=== PATIENT | female | born 1995 | race Two or more races ===

== ENCOUNTER 2024-03-31 10:47 | Emergency (ER) | payer MEDICAID, SELFPAY ==
[2024-03-31 10:53] VITALS: PULSE 92; RESP 20; O2SAT 98
[2024-03-31 11:04] VITALS: BP 153/84; PULSE 91; RESP 20; TEMP 37.1; O2SAT 97
[2024-03-31] MEDS: METOCLOPRAMIDE INJ 5 MG/ML VIAL 2 ML 10 MG IM ×2 (11:06→19:36)
[2024-03-31 11:28] LABS: Collection Type, Urine Clean Catch
[2024-03-31 11:40] LABS: Bacteria,Urine 4+; Bilirubin,Urine 1+ (Negative); Blood,Urine 2+ (Negative); Color,Urine Orange (Lt Yel-Yel); Culture Indicated,Urine Contaminated; Glucose, Urine Trace (Negative); Ketones,Urine 3+ (Negative); Leukocyte Esterase,Urine Positive (Negative); Nitrite,Urine Negative (Negative); PH,Urine 5.5 (5.0-7.0); Protein,Urine 2+ (Neg - Trace); RBC,Urine 45 /hpf (0-3); Specific Gravity,Urine 1.032 (1.001-1.035); Squamous Epithelial Cell,Urine 129 /hpf (0-5); WBC,Urine 68 /hpf (0-5)
[2024-03-31 11:41] LABS: Clarity,Urine Turbid (Clear/Hazy)
[2024-03-31 11:46] LABS: HCG Qualitative,Urine Negative
[2024-03-31 11:51] LABS: Basophils % (Auto) 0 % (0-2.5); Eosinophils % (Auto) 0 % (0-10); Hematocrit 43.3 % (36.0-46.0); Hemoglobin 14.2 g/dL (12.0-16.0); Immature Granulocytes % (Auto) 1 % (0-0); Immature Granulocytes Auto 0.07 Thou/mm3 (0.00-0.00); Lymphocytes # (Auto) 3.3 Thou/mm3 (1.0-4.8); Lymphocytes % (Auto) 25 % (10-50); Mean Corpuscular HGB Conc 32.8 g/dl (31.0-37.0); Mean Corpuscular Hemoglobin 26.2 pg (25.0-35.0); Mean Corpuscular Volume 80 fL (80-100); Monocytes % (Auto) 7 % (0-12); Neutrophils # (Auto) 8.7 Thou/mm3 (1.8-7.7); Neutrophils % (Auto) 67 % (37-80); Nucleated Red Blood Cell % 0 /100 WBC (0); Platelet Count 399 Thou/mm3 (140-440); RDW Standard Deviation 37.1 fL (36.4-46.3); Red Blood Count 5.41 Miln/mm3 (4.00-5.20); White Blood Count 13.1 Thou/mm3 (3.6-11.0)
[2024-03-31 12:13] LABS: Alanine Aminotransferase 62 U/L (10-49); Albumin, Serum 5.2 gm/dL (3.5-5.0); Albumin/Globulin Ratio 1.7 (1.2-2.2); Alkaline Phosphatase 105 U/L (46-116); Anion Gap 10 (7-16); Aspartate Amino Transferase 37 U/L (0-34); BUN/Creatinine Ratio 11 Ratio (12-20); Bilirubin,Total 1.7 mg/dL (0.3-1.2); Blood Urea Nitrogen 10 mg/dL (9-23); Calcium 10.2 mg/dL (8.3-10.6); Calcium (Corrected) 10.2 mg/dL (8.5-10.1); Carbon Dioxide 27.7 mMol/L (20.0-31.0); Chloride 100 mMol/L (98-107); Creatinine (Component) 0.9 mg/dL (0.6-1.3); Glucose 134 mg/dL (74-106); Lipase 36 U/L (12-53); Osmolality,Calculated 276 (275-295); Potassium 3.2 mMol/L (3.4-5.1); Sodium 138 mMol/L (136-145); Total Protein 8.2 gm/dL (5.7-8.2); eGFR > 60 See Note
--- NOTE | 2024-03-31 12:25 | PD.EDRME ---
Rapid Medical Screening Exam RME Arrival date/time: 03/31/24 10:47 28-year-old female presents emergency department complaint of nausea vomiting abdominal pain Time Seen by Provider: 03/31/24 11:02 Vital signs: Vital Signs Temperature 98.7 F 03/31/24 11:04 Pulse Rate 91 03/31/24 11:04 Respiratory Rate 20 03/31/24 11:04 Blood Pressure 153/84 H 03/31/24 11:04 Pulse Oximetry (%) 97 03/31/24 11:04 Oxygen Delivery Method Room Air 03/31/24 11:04
--- NOTE | 2024-03-31 12:26 | XR_ITS ---
Examination: Abdomen sonogram, Limited Date and time of exam: March 31, 2024 1303 hours INDICATIONS: Epigastric pain nausea vomiting beginning 3 days ago Technique: Real-time bui scale transabdominal sonographic images of the upper abdomen obtained. Findings: Absent gallbladder Normal common bile duct 0.4 cm Pancreatic head 2.5 cm Liver 13 cm fatty infiltration no focal liver lesions Normal hepatopedal portal venous flow Patent IVC IMPRESSION: Absent gallbladder Normal common bile duct Fatty liver
[2024-03-31] MEDS: PROMETHAZINE INJ 25 MG/ML VIAL 12.5 MG IM (14:51)
[2024-03-31 16:04] VITALS: BP 146/92; PULSE 76; RESP 16; TEMP 36.7; O2SAT 100
[2024-03-31 17:05] LABS: Cardiac Risk Estimate 2.8 RATIO (3.7-5.6); Cholesterol 127 mg/dL (132-200); HDL Cholesterol 45 mg/dL (40-60); LDL Cholesterol,Calculated 63 mg/dL (0-130); Triglycerides 96 mg/dL (30-150)
--- NOTE | 2024-03-31 18:38 | PD.EDADULT ---
ED General RME/HPI General Chief complaint: Nausea/Vomiting/Diarrhea Stated complaint: VOMITING Time Seen by Provider: 03/31/24 11:02 Arrival date/time: 03/31/24 10:47 CC: Center abdominal pain HPI patient notes that she has had a hernia for the past 2 to 3 years, states that after vomiting it popped out . Patient states localized pain is 6 to an 8 on a 10 scale nonradiating no longer nauseated. Patient denies fever chills chest pain shortness of breath or difficulty breathing. RME / HPI RME / HPI narrative: 03/31/24 10:47 28-year-old female presents emergency department complaint of nausea vomiting abdominal pain Related Data Home Medications ?Medication ?Instructions ?Recorded ?Confirmed alprazolam 1 mg tablet (Xanax) 1 mg PO TID PRN 06/08/22 12/18/22 escitalopram oxalate 10 mg tablet 10 mg PO QDAY 06/08/22 12/18/22 (Lexapro) metoprolol succinate 50 mg 50 mg PO BID 06/08/22 12/18/22 tablet,extended release 24 hr (Toprol XL) norgestimate-ethinyl estradiol 1 tab PO QDAY 06/08/22 12/18/22 0.18 mg/0.215mg/0.25mg-35 mcg(28)tablet omeprazole 40 mg capsule,delayed 40 mg PO QDAY 06/08/22 12/18/22 release promethazine 25 mg tablet 25 mg PO TID PRN 06/08/22 12/18/22 quetiapine 100 mg tablet (Seroquel) 100 mg PO QDAY 06/08/22 12/18/22 zolpidem 10 mg tablet (Ambien) 10 mg PO QHS 06/08/22 12/18/22 Previous Rx's ?Medication ?Instructions ?Recorded meloxicam 7.5 mg tablet 7.5 mg PO QDAY #10 tabs 03/31/24 Allergies Allergy/AdvReac Type Severity Reaction Status Date / Time clavulanic acid Allergy Severe burning Verified 12/18/22 13:14 [From Augmentin] sensation amoxicillin [From Augmentin] AdvReac Severe burning Verified 12/18/22 13:14 sensation ibuprofen AdvReac Severe DUE TO Verified 12/18/22 13:14 KIDNEYS Review of Systems Review of Systems Narrative Review of Systems: GEN: No fever, no chills, no weight loss EYES: No discharge, no visual changes, no pain HEENT: No ear pain, no congestion, no sore throat PULM: No shortness of breath, no cough, no congestion CV: No chest pain, no dyspnea on exertion, no palpitations GI: No nausea, no vomiting, no diarrhea, + pain, no constipation : No frequency, no urgency, no dysuria MUSC/SKEL: No joint pain, no back pain SKIN: No rash PSYCH: No hallucinations, no depression HEME/LYMPH: No easy bleeding or bruising tendencies NEURO: No weakness, no headache Past Medical History Past Medical History NEUROLOGIC: Negative Neurological Disorders or Seizures CARDIAC: Positive Cardiac Disorders and Hypertension (Started medication at 13 years old); Negative Congestive Heart Failure RESPIRATORY: Negative Chronic Obstructive Pulmonary Disease (COPD) or Asthma GASTROINTESTINAL: Positive Gastrointestinal Disorders, Gall Bladder Disease, Gastroesophageal Reflux Disease and Obesity GENITOURINARY: Positive Genitourinary Disorders (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); Negative Renal Disease REPRODUCTIVE: Positive Previous Pregnancies (); Negative Endometriosis MUSCULOSKELETAL: Negative Musculoskeletal Disorders ENDOCRINE: Negative Endocrine Disorders, Diabetes Mellitus Type 1 or Diabetes Mellitus Type 2 HEMATOLOGIC: Negative Blood Disorders, Anemia, Sickle Cell Disease or Clotting Problems PSYCHO/SOCIAL: Positive Anxiety OTHER HISTORY: Positive Falls; Negative Hospitalization (age 3), Autoimmune Disease, Shingles, Blood Transfusions, Anesthesia Reactions, Organ Transplant, Chemotherapy, Radiation Therapy, Hyperbaric Therapy, MRSA, VRSA or Vancomycin-Resistant Enterococci Family History FAMILY HISTORY: Positive Family Respiratory Disorders (COPD) and Family Cardiac Disorders (grandmother-HTN, heart attack, coronary artery disease, stroke); Negative Family Psychiatric Problems, Family Gastrointestinal Problems, Family Cancer, Family Surgery or Family Anesthesia Reaction Surgical History SURGICAL: Positive Nephrectomy (3rd kidney removed as a child); Negative Cardiac Surgery, Endocrine Surgery, Ear Surgery, Abdominal Surgery, Joint Replacement, Neurologic Surgery, Mastectomy, Section or Organ Transplant Social History SMOKING STATUS: Current some day smoker SECOND HAND EXPOSURE: Yes ED Exam Narrative Physical exam: [General: Obese, in mild discomfort but not in any acute distress Head normocephalic HEENT: Eyes pupils are PERRLA EOMs are intact all other subsystems of HEENT are within acceptable limits Neck is supple nontender Chest equal chest rise nontender to palpation Respiratory: Clear to auscultation no wheezes crackles or rubs CV: Rate rhythm is regular no murmurs rubs or clicks Abdomen is distended secondary to body habitus soft nontender. Site-specific tenderness just proximal to the umbilicus subtle bulge is appreciated underneath the adipose tissue of the abdomen. Back: No CVA tenderness no spinous process tenderness from cervical spine thoracic and lumbar spine Skin: Intact no petechiae rash induration ulceration or crepitus Extremities: Moving all extremity against resistance cap refill less than 2 seconds neurosensory intact Neuro: Awake alert oriented x3 Glascow coma 15 no focal deficits] Course Quality Measures none Orders Category Date Time Status US gall bladder Stat Exams 03/31/24 12:26 Completed CBC Stat Lab 03/31/24 11:30 Completed Comprehensive Metabolic Panel Stat Lab 03/31/24 11:30 Completed HCG Qualitative,Urine Stat Lab 03/31/24 11:24 Completed Lipase Stat Lab 03/31/24 11:30 Completed Lipid Panel Stat Lab 03/31/24 11:30 Completed UA, C/S IF [Urinalysis, C/S if Indicated] Stat Lab 03/31/24 11:24 Completed Meloxicam [Mobic] Med 03/31/24 18:43 Discontinued 7.5 mg PO X1 ONE Metoclopramide Inj [Reglan Inj] Med 03/31/24 11:02 Discontinued 10 mg IM X1 ONE Metoclopramide Inj [Reglan Inj] Med 03/31/24 19:27 Discontinued 10 mg IM X1 ONE Ondansetron Odt [Zofran Odt] Med 03/31/24 19:09 Discontinued 4 mg PO X1 ONE Promethazine Inj [Phenergan Inj] Med 03/31/24 14:26 Discontinued 12.5 mg IM X1 ONE Vital Signs Vital signs: Vital Signs Temperature 98.7 F 03/31/24 11:04 Pulse Rate 91 03/31/24 11:04 Respiratory Rate 20 03/31/24 11:04 Blood Pressure 153/84 H 03/31/24 11:04 Pulse Oximetry (%) 97 03/31/24 11:04 Oxygen Delivery Method Room Air 03/31/24 11:04 Procedures -ED Procedure Comment Hernia reduction: Verbal consent obtained, patient placed in Trendelenburg. Then with gentle pressure, the umbilical hernia was reduced without complication patient experienced immediate relief. MDM Patient data External records reviewed:: [facility] previous records Clinical information provided by:: patient Social determinants that could affect healthcare access:: none Patient has the following chronic illnesses:: Umbilical hernia anxiety hypertension How is presenting disease/condition affected by chronic disease/condition?: uneffected by Evaluation data The following diagnostics were reviewed and interpreted by me:: lab results and radiology exam(s) Lab and/or radiology exams considered but not ordered:: CBC shows a mild leukocytosis of 13.1 no anemia or thrombocytopenia CMP's shows no acute electrolyte imbalances renal impairment or transaminitis. T. bili is mildly elevated Lipase is normal Urine is unremarkable Ultrasound as interpreted by me read by radiology shows the patient has an absent gallbladder and no CBD dilatation. Interpretation Summary: Umbilical hernia with reduction Medications Medications considered but not ordered:: None Medication administrations:: Medication Administration History Discontinued Medications Meloxicam (Meloxicam 7.5 Mg Tablet) 7.5 mg PO X1 ONE Stop: 03/31/24 18:44 Last Admin: 03/31/24 19:37 Dose: 7.5 mg Documented By: TIESHA Metoclopramide HCl (Metoclopramide Inj 5 Mg/Ml Vial 2 Ml) 10 mg IM X1 ONE; Protocol Stop: 03/31/24 11:03 Last Admin: 03/31/24 11:06 Dose: 10 mg Documented By: MAYRA Metoclopramide HCl (Metoclopramide Inj 5 Mg/Ml Vial 2 Ml) 10 mg IM X1 ONE; Protocol Stop: 03/31/24 19:28 Last Admin: 03/31/24 19:36 Dose: 10 mg Documented By: TIESHA Ondansetron HCl (Ondansetron Odt 4 Mg Tabrap) 4 mg PO X1 ONE; Protocol Stop: 03/31/24 19:10 Last Admin: 03/31/24 19:18 Dose: 4 mg Documented By: TIESHA Promethazine HCl (Promethazine Inj 25 Mg/Ml Vial) 12.5 mg IM X1 ONE; Protocol Stop: 03/31/24 14:27 Last Admin: 03/31/24 14:51 Dose: 12.5 mg Documented By: MAYRA None Consultations Consultation(s) initiated? (list below): No Diagnosis Differential Diagnosis ED Complaint MDM: Umbilical hernia incarcerated hernia choledocholithiasis Most likely diagnosis given after review of the tests above:: Umbilical hernia Admission Indicated Admission indicated?: not indicated Explain why admission is indicated or not indicated:: Stable for outpatient follow-up Admission Request Was there a request for admission?: No Disposition Plan Disposition Plan: Discharge Discharge Attestation Discharge Attestation: The patient and all family members were given an opportunity to ask questions and understood the discharge instructions. Discharge instructions specifically effects, indications for sooner follow up or return to the emergency department, and the expected course of current diagnosis. Patient condition: Stable Medical Decision Making Differential Diagnosis Differential Diagnosis: Umbilical hernia incarcerated hernia choledocholithiasis Lab Data 03/31/24 11:30 03/31/24 11:30 Labs: Lab Results 03/31/24 03/31/24 Range/Units 11: 11:30 WBC 13.1 H (3.6-11.0) Thou/mm3 RBC 5.41 H (4.00-5.20) Miln/mm3 Hgb 14.2 (12.0-16.0) g/dL Hct 43.3 (36.0-46.0) % MCV 80 (80-100) fL MCH 26.2 (25.0-35.0) pg MCHC 32.8 (31.0-37.0) g/dl RDW Std Deviation 37.1 (36.4-46.3) fL Plt Count 399 (140-440) Thou/mm3 Neut % (Auto) 67 (37-80) % Lymph % (Auto) 25 (10-50) % [place] % (Auto) 7 (0-12) % Eos % (Auto) 0 (0-10) % Baso % (Auto) 0 (0-2.5) % Neut # (Auto) 8.7 H (1.8-7.7) Thou/mm3 Lymph # (Auto) 3.3 (1.0-4.8) Thou/mm3 [place] # (Auto) 1.0 H (0.0-0.8) Thou/mm3 Eos # (Auto) 0.0 (0.0-0.5) Thou/mm3 Baso # (Auto) 0.0 (0.0-0.2) Thou/mm3 Immature Gran # (Auto) 0.07 H (0.00-0.00) Thou/mm3 Absolute Nucleated RBC 0.00 (0.00-0.00) Thou/mm3 Immature Gran % 1 H (0-0) % Nucleated RBC % 0 (0) /100 WBC Sodium 138 (136-145) mMol/L Potassium 3.2 L (3.4-5.1) mMol/L Chloride 100 (98-107) mMol/L Carbon Dioxide 27.7 (20.0-31.0) mMol/L Anion Gap 10 (7-16) BUN 10 (9-23) mg/dL Creatinine 0.9 (0.6-1.3) mg/dL Estim Creat Clear Calc Not Performed. eGFR > 60 (60 - ) See Note BUN/Creatinine Ratio 11 L (12-20) Ratio Glucose 134 H (74-106) mg/dL Calculated Osmolality 276 (275-295) Calcium 10.2 (8.3-10.6) mg/dL Corrected Calcium 10.2 H (8.5-10.1) mg/dL Total Bilirubin 1.7 H (0.3-1.2) mg/dL AST 37 H (0-34) U/L ALT 62 H (10-49) U/L Alkaline Phosphatase 105 (46-116) U/L Total Protein 8.2 (5.7-8.2) gm/dL Albumin 5.2 H (3.5-5.0) gm/dL Globulin 3.0 (2.3-3.5) gm/dL Albumin/Globulin Ratio 1.7 (1.2-2.2) Triglycerides 96 (30-150) mg/dL Cholesterol 127 L (132-200) mg/dL LDL Cholesterol, Calc 63 (0-130) mg/dL HDL Cholesterol 45 (40-60) mg/dL Cholesterol/HDL Ratio 2.8 L (3.7-5.6) RATIO Lipase 36 (12-53) U/L Ur Collection Type Clean Catch Urine Color [place] A (Lt Yel-Yel) Urine Clarity Turbid A (Clear/Hazy) Urine pH 5.5 (5.0-7.0) Ur Specific [place] 1.032 (1.001-1.035) Urine Protein 2+ A (Neg - Trace) Urine Glucose (UA) Trace (Negative) Urine Ketones 3+ A (Negative) Urine Blood 2+ A (Negative) Urine Nitrite Negative (Negative) Urine Bilirubin 1+ A (Negative) Urine Urobilinogen (Auto) 2.0 (0.0-1.0) mg/dL Ur Leukocyte Esterase Positive (Negative) Urine RBC 45 H (0-3) /hpf Urine WBC 68 H (0-5) /hpf Ur Squamous Epith Cells 129 H (0-5) /hpf Urine Bacteria 4+ A (None) Ur Culture Indicated? Contaminated Urine HCG, Qual Negative Discharge Plan Plan Patient Disposition: HOME (Self Care) Patient condition on transfer: Stable Prescriptions/Referrals Prescriptions/Med Rec: New meloxicam 7.5 mg tablet 7.5 mg PO QDAY Qty: 10 0RF No Action omeprazole 40 mg capsule,delayed release(DR/EC) 40 mg PO QDAY zolpidem [Ambien] 10 mg tablet 10 mg PO QHS promethazine 25 mg tablet 25 mg PO TID PRN escitalopram oxalate [Lexapro] 10 mg tablet 10 mg PO QDAY alprazolam [Xanax] 1 mg tablet 1 mg PO TID PRN metoprolol succinate [Toprol XL] 50 mg tablet extended release 24 hr 50 mg PO BID quetiapine [Seroquel] 100 mg tablet 100 mg PO QDAY norgestimate-ethinyl estradiol 0.18/0.215/0.25 mg-35 mcg (28) tablet 1 tab PO QDAY Referrals: Wilner Escobar MD [Primary Care Provider] - In 1 week Problem List Clinical Impression: Hernia, umbilical Patient/Caregiver Discharge Instructions Other Activity Instructions:: Take the medications as prescribed follow-up with your primary care provider if there is a worsening of symptoms consider consulting with a surgeon or return the emergency room. Education Materials: ED Hernia (Adult) Print Language: Mongolian Stand Alone Forms: Lynda Award Info., Work/School Release, Patient Portal Info Letter Attestation Attestation The patient was seen by the midlevel practitioner. I, the co-signing physician, was present during the entire ER visit. While I did not physically examine the patient, I was available for consultation as needed.
[2024-03-31] MEDS: ONDANSETRON ODT 4 MG TABRAP PO (19:18)
[2024-03-31] MEDS: MELOXICAM 7.5 MG TABLET PO (19:37)
[2024-03-31 20:07] VITALS: BP 154/83; PULSE 61; RESP 18; TEMP 36.7; O2SAT 99
== END 2024-03-31 20:38 | disposition home or self-care (01) ==
PROVIDERS: Nurse Practitioner Primary Care; Registered Nurse General Practice; Emergency Provider Emergency Medicine; PCP Family Medicine
DX: K42.9 Umbilical hernia without obstruction or gangrene (principal)
CPT/HCPCS: 36415; 76705; 80053; 80061; 81001; 81025; 83690; 85025; 96372; 99284; J2550; J2765; Q0162; A9270

== ENCOUNTER 2024-09-02 10:36 | Outpatient (AMB) | payer MEDICAID, SELFPAY ==
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
[2024-09-02 10:57] VITALS: BP 127/70; PULSE 76; RESP 18; TEMP 36.2; O2SAT 97; BMI 39.3
== END 2024-09-02 11:20 | disposition home or self-care (01) ==
LOC: HODSOBC 10:36
PROVIDERS: PCP Family Medicine; Referring Provider Family Medicine; Supervising Provider Advanced Practice Midwife; Visit Provider Advanced Practice Midwife
DX: O09.891 Supervision of other high risk pregnancies, first trimester (principal); Z3A.08 8 weeks gestation of pregnancy; O10.911 Unspecified pre-existing hypertension complicating pregnancy, first trimester; O99.331 Smoking (tobacco) complicating pregnancy, first trimester; F17.210 Nicotine dependence, cigarettes, uncomplicated; O09.291 Supervision of pregnancy with other poor reproductive or obstetric history, first trimester; Z87.59 Personal history of other complications of pregnancy, childbirth and the puerperium; O99.341 Other mental disorders complicating pregnancy, first trimester; F41.9 Anxiety disorder, unspecified; F32.A Depression, unspecified; O99.321 Drug use complicating pregnancy, first trimester; F12.90 Cannabis use, unspecified, uncomplicated; O99.891 Other specified diseases and conditions complicating pregnancy; M54.2 Cervicalgia; G89.29 Other chronic pain; Z79.899 Other long term (current) drug therapy
CPT/HCPCS: 99213; G0463

== ENCOUNTER 2024-09-23 11:08 | Outpatient (AMB) | payer MEDICAID, SELFPAY ==
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
[2024-09-23 11:19] VITALS: BP 116/73; PULSE 75; RESP 16; TEMP 36.6; O2SAT 99; BMI 39.7
[2024-09-23 14:04] LABS: Bilirubin,Urine Clinitek Negative (Negative); Blood,Urine Clinitek Trace-intact (Negative); Glucose, Urine Clinitek Negative (Negative); Ketones,Urine Clinitek Negative (Negative); Leukocyte Esterase,Urine Clin 1+ (Negative); Nitrite,Urine Clinitek Negative (Negative); PH,Urine Clinitek 7.5 (5.0-7.0); Protein,Urine Clinitek 1+ (Neg - Trace); Urobilinogen,Urine Clinitek 0.2 mg/dL (0.0-1.0)
== END 2024-09-23 11:56 | disposition home or self-care (01) ==
LOC: HODSOBC 11:08
PROVIDERS: PCP Family Medicine; Referring Provider Family Medicine; Supervising Provider Advanced Practice Midwife; Visit Provider Advanced Practice Midwife
DX: O09.891 Supervision of other high risk pregnancies, first trimester (principal); Z3A.11 11 weeks gestation of pregnancy; O10.911 Unspecified pre-existing hypertension complicating pregnancy, first trimester; Z79.899 Other long term (current) drug therapy; O99.341 Other mental disorders complicating pregnancy, first trimester; F43.10 Post-traumatic stress disorder, unspecified; F31.9 Bipolar disorder, unspecified; F41.9 Anxiety disorder, unspecified; O99.611 Diseases of the digestive system complicating pregnancy, first trimester; K21.9 Gastro-esophageal reflux disease without esophagitis; Z87.891 Personal history of nicotine dependence
CPT/HCPCS: 81001; 99215; G0463

== ENCOUNTER 2024-10-02 13:23 | Emergency (ER) | payer MEDICAID, SELFPAY ==
[2024-10-02] VITALS (8 sets, daily range): BP systolic 122–176; BP diastolic 86–111; PULSE 92–93; RESP 18–28; TEMP 35.9–37.2; O2SAT 96–100; BMI 39.6
[2024-10-02 14:04] LABS: Basophils % (Auto) 0 % (0-2.5); Eosinophils # (Auto) 0.1 Thou/mm3 (0.0-0.5); Eosinophils % (Auto) 1 % (0-10); Hematocrit 39.4 % (36.0-46.0); Hemoglobin 13.8 g/dL (12.0-16.0); Immature Granulocytes % (Auto) 0 % (0-0); Immature Granulocytes Auto 0.04 Thou/mm3 (0.00-0.00); Lymphocytes # (Auto) 2.4 Thou/mm3 (1.0-4.8); Lymphocytes % (Auto) 22 % (10-50); Mean Corpuscular Hemoglobin 27.6 pg (25.0-35.0); Mean Corpuscular Volume 79 fL (80-100); Monocytes # (Auto) 0.6 Thou/mm3 (0.0-0.8); Monocytes % (Auto) 5 % (0-12); Neutrophils # (Auto) 7.8 Thou/mm3 (1.8-7.7); Neutrophils % (Auto) 72 % (37-80); Nucleated Red Blood Cell % 0 /100 WBC (0); Platelet Count 292 Thou/mm3 (140-440); RDW Standard Deviation 37.8 fL (36.4-46.3); White Blood Count 10.8 Thou/mm3 (3.6-11.0)
[2024-10-02] MEDS: PROMETHAZINE INJ 25 MG/ML VIAL IM (14:06)
[2024-10-02] MEDS: SODIUM CHLORIDE 0.9% 1000 ML 1,000 ML 999 ML IV (14:07)
--- NOTE | 2024-10-02 14:07 | XR_ITS ---
Examination: Complete OB ultrasound, less than 14 weeks, transabdominal Date and time of exam: October 02, 2024 1423 hours INDICATIONS: Nausea vomiting beginning 4 days ago Technique: Obstetrical ultrasound images less than 14 weeks performed via transabdominal imaging Findings: A normal shaped single intrauterine gestation is present in the uterus. pole 3.9 cm corresponds to 10 weeks 6 days gestational age Cardiac motion 176 BPM Ultrasonographic survey of visible and placental structures unremarkable. Amniotic fluid volume appears appropriate for this estimated gestational age. Right ovary 3.3 cm arterial flow 9 mm follicular cyst Left ovary 4.0 cm arterial flow 17 mm follicular cyst IMPRESSION: Viable intrauterine gestation 10 weeks 6 days.
[2024-10-02 14:28] LABS: Alanine Aminotransferase < 7 U/L (10-49); Albumin, Serum 4.4 gm/dL (3.5-5.0); Albumin/Globulin Ratio 1.5 (1.2-2.2); Alkaline Phosphatase 61 U/L (46-116); Anion Gap 14 (7-16); Aspartate Amino Transferase 17 U/L (0-34); BUN/Creatinine Ratio 8 Ratio (12-20); Bilirubin,Total 0.8 mg/dL (0.3-1.2); Blood Urea Nitrogen 5 mg/dL (9-23); Calcium 9.4 mg/dL (8.3-10.6); Calcium (Corrected) 9.4 mg/dL (8.5-10.1); Carbon Dioxide 23.3 mMol/L (20.0-31.0); Chloride 100 mMol/L (98-107); Creatinine (Component) 0.6 mg/dL (0.6-1.3); Estimated Creatinine Clearance 145.9 mL/min (>60); Glucose 96 mg/dL (74-106); Lipase 66 U/L (12-53); Osmolality,Calculated 271 (275-295); Potassium 3.3 mMol/L (3.4-5.1); Sodium 137 mMol/L (136-145); Total Protein 7.4 gm/dL (5.7-8.2); eGFR > 60 See Note
[2024-10-02 15:31] LABS: Collection Type, Urine Clean Catch
[2024-10-02 15:35] LABS: HCG Qualitative,Urine Positive
[2024-10-02 15:40] LABS: Bilirubin,Urine Negative (Negative); Blood,Urine Negative (Negative); Color,Urine Yellow (Lt Yel-Yel); Glucose, Urine Negative (Negative); Ketones,Urine 4+ (Negative); Leukocyte Esterase,Urine Positive (Negative); Nitrite,Urine Negative (Negative); PH,Urine 6.5 (5.0-7.0); Protein,Urine 1+ (Neg - Trace); RBC,Urine 3 /hpf (0-3); Specific Gravity,Urine 1.021 (1.001-1.035); Squamous Epithelial Cell,Urine 22 /hpf (0-5); Urobilinogen,Urine Negative mg/dL (0.0-1.0); WBC,Urine 17 /hpf (0-5)
[2024-10-02 15:46] LABS: Bacteria,Urine 1+; Clarity,Urine Hazy (Clear/Hazy)
--- NOTE | 2024-10-02 15:55 | EDNOTE_ITS ---
Nausea/Vomit./Diarrhea-RME/HPI General Chief complaint: Nausea/Vomiting/Diarrhea Stated complaint: COMPLICATIONS Time Seen by Provider: 10/02/24 13:36 Arrival date/time: 10/02/24 13:23 Limitations: no limitations RME / HPI RME / HPI Narrative: 29 year old female who is currently ~ 10 weeks gestational age, and history of gestational diabetes with previous presents to the ED for evaluati on of nausea and vomiting beginning several days ago. Additionally reports she is feeling anxious about babies health and had paid for a private ultrasound to be performed several days ago showing fetus was 10 weeks gestational age. No fevers, chills, sweats, abdominal pain, vaginal bleeding, or urinary symptoms. Denies smoking or drinking. Related Data Previous Rx's ?Medication ?Instructions ?Recorded labetalol 200 mg tablet 200 mg PO BID hypertention 3 0 days 09/02/24 #60 tabs promethazine 25 mg rectal 25 mg NV Q6H PRN nausea and 10/02/24 suppository vomiting #12 ea Allergies Allergy/AdvReac Type Severity Reaction Status Date / Time clavulanic acid (From Allergy Severe burning Verified 09/23/24 11:20 Augmentin) sensation amoxicillin (From Augmentin) AdvReac Severe burning Verified 09/23/24 11:20 sensation ibuprofen AdvReac Severe DUE TO Verified 09/23/24 11:20 KIDNEYS Review of Systems Review of Systems Narrative Review of Systems: GEN: No fever, no chills, no weight loss EYES: No discharge, no visual changes, no pain HEENT: No ear pain, no congestion, no sore throat PULM: No shortness of breath, no cough, no congestion CV: No chest pain, no dyspnea on exertion, no palpitations GI: +nausea, +vomiting, no diarrhea, no pain, no constipation : No frequency, no urgency and no dysuria MUSC/SKEL No joint pain, no back pain SKIN: No rash NEURO: No weakness, no headache Past Medical History Past Medical History CARDIAC: Positive Cardiac Disorders and Hypertension (Started medication at 13 years old) GASTROINTESTINAL: Positive Gastrointestinal Disorders, Gall Bladder Disease, Gastroesophageal Reflux Disease and Obesity GENITOURINARY: Positive Genitourinary Disorders (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) REPRODUCTIVE: Positive Previous Pregnancies () PSYCHO/SOCIAL: Positive Anxiety OTHER HISTORY: Positive Falls Family History FAMILY HISTORY: Positive Family Respiratory Disorders (COPD) and Family Cardiac Disorders (grandmother-HTN, heart attack, coronary artery disease, stroke); Negative Family Psychiatric Problems, Family Gastrointestinal Problems, Family Cancer, Family Surgery or Family Anesthesia Reaction Surgical History SURGICAL: Positive Nephrectomy (3rd kidney removed as a child); Negative Cardiac Surgery, Endocrine Surgery, Ear Surgery, Abdominal Surgery, Joint Replacement, Neurologic Surgery, Mastectomy or Section Social History SMOKING STATUS: Former smoker SECOND HAND EXPOSURE: Yes ED Exam General Limitations: Present no limitations General appearance: Present alert and other (appears ill ) Head Head exam: Present atraumatic, normocephalic and normal inspection Eye Eye exam: Present normal appearance, PERRL and EOMI ENT ENT exam: Present normal exam, normal oropharynx and mucous membranes dry Neck Neck exam: Present normal inspection, full ROM and trachea midline Chest Chest inspection: Present normal inspection and symmetric chest wall rise Respiratory Respiratory exam: Present normal lung sounds bilaterally Cardiovascular Cardiovascular exam: Present regular rate, normal rhythm and normal heart sounds Abdominal Exam Abdominal exam: Present soft and normal bowel sounds Extremities Exam Extremities exam: Present normal inspection and full ROM Back Exam Back exam: Present normal inspection and full ROM Neurological Exam Neurological exam: Present alert, oriented X3 and CN II-XII intact Psychiatric Psychiatric exam: Present normal affect and normal mood Skin Skin exam: Present warm, dry, intact and normal color Course Quality Measures none Orders Category Date Time Status Video Control Operator STAT Care 10/02/24 13:36 Active Continuous Pulse Oximetry STAT Care 10/02/24 13:37 Active Insert IV STAT Care 10/02/24 13:36 Active NPO STAT Care 10/02/24 13:36 Active US OB <= 14 weeks fetus Stat Exams 10/02/24 14:07 Completed CBC Stat Lab 10/02/24 13:50 Completed Comprehensive Metabolic Panel Stat Lab 10/02/24 13:50 Completed HCG Qualitative,Urine Stat Lab 10/02/24 13:16 Completed Lipase Stat Lab 10/02/24 13:50 Completed Urinalysis Stat Lab 10/02/24 13:16 Completed Promethazine Inj [Phenergan Inj] Med 10/02/24 13:38 Discontinued 25 mg IM X1 ONE Sodium Chloride 0.9% 1000 ml [Ns] 1,000 ml Med 10/02/24 13:36 Discontinued IV 999 mls/hr Vital Signs Vital signs: Vital Signs Pulse Oximetry (%) 99 10/02/24 13:30 Nausea/Vomiting/Diarrhea MDM Narrative MDM Narrative:: Josephine Negrete am scribing for and in the presence of Dr. Portillo. Patients labs today were unremarkable with exception of very mild hypokalemia at 3.3 mMol/L. Advised patient eat potassium rich foods at home. Patient remains clinically stable throughout the emergency department visit. We reviewed all the results, analysis, and treatment plans. Patient is amenable to discharge. Strict return precautions were outlined. Patient was discharged in stable condition. Patient data External records reviewed:: [facility] previous records (I reviewed ED visit on 03/31/2024 ) Clinical information provided by:: patient Social determinants that could affect healthcare access:: none Patient has the following chronic illnesses:: No chronic medical hx reported States history of gestational diabetes with previous How is presenting disease/condition affected by chronic disease/condition?: uneffected by Evaluation data The following diagnostics were reviewed and interpreted by me:: lab results and radiology exam(s) Lab and/or radiology exams considered but not ordered:: None Interpretation Summary: Ordering Physician: Milan Portillo MD Date of Service: 10/02/24 Procedure(s): US OB <= 14 weeks fetus Accession Number(s): [id number] cc: Milan Portillo MD; Donell Doherty MD; Wilner Escobar MD~ Examination: Complete OB ultrasound, less than 14 weeks, transabdominal Date and time of exam: October 02, 2024 1423 hours INDICATIONS: Nausea vomiting beginning 4 days ago Technique: Obstetrical ultrasound images less than 14 weeks performed via transabdominal imaging Findings: A normal shaped single intrauterine gestation is present in the uterus. pole 3.9 cm corresponds to 10 weeks 6 days gestational age Cardiac motion 176 BPM Ultrasonographic survey of visible and placental structures unremarkable. Amniotic fluid volume appears appropriate for this estimated gestational age. Right ovary 3.3 cm arterial flow 9 mm follicular cyst Left ovary 4.0 cm arterial flow 17 mm follicular cyst IMPRESSION: Viable intrauterine gestation 10 weeks 6 days. Dictated By: Donell Doherty MD Signed By: <Electronically signed by Donell Doherty MD in OV> 10/02/24 1511 Medications / Prescriptions Medications / Prescriptions considered but not ordered:: None Medication administrations:: Medication Administration History Discontinued Medications Sodium Chloride (Ns) 1,000 mls @ 999 mls/hr IV .Q1H1M ONE Stop: 10/02/24 14:36 Last Infusion: 10/02/24 15:48 Dose: Infused Documented By: Admin: 10/02/24 14:07 Dose: 999 mls/hr Documented By: EBEN Promethazine HCl (Promethazine Inj 25 Mg/Ml Vial) 25 mg IM X1 ONE; Protocol Stop: 10/02/24 13:39 Last Admin: 10/02/24 14:06 Dose: 25 mg Documented By: EBEN See above Consultations Consultation(s) initiated? (list below): No Diagnosis Nausea Differential Diagnosis: food poisoning, gastroenteritis, drug-induced nausea and vomiting, dehydration and other (hyperemesis gravidarum ) Most likely diagnosis given after review of the tests above:: Hyperemesis gravidarum Admission Indicated Admission indicated?: not indicated Admission Request Was there a request for admission?: No Disposition Plan Disposition Plan: Discharge Discharge Attestation Discharge Attestation: The patient and all family members were given an opportunity to ask questions and understood the discharge instructions. Discharge instructions specifically effects, indications for sooner follow up or return to the emergency department, and the expected course of current diagnosis. Patient condition: Stable Discharge Plan Plan Patient Disposition: HOME (Self Care) Prescriptions/Referrals Prescriptions/Med Rec: New promethazine 25 mg suppository 25 mg NV Q6H MDD 4 PRN (Reason: nausea and vomiting) Qty: 12 1RF No Action labetalol 200 mg tablet 200 mg PO BID 30 Days Qty: 60 5RF Problem List Clinical Impression: Hyperemesis gravidarum Patient/Caregiver Discharge Instructions Education Materials: ED Hyperemesis Gravidarum, ED Potassium-Rich Foods Additional Instructions: Take a B-complex vitamin daily. You can also buy a sea band for nausea relief. Eat potassium rich foods at home. Follow-up with your primary care doctor in 3 to 5 days for recheck. You can return to the emergency department sooner if symptoms worsen or if you notice any new, concerning issues. Print Language: Indonesian Stand Alone Forms: Lynda Award Info., Patient Portal Info Letter
[2024-10-02] MEDS: PROMETHAZINE 25 MG SUPP PR (16:25)
== END 2024-10-02 16:59 | disposition home or self-care (01) ==
PROVIDERS: Emergency Provider Family Medicine; PCP Family Medicine
DX: O21.0 Mild hyperemesis gravidarum (principal); Z3A.10 10 weeks gestation of pregnancy
CPT/HCPCS: 36415; 76801; 80053; 81001; 81025; 83690; 85025; 96360; 96361; 99284; J2550; J7030; A9270

== ENCOUNTER 2024-10-02 22:22 | Inpatient (IN) | payer MEDICAID, SELFPAY ==
[2024-10-02 22:24] VITALS: BMI 39.6
[2024-10-02 22:25] VITALS: BP 139/83; PULSE 81; RESP 18; TEMP 36.8; O2SAT 99
--- NOTE | 2024-10-02 22:26 | EDNOTE_ITS ---
Nausea/Vomit./Diarrhea-RME/HPI General Chief complaint: Nausea/Vomiting/Diarrhea Stated complaint: NAUSEA AND VOMITING Source: patient (Yeah you can get you could do it) Arrival date/time: 10/02/24 22:22 Limitations: no limitations RME / HPI RME / HPI Narrative: Dr. Barnett's Main ED Evaluation: 29yo female who is 10 weeks gestation BIBA from home presents to the ED for a chief complaint of nausea and vomiting x 3-4 days. Patient states she last smoked marijuana 3 days ago. What ever she can be admitted patient cannot tolerate liquids. Patient denies any fever, chills, diarrhea, constipation, UTI symptoms or any other associated symptoms. LMP was in July. CONSTRUCTION PROJECT COORDINATOR is Chika Jacobo. Related Data Previous Rx's ?Medication ?Instructions ?Recorded labetalol 200 mg tablet 200 mg PO BID hypertention 3 0 days 09/02/24 #60 tabs promethazine 25 mg rectal 25 mg ME Q6H PRN nausea and 10/02/24 suppository vomiting #12 ea Allergies Allergy/AdvReac Type Severity Reaction Status Date / Time clavulanic acid (From Allergy Severe burning Verified 10/02/24 22:43 Augmentin) sensation amoxicillin (From Augmentin) AdvReac Severe burning Verified 10/02/24 22:43 sensation ibuprofen AdvReac Severe DUE TO Verified 10/02/24 22:43 KIDNEYS Review of Systems Review of Systems Systems Reviewed: All systems reviewed, normal except as documented Past Medical History Past Medical History NEUROLOGIC: Negative Neurological Disorders or Seizures CARDIAC: Positive Cardiac Disorders and Hypertension (Started medication at 13 years old); Negative Congestive Heart Failure RESPIRATORY: Negative Chronic Obstructive Pulmonary Disease (COPD) or Asthma GASTROINTESTINAL: Positive Gastrointestinal Disorders, Gall Bladder Disease, Gastroesophageal Reflux Disease and Obesity GENITOURINARY: Positive Genitourinary Disorders (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); Negative Renal Disease REPRODUCTIVE: Positive Previous Pregnancies (); Negative Endometriosis MUSCULOSKELETAL: Negative Musculoskeletal Disorders ENDOCRINE: Negative Endocrine Disorders, Diabetes Mellitus Type 1 or Diabetes Mellitus Type 2 HEMATOLOGIC: Negative Blood Disorders, Anemia, Sickle Cell Disease or Clotting Problems PSYCHO/SOCIAL: Positive Anxiety OTHER HISTORY: Positive Falls; Negative Hospitalization (age 3), Autoimmune Disease, Shingles, Blood Transfusions, Anesthesia Reactions, Organ Transplant, Chemotherapy, Radiation Therapy, Hyperbaric Therapy, MRSA, VRSA or Vancomycin-Resistant Enterococci Family History FAMILY HISTORY: Positive Family Respiratory Disorders (COPD) and Family Cardiac Disorders (grandmother-HTN, heart attack, coronary artery disease, stroke); Negative Family Psychiatric Problems, Family Gastrointestinal Problems, Family Cancer, Family Surgery or Family Anesthesia Reaction Surgical History SURGICAL: Positive Nephrectomy (3rd kidney removed as a child); Negative Cardiac Surgery, Endocrine Surgery, Ear Surgery, Abdominal Surgery, Joint Replacement, Neurologic Surgery, Mastectomy, Section or Organ Transplant Social History SMOKING STATUS: Former smoker SECOND HAND EXPOSURE: Yes ED Exam General Limitations: Present no limitations General appearance: Present alert, in no apparent distress and other (actively vomiting) Head Head exam: Present atraumatic Eye Eye exam: Present normal appearance, PERRL and EOMI ENT ENT exam: Present normal exam, normal oropharynx and mucous membranes moist Neck Neck exam: Present normal inspection, full ROM and trachea midline Chest Chest inspection: Present normal inspection and symmetric chest wall rise Respiratory Respiratory exam: Present normal lung sounds bilaterally Cardiovascular Cardiovascular exam: Present regular rate, normal rhythm and normal heart sounds Abdominal Exam Abdominal exam: Present soft and normal bowel sounds Extremities Exam Extremities exam: Present normal inspection and full ROM Back Exam Back exam: Present normal inspection and full ROM Neurological Exam Neurological exam: Present alert, oriented X3 and CN II-XII intact Psychiatric Psychiatric exam: Present normal affect and normal mood Skin Skin exam: Present warm, dry, intact and normal color Course Course Course Narrative: No abdominal pain. 29-year-old who continues to smoke marijuana last was 24 hours ago coming in with intractable nausea and vomiting. Patient is not complaining of abdominal pain but states that she cannot tolerate liquids. She is dry heaving and sticking her fingers down her throat. Patient was given Zofran and IV fluids here and continues to vomit. Patient was seen 1 day ago for similar and was hypokalemic. Today we will replace potassium. Quality Measures none Orders Category Date Time Status Insert IV NOW Care 10/02/24 23:29 Active CBC Stat Lab 10/03/24 01:53 Completed CMP [Comprehensive Metabolic Panel] Stat Lab 10/03/24 01:53 Completed Famotidine Inj [Pepcid Inj] Med 10/02/24 23:26 Discontinued 20 mg IVP X1 ONE Lidocaine 2% Viscous [Xylocaine 2% Viscous] Med 10/03/24 00:45 Discontinued 15 ml PO X1 ONE Ondansetron Inj [Zofran Inj] Med 10/02/24 23:26 Discontinued 4 mg IVP X1 ONE Sodium Chloride 0.9% 1000 ml [Ns] 1,000 ml Med 10/03/24 01:37 Discontinued IV 999 mls/hr mg Hyd/Al Hyd/Yelena Susp [Maalox Susp] Med 10/03/24 00:45 Discontinued 30 ml PO X1 ONE Vital Signs Vital signs: Vital Signs Temperature 98.2 F 10/02/24 22:25 Pulse Rate 81 10/02/24 22:25 Respiratory Rate 18 10/02/24 22:25 Blood Pressure 139/83 H 10/02/24 22:25 Pulse Oximetry (%) 99 10/02/24 22:25 Oxygen Delivery Method Room Air 10/02/24 22: Nausea/Vomiting/Diarrhea MDM Narrative MDM Narrative:: Scribe Attestation: 10/02/24 - Natalya Negrete am scribing for and in the presence of Dr. Barnett. Patient data External records reviewed:: [facility] previous records (Per chart review, patient was seen here earlier today for hyperemesis gravidarum.) Clinical information provided by:: patient Social determinants that could affect healthcare access:: substance use (smokes marijuana) Patient has the following chronic illnesses:: HTN How is presenting disease/condition affected by chronic disease/condition?: uneffected by Evaluation data The following diagnostics were reviewed and interpreted by me:: lab results Lab and/or radiology exams considered but not ordered:: none Interpretation Summary: WBC 20.3, Potassium 3.3. Medications / Prescriptions Medications / Prescriptions considered but not ordered:: none Medication administrations:: Medication Administration History Discontinued Medications Al Hydrox/Mg Hydrox/Simethicone (Mg Hyd/Al Hyd/Yelena (Maalox Reg) Susp 30 Ml Udc) 30 ml PO X1 ONE Stop: 10/03/24 00:46 Last Admin: 10/03/24 00:54 Dose: 30 ml Documented By: BD Famotidine (Famotidine Inj 10 Mg/Ml Vial 2 Ml) 20 mg IVP X1 ONE Stop: 10/02/24 23:27 Last Admin: 10/03/24 00:04 Dose: 20 mg Documented By: BD Sodium Chloride (Ns) 1,000 mls @ 999 mls/hr IV .Q1H1M ONE Stop: 10/03/24 02:37 Last Infusion: 10/03/24 03:06 Dose: Infused Documented By: Admin: 10/03/24 02:05 Dose: 999 mls/hr Documented By: BD Lidocaine HCl (Lidocaine Viscous 2% 15 Ml Udc) 15 ml PO X1 ONE Stop: 10/03/24 00:46 Last Admin: 10/03/24 00:54 Dose: 15 ml Documented By: BD Ondansetron HCl (Ondansetron Inj 2 Mg/Ml Inj 2 Ml) 4 mg IVP X1 ONE; Protocol Stop: 10/02/24 23:27 Last Admin: 10/03/24 00:03 Dose: 4 mg Documented By: BD see above Consultations Consultation(s) initiated? (list below): Yes Consultation #1 (Physician, Specialty, Details): Discussed case with the resident physician, attending Dr. Medrano from Hospitalist service regarding admission. Discussed patients ED course, exam findings, labs, and radiology results. The Hospitalist agrees to accept the patient for admission. Time: 04:41 Diagnosis Nausea Differential Diagnosis: drug-induced nausea and vomiting, dehydration and other (vomiting in ) Most likely diagnosis given after review of the tests above:: see clinical impression below Admission Indicated Admission indicated?: not indicated Admission Request Was there a request for admission?: No Disposition Plan Disposition Plan: Discharge Discharge Attestation Discharge Attestation: The patient and all family members were given an opportunity to ask questions and understood the discharge instructions. Discharge instructions specifically effects, indications for sooner follow up or return to the emergency department, and the expected course of current diagnosis. Patient condition: Stable Discharge Plan Plan Patient Disposition: Admit Acute Care w/in Hospital Patient condition on transfer: Stable Prescriptions/Referrals Prescriptions/Med Rec: No Action labetalol 200 mg tablet 200 mg PO BID 30 Days Qty: 60 5RF promethazine 25 mg suppository 25 mg ME Q6H MDD 4 PRN (Reason: nausea and vomiting) Qty: 12 1RF Referrals: No Primary/Family,Physician [Primary Care Provider] - In 1 week Problem List Clinical Impression: Marijuana use, Cyclical vomiting, intractable Patient/Caregiver Discharge Instructions Diet Instructions: Stay hydrated with Gatorade and Pedialyte. Education Materials: Understanding Marijuana Abuse, ED Marijuana Abuse, ED Vomiting (Adult) Additional Instructions: Follow-up with your primary care provider in the next 2-3 days. It is important that you stop smoking marijuana. Eat crackers to help with your nausea. Print Language: Romanian Stand Alone Forms: Lynda Award Info., Patient Portal Info Letter
[2024-10-02 22:43] VITALS: PULSE 82; O2SAT 99
[2024-10-03] VITALS (19 sets, daily range): BP systolic 105–158; BP diastolic 62–91; PULSE 67–133; RESP 16–98; TEMP 36.3–36.9; O2SAT 76–100
[2024-10-03] MEDS: ONDANSETRON INJ 2 MG/ML INJ 2 ML 4 MG IVP ×4 (00:03→23:55)
[2024-10-03] MEDS: FAMOTIDINE INJ 10 MG/ML VIAL 2 ML 20 MG IVP (00:04)
[2024-10-03] MEDS: MG HYD/AL HYD/SIME (Maalox Reg) SUSP 30 ML UDC PO (00:54)
[2024-10-03] MEDS: LIDOCAINE VISCOUS 2% 15 ML UDC PO (00:54)
[2024-10-03] MEDS: SODIUM CHLORIDE 0.9% 1000 ML 1,000 ML 999 ML IV ×2 (02:05→05:14)
[2024-10-03 02:23] LABS: Basophils % (Auto) 0 % (0-2.5); Eosinophils % (Auto) 0 % (0-10); Hematocrit 38.1 % (36.0-46.0); Hemoglobin 13.5 g/dL (12.0-16.0); Immature Granulocytes % (Auto) 0 % (0-0); Immature Granulocytes Auto 0.08 Thou/mm3 (0.00-0.00); Lymphocytes # (Auto) 1.1 Thou/mm3 (1.0-4.8); Lymphocytes % (Auto) 5 % (10-50); Mean Corpuscular HGB Conc 35.4 g/dl (31.0-37.0); Mean Corpuscular Hemoglobin 27.1 pg (25.0-35.0); Mean Corpuscular Volume 77 fL (80-100); Monocytes # (Auto) 0.5 Thou/mm3 (0.0-0.8); Monocytes % (Auto) 2 % (0-12); Neutrophils # (Auto) 18.6 Thou/mm3 (1.8-7.7); Neutrophils % (Auto) 92 % (37-80); Nucleated Red Blood Cell % 0 /100 WBC (0); Platelet Count 294 Thou/mm3 (140-440); RDW Standard Deviation 36.6 fL (36.4-46.3); Red Blood Count 4.98 Miln/mm3 (4.00-5.20); White Blood Count 20.3 Thou/mm3 (3.6-11.0)
[2024-10-03 02:49] LABS: Alanine Aminotransferase 11 U/L (10-49); Albumin/Globulin Ratio 1.8 (1.2-2.2); Alkaline Phosphatase 68 U/L (46-116); Anion Gap 15 (7-16); Aspartate Amino Transferase 22 U/L (0-34); BUN/Creatinine Ratio 10 Ratio (12-20); Blood Urea Nitrogen 7 mg/dL (9-23); Calcium 9.1 mg/dL (8.3-10.6); Calcium (Corrected) 9.1 mg/dL (8.5-10.1); Carbon Dioxide 22.6 mMol/L (20.0-31.0); Chloride 104 mMol/L (98-107); Creatinine (Component) 0.7 mg/dL (0.6-1.3); Globulin 2.8 gm/dL (2.3-3.5); Glucose 152 mg/dL (74-106); Osmolality,Calculated 284 (275-295); Potassium 3.3 mMol/L (3.4-5.1); Sodium 142 mMol/L (136-145); Total Protein 7.8 gm/dL (5.7-8.2); eGFR > 60 See Note
--- NOTE | 2024-10-03 05:06 | PC.NURSE ---
PT HAD CHIPS AND DRINKS IN ROOM WHEN ADVISED NOT TO EAT PT WAS OBSERVED BY PROVIDER EATING CHIPS. SHE STATES CANT KEEP FOOD DOWN.
[2024-10-03] MEDS: POTASSIUM CHL 10 mEq IVPB 10 MEQ/100 ML BAG 100 MEQ IV (05:14)
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
--- NOTE | 2024-10-03 06:42 | PC.NURSE ---
NO BLOOD CULTURES NEEDED PER DR. LEMOS
[2024-10-03] MEDS: cefTRIAXone/D5w 1gm IV premix 1 GM/50 ML BAG IV (06:44)
[2024-10-03 06:47] LABS: Amphetamine/Methamp Scrn,U Negative (Negative); Barbiturate Screen,Urine Negative (Negative); Benzodiazepines Screen,Urine Negative (Negative); Benzoylecgonine Screen, Ur Negative (Negative); Fentanyl Screen,Urine Negative (Negative); Opiate Screen,Urine Negative (Negative); THC Screen,Urine Positive (Negative)
[2024-10-03] MEDS: PANTOPRAZOLE INJ 40 MG VIAL IVP (08:25)
[2024-10-03] MEDS: ENOXAPARIN SOD INJ 40 MG/0.4 ML SYRINGE SC (08:27)
[2024-10-03] MEDS: SENNA TABLET 1 TAB PO (08:27)
[2024-10-03 09:35] LABS: Magnesium 1.6 mg/dL (1.6-2.6)
[2024-10-03 11:00] LABS: Beta Hydroxybutyrate 1.8 mmol/L (<0.6)
--- NOTE | 2024-10-03 11:39 | PD.RESPRO ---
Documentation for date of: 10/03/24 Subjective Subjective Interval history: Overnight admission. Seen and examined at bedside initially in ED, patient continued to feel nauseous and actively having small episodes of clear-yellow/green emesis. States that at times it is bloody and also endorses some pain in her throat that radiates to her back. When she was brought up to the floor, she was noted to go straight to the shower/bathroom and remained there for some time. After speaking to her again, she did state she experienced N/V during her previous but was not this severe. Of note, she brought her medications and states that she stopped taking her lamotragine on her own. She is requesting to sleep at this time and will give a low dose of haloperidol, zofran changed to promethazine. Obtained magnesium that was normal and ketones mildly elevated at 1.8. Exam Vital Signs Temp Pulse Resp BP Pulse Ox O2 Del Method 98.3 F 74 20 120/62 99 Room Air 10/03/24 08:22 10/03/24 08:22 10/03/24 08:22 10/03/24 08:22 10/03/24 08:22 10/03/24 08:22 Narrative Exam General: AOx3, experiencing discomfort from nausea and vomiting, able to speak full sentences HEENT: NC/AT, mucous membranes moist, bilateral sclera anicteric Cardiovascular: regular rate and rhythm, S1/S2 present, no murmurs appreciated Pulmonary: clear to auscultation bilaterally, no rales/rhonchi/wheezes Abdominal: soft, non-tender, non-distended, no rebound/guarding, normal bowel sounds present Musculoskeletal: normal ROM, no peripheral edema Skin: warm and dry, intact, no rashes Neuro: CN II-XII intact, no focal deficits Objective Labs 10/04/24 05:44 10/04/24 14:05 Labs: Laboratory Results - last 24 hr 10/03/24 10/03/24 10/03/24 01:53 06:04 10:40 WBC 20.3 H D RBC 4.98 Hgb 13.5 Hct 38.1 MCV 77 L MCH 27.1 MCHC 35.4 RDW Std Deviation 36.6 Plt Count 294 Neut % (Auto) 92 H Lymph % (Auto) 5 L Villalba % (Auto) 2 Eos % (Auto) 0 Baso % (Auto) 0 Neut # (Auto) 18.6 H Lymph # (Auto) 1.1 Villalba # (Auto) 0.5 Eos # (Auto) 0.0 Baso # (Auto) 0.0 Immature Gran # (Auto) 0.08 H Absolute Nucleated RBC 0.00 Immature Gran % 0 Nucleated RBC % 0 Sodium 142 Potassium 3.3 L Chloride 104 Carbon Dioxide 22.6 Anion Gap 15 BUN 7 L Creatinine 0.7 Estim Creat Clear Calc 125.0 eGFR > 60 BUN/Creatinine Ratio 10 L Glucose 152 H D Calculated Osmolality 284 Calcium 9.1 Corrected Calcium 9.1 Magnesium 1.6 Total Bilirubin 1.0 AST 22 ALT 11 Alkaline Phosphatase 68 Total Protein 7.8 Albumin 5.0 D Globulin 2.8 Albumin/Globulin Ratio 1.8 Beta-Hydroxybutyrate/Acetoacetate 1.8 H Urine Opiates Screen Negative Urine Fentanyl Screen Negative Ur Barbiturates Screen Negative U Amphetamin/Meth Scrn Negative U Benzodiazepines Scrn Negative U Cocaine Metab Screen Negative U Marijuana (THC) Screen Positive A Quality Measures Quality Measures none Assessment & Plan Assessment Current Active Medications: Generic Name Dose Route Start Last Admin Trade Name Freq PRN Reason Stop Dose Admin Acetaminophen 650 mg 10/03/24 05:37 Acetaminophen 325 Mg Tablet PO 11/02/24 05:36 Q6H PRN Fever >100.3 or pain Al Hydrox/Mg Hydrox/Simethicone 30 ml 10/03/24 11:31 Mg Hyd/Al Hyd/Yelena (Maalox Reg) Susp 30 Ml Udc PO 11/02/24 11:30 Q4HR PRN UPSET STOMACH/INDIGESTION Enoxaparin Sodium 40 mg 10/03/24 09:00 10/03/24 08:27 Enoxaparin Sod Inj 40 Mg/0.4 Ml Syringe SC 10/17/24 08:59 40 mg QDAY MIYA Administration Ceftriaxone Sodium/Dextrose 1 gm in 50 mls @ 100 mls/hr 10/04/24 09:00 Rocephin/D5w 1gm Iv Premix IV 10/11/24 08:59 QDAY MIYA Dextrose/Sodium Chloride 1,000 mls @ 100 mls/hr 10/03/24 08:29 D5-1/2ns IV 11/02/24 08:28 .Q10H MIYA Promethazine HCl 12.5 mg/ 50.5 mls @ 2.5 mls/min 10/03/24 08:30 Sodium Chloride IV 11/02/24 08:29 Q6HR PRN NAUSEA OR VOMITING Protocol Ondansetron HCl 4 mg 10/03/24 05:37 Ondansetron Inj 2 Mg/Ml Inj 2 Ml IVP 11/02/24 05:36 Q6H PRN NAUSEA OR VOMITING Protocol Pantoprazole Sodium 40 mg 10/03/24 09:00 10/03/24 08:25 Pantoprazole Inj 40 Mg Vial IVP 11/02/24 08:59 40 mg QDAY MIYA Administration Pyridoxine HCl 25 mg 10/03/24 14:00 Pyridoxine 50 Mg Tablet PO 11/02/24 13:59 TID MIYA Sennosides 1 tab 10/03/24 05:37 10/03/24 08:27 Senna Tablet PO 11/02/24 05:36 1 tab QDAY PRN Administration constipation Protocol Simethicone 80 mg 10/03/24 11:30 Simethicone 80 Mg Chew PO 11/02/24 11:29 QID PRN GAS Plan Saima Yarbrough is a 29-year-old female with a past medical history of gestational diabetes, smoking, marijuana use, hypertension, PTSD, and bipolar disorder who presents with intractable nausea and vomiting x4 days. She was discharged from the ED earlier in the night, however returned immediately due to the vomiting. Patient is 10 weeks , this being her second . Admitted for intractable nausea and vomiting. #Intractable nausea and vomiting Presenting with symptoms starting 4 days ago, unable to tolerate solid foods or liquids. Emesis noted to be bloody at times but hemoglobin stable with pain in her throat that also radiates to her back. Also endorses abdominal pain but no significant change in bowel habits. ? Advance diet slowly ? Promethazine for nausea ? Simethicone ? Pyridoxine 25 mg p.o. TID ? Avoid teratogenic medications #GERD #Sore throat ? Pantoprazole 40 mg IV daily ? Maalox 30 mL p.o. q4h PRN #UTI #Leukocytosis UA positive for leukocyte esterase, WBC 17, endorses urinary frequency. Patient does have history of frequent UTIs. ? Urine culture pending ? IV ceftriaxone 1 g daily #History of hypertension Patient was previously taking metoprolol however since start of she was switched to labetalol. ? Resume labetalol 200 mg BID #History of PTSD #History of anxiety #History of bipolar disorder Patient was started on lamotrigine for about psych disorders but patient states that she has stopped taking it herself. Currently not on any management. ? Haloperidol 2.5 mg x1 #Tobacco use #THC use ? Counselled patient Hospital management: Disposition: intractable nausea and vomiting Fluids: D5/NS at 100 cc/hr Diet: clear liquid Lines: PIV DVT prophylaxis: enoxaparin 40 sc daily GI prophylaxis: pantoprazole 40 mg IV daily CODE STATUS: full code ----- Plan discussed with attending physician Dr. Levi Arellano MD PGY-1 Internal Medicine Attending Provider Attestation/Addendum I attest that I was physically present for the evaluation, physical examination, lab and imaging review of the patient with the residents. I discussed the case with the residents and agree with the findings and plans of care as documented above. Quincy Sims MD
[2024-10-03] MEDS: DEXTROSE 5%-0.45% NS 1,000 ML 100 ML IV (11:50)
[2024-10-03] MEDS: HALOPERIDOL LACT INJ 5 MG/ML VIAL 2.5 MG IV (11:50)
[2024-10-03 12:02] LABS: Beta HCG,Quantitative 120062 mIU/mL (<5.0)
[2024-10-03] MEDS: RINGERS LACTATED 1000 ML 500 ML 999 ML IV (16:07)
[2024-10-03] MEDS: HALOPERIDOL LACT INJ 5 MG/ML VIAL 2 MG IV (21:08)
[2024-10-03] MEDS: SIMETHICONE 80 MG CHEW PO (21:40)
[2024-10-03] MEDS: LIDOCAINE 5% 1 PATCH TOP (22:20)
[2024-10-04] VITALS (9 sets, daily range): BP systolic 125–160; BP diastolic 75–109; PULSE 74–93; RESP 17–99; TEMP 36–37; O2SAT 97–100
[2024-10-04] MEDS: PROMETHAZINE INJ 12.5 MG in SODIUM CHLORIDE 0.9% 50 ML 2.5 MG IV (01:35)
[2024-10-04] MEDS: SIMETHICONE 80 MG CHEW PO (03:51)
[2024-10-04 06:08] LABS: Basophils % (Auto) 0 % (0-2.5); Eosinophils % (Auto) 0 % (0-10); Hematocrit 32.2 % (36.0-46.0); Hemoglobin 11.1 g/dL (12.0-16.0); Immature Granulocytes % (Auto) 1 % (0-0); Immature Granulocytes Auto 0.11 Thou/mm3 (0.00-0.00); Lymphocytes # (Auto) 2.5 Thou/mm3 (1.0-4.8); Lymphocytes % (Auto) 18 % (10-50); Mean Corpuscular HGB Conc 34.5 g/dl (31.0-37.0); Mean Corpuscular Hemoglobin 26.9 pg (25.0-35.0); Mean Corpuscular Volume 78 fL (80-100); Monocytes # (Auto) 0.9 Thou/mm3 (0.0-0.8); Monocytes % (Auto) 6 % (0-12); Neutrophils # (Auto) 10.6 Thou/mm3 (1.8-7.7); Neutrophils % (Auto) 75 % (37-80); Nucleated Red Blood Cell % 0 /100 WBC (0); Platelet Count 300 Thou/mm3 (140-440); RDW Standard Deviation 37.4 fL (36.4-46.3); Red Blood Count 4.13 Miln/mm3 (4.00-5.20); White Blood Count 14.1 Thou/mm3 (3.6-11.0)
[2024-10-04 06:53] LABS: Alanine Aminotransferase 9 U/L (10-49); Albumin/Globulin Ratio 1.7 (1.2-2.2); Alkaline Phosphatase 53 U/L (46-116); Anion Gap 15 (7-16); Aspartate Amino Transferase 17 U/L (0-34); BUN/Creatinine Ratio 10 Ratio (12-20); Bilirubin,Total 0.9 mg/dL (0.3-1.2); Blood Urea Nitrogen < 5 mg/dL (9-23); Calcium 8.5 mg/dL (8.3-10.6); Calcium (Corrected) 8.5 mg/dL (8.5-10.1); Carbon Dioxide 21.9 mMol/L (20.0-31.0); Chloride 101 mMol/L (98-107); Creatinine (Component) 0.5 mg/dL (0.6-1.3); Globulin 2.4 gm/dL (2.3-3.5); Glucose 121 mg/dL (74-106); Magnesium 1.6 mg/dL (1.6-2.6); Osmolality,Calculated 273 (275-295); Phosphorous 2.6 mg/dL (2.4-5.1); Sodium 138 mMol/L (136-145); Thyroid Stimulating Hormone 0.14 uIU/mL (0.55-4.78); Total Protein 6.4 gm/dL (5.7-8.2); eGFR > 60 See Note
[2024-10-04 06:56] LABS: Potassium 2.5 mMol/L (3.4-5.1)
[2024-10-04 07:38] LABS: Free T4 (Free Thyroxine) 1.46 ng/dL (0.89-1.76)
--- NOTE | 2024-10-04 07:42 | PC.NURSE ---
RN entered patient room to administer medication, patient found to be sitting on shower floor with water running, RN requested patient exit shower for medication administration.
[2024-10-04] MEDS: POTASSIUM CHLORIDE 10% 20 MEQ/15 ML UDC 40 MEQ PO (07:45)
[2024-10-04] MEDS: POT PHOS 15 mMol in NS 250 ML 15 MMOL/250 ML BAG 62.5 MMOL IV ×2 (07:53→13:51)
[2024-10-04] MEDS: ENOXAPARIN SOD INJ 40 MG/0.4 ML SYRINGE SC (08:14)
[2024-10-04] MEDS: cefTRIAXone/D5w 1gm IV premix 1 GM/50 ML BAG IV (08:15)
[2024-10-04] MEDS: PANTOPRAZOLE INJ 40 MG VIAL IVP (08:15)
--- NOTE | 2024-10-04 10:09 | ESPR_ITS ---
Documentation for date of: 10/04/24 Subjective Subjective Interval history: No acute overnight events. Seen and examined at bedside and continues to feel nauseous with episodes of emesis. Noted by nursing staff that she will spend significant amount of time in restroom and has been witnessed to induce vomiting as she feels like she needs to get something out . Also endorses some substernal chest discomfort described as burning and pressure and would like something to help her sleep. Will change promethazine to benadryl plus scopolamine patch to see how patient responds, as benadryl may help her rest. Maalox also added to see if alleviates patient's discomfort. Exam Vital Signs Temp Pulse Resp BP Pulse Ox O2 Del Method 96.8 F 83 17 146/76 H 99 Room Air 10/04/24 07:56 10/04/24 07:56 10/04/24 07:56 10/04/24 07:56 10/04/24 07:56 10/04/24 07:56 Narrative Exam General: AOx3, experiencing discomfort from nausea and vomiting, able to speak full sentences HEENT: NC/AT, mucous membranes moist, bilateral sclera anicteric Cardiovascular: regular rate and rhythm, S1/S2 present, no murmurs appreciated Pulmonary: clear to auscultation bilaterally, no rales/rhonchi/wheezes Abdominal: soft, non-tender, non-distended, no rebound/guarding, normal bowel sounds present Musculoskeletal: normal ROM, no peripheral edema Skin: warm and dry, intact, no rashes Neuro: CN II-XII intact, no focal deficits Objective Labs 10/04/24 05:44 10/04/24 14:05 Labs: Laboratory Results - last 24 hr 10/03/24 10/04/24 10:40 05:44 WBC 14.1 H D RBC 4.13 Hgb 11.1 L D Hct 32.2 L MCV 78 L MCH 26.9 MCHC 34.5 RDW Std Deviation 37.4 Plt Count 300 Neut % (Auto) 75 Lymph % (Auto) 18 Snyder % (Auto) 6 Eos % (Auto) 0 Baso % (Auto) 0 Neut # (Auto) 10.6 H Lymph # (Auto) 2.5 Snyder # (Auto) 0.9 H Eos # (Auto) 0.0 Baso # (Auto) 0.0 Immature Gran # (Auto) 0.11 H Absolute Nucleated RBC 0.00 Immature Gran % 1 H Nucleated RBC % 0 Sodium 138 Potassium 2.5 L* D Chloride 101 Carbon Dioxide 21.9 Anion Gap 15 BUN < 5 L Creatinine 0.5 L Estim Creat Clear Calc 175.0 eGFR > 60 BUN/Creatinine Ratio 10 L Glucose 121 H Calculated Osmolality 273 L Calcium 8.5 Corrected Calcium 8.5 Phosphorus 2.6 Magnesium 1.6 Total Bilirubin 0.9 AST 17 ALT 9 L Alkaline Phosphatase 53 D Total Protein 6.4 Albumin 4.0 D Globulin 2.4 Albumin/Globulin Ratio 1.7 Beta-Hydroxybutyrate/Acetoacetate 1.8 H TSH 0.14 L Free T4 1.46 Beta HCG, Quant [id number] Quality Measures Quality Measures none Assessment & Plan Assessment Current Active Medications: Generic Name Dose Route Start Last Admin Trade Name Freq PRN Reason Stop Dose Admin Acetaminophen 650 mg 10/03/24 05:37 Acetaminophen 325 Mg Tablet PO 11/02/24 05:36 Q6H PRN Fever >100.3 or pain Capsaicin 0 gm 10/03/24 22:00 10/04/24 05:34 Capsaicin Cr 60 Gm Tube TOP 11/02/24 21:59 Not Given TID MIYA Diphenhydramine HCl 25 mg 10/04/24 10:03 Diphenhydramine 25 Mg Capsule PO 11/03/24 10:02 Q8H PRN NAUSEA OR VOMITING Protocol Enoxaparin Sodium 40 mg 10/03/24 09:00 10/04/24 08:14 Enoxaparin Sod Inj 40 Mg/0.4 Ml Syringe SC 10/17/24 08:59 40 mg QDAY MIYA Administration Ceftriaxone Sodium/Dextrose 1 gm in 50 mls @ 100 mls/hr 10/04/24 09:00 10/04/24 08:15 Rocephin/D5w 1gm Iv Premix IV 10/11/24 08:59 100 mls/hr QDAY MIYA Administration Promethazine HCl 12.5 mg/ 50.5 mls @ 2.5 mls/min 10/03/24 08:30 10/04/24 01:35 Sodium Chloride IV 11/02/24 08:29 2.5 mls/min Q6HR PRN Administration NAUSEA OR VOMITING Protocol Potassium Phosphate 15 mmol in 250 mls @ 62.5 mls/hr 10/04/24 07:16 10/04/24 07:53 Pot Phos 15 Mmol In Ns 250 Ml IV 10/04/24 15:15 62.5 mls/hr Q4H MIYA Administration Ondansetron HCl 4 mg 10/03/24 05:37 10/03/24 23:55 Ondansetron Inj 2 Mg/Ml Inj 2 Ml IVP 11/02/24 05:36 4 mg Q6H PRN Administration NAUSEA OR VOMITING Protocol Pantoprazole Sodium 40 mg 10/03/24 09:00 10/04/24 08:15 Pantoprazole Inj 40 Mg Vial IVP 11/02/24 08:59 40 mg QDAY MIYA Administration Pyridoxine HCl 25 mg 10/03/24 14:00 10/04/24 05:34 Pyridoxine 50 Mg Tablet PO 11/02/24 13:59 Not Given TID MIYA Sennosides 1 tab 10/03/24 05:37 10/03/24 08:27 Senna Tablet PO 11/02/24 05:36 1 tab QDAY PRN Administration constipation Protocol Simethicone 80 mg 10/03/24 11:30 10/04/24 03:51 Simethicone 80 Mg Chew PO 11/02/24 11:29 80 mg QID PRN Administration GAS Plan Saima Yarbrough is a 29-year-old female with a past medical history of gestational diabetes, smoking, marijuana use, hypertension, PTSD, and bipolar disorder who presents with intractable nausea and vomiting x4 days. She was discharged from the ED earlier in the night, however returned immediately due to the vomiting. Patient is 10 weeks , this being her second . Admitted for intractable nausea and vomiting. #Intractable nausea and vomiting #Cyclic vomiting syndrome vs hyperemesis gravidarum vs cannibis hyperemesis syndrome Presenting with symptoms starting 4 days ago, unable to tolerate solid foods or liquids. Emesis noted to be bloody at times but hemoglobin stable with pain in her throat that also radiates to her back. Also endorses abdominal pain but no significant change in bowel habits. Previously tried zofran and promethazime with minimal improvement (noted to take promethazine at home). Also tried simethicone and will now try Maalox. ? Advance diet slowly ? Scopolamine patch and benadryl 25 mg TID prn ? Pyridoxine 25 mg p.o. TID ? Avoid teratogenic medications #GERD #Sore throat ? Pantoprazole 40 mg IV daily ? Maalox 30 mL p.o. q4h PRN #UTI #Leukocytosis UA positive for leukocyte esterase, WBC 17, endorses urinary frequency. Patient does have history of frequent UTIs. ? Urine culture pending ? IV ceftriaxone 1 g daily #History of hypertension Patient was previously taking metoprolol however since start of she was switched to labetalol. ? Resume labetalol 200 mg BID #History of PTSD #History of anxiety #History of bipolar disorder Patient was started on lamotrigine for about psych disorders but patient states that she has stopped taking it herself. Currently not on any management. #Tobacco use #THC use ? Counselled patient Hospital management: Disposition: intractable nausea and vomiting Diet: clear liquid Lines: PIV DVT prophylaxis: enoxaparin 40 sc daily GI prophylaxis: pantoprazole 40 mg IV daily CODE STATUS: full code ----- Plan discussed with attending physician Dr. Levi Arellano MD PGY-1 Internal Medicine Attending Provider Attestation/Addendum I attest that I was physically present for the evaluation, physical examination, lab and imaging review of the patient with the residents. I discussed the case with the residents and agree with the findings and plans of care as documented above. Patient continues to have nausea and vomiting despite ondansetron and all doses of haloperidol last night. She has been refusing to take pyridoxine due to intolerance. We will continue with simethicone, PPI. Tried diphenhydramine this morning and scopolamine, provided 1 L partial relief. Patient stated she was taking promethazine previously with had provided help, we will switch from diphenhydramine to promethazine along with as needed haloperidol. EKG was obtained, QTc within normal limits, we will keep a close eye on her QT C. Beta- hydroxybutyrate yesterday was 1.8, beta-hCG within normal limits for age of , patient does not have an anion gap currently. Noted to have potassium of 2.5 this morning, likely secondary to vomiting, continues to be on IV hydration, we will also monitor her electrolytes closely and replete as needed. Quincy Sims MD
[2024-10-04] MEDS: MG HYD/AL HYD/SIME (Maalox Reg) SUSP 30 ML UDC PO (10:20)
[2024-10-04] MEDS: SCOPOLAMINE 1 MG TDSY TOP (10:20)
[2024-10-04] MEDS: DiphenhydrAMINE 25 MG CAPSULE PO (10:20)
--- NOTE | 2024-10-04 11:27 | PC.NURSE ---
MD at bedside patient repeatedly requesting to be disconnected from IV to sit in shower. Patient education on the importance of on time administration of IV medication. MD ok brief pause in IV infusion to allow patient to relax in shower.
[2024-10-04] MEDS: DiphenhydrAMINE INJ 50 MG/ML VIAL 25 MG IVP (12:15)
--- NOTE | 2024-10-04 12:55 | PC.NURSE ---
Patient refusing to leave shower for the administration of second bag of Potassium Phosphates. made aware.
[2024-10-04 15:08] LABS: Albumin, Serum 4.3 gm/dL (3.5-5.0); Anion Gap 11 (7-16); BUN/Creatinine Ratio 8 Ratio (12-20); Blood Urea Nitrogen < 5 mg/dL (9-23); Calcium 8.5 mg/dL (8.3-10.6); Calcium (Corrected) 8.5 mg/dL (8.5-10.1); Carbon Dioxide 25.9 mMol/L (20.0-31.0); Chloride 100 mMol/L (98-107); Creatinine (Component) 0.6 mg/dL (0.6-1.3); Estimated Creatinine Clearance 145.9 mL/min (>60); Glucose 139 mg/dL (74-106); Osmolality,Calculated 273 (275-295); Phosphorous 2.5 mg/dL (2.4-5.1); Sodium 137 mMol/L (136-145); eGFR > 60 See Note
[2024-10-04 15:09] LABS: Potassium 2.5 mMol/L (3.4-5.1)
--- NOTE | 2024-10-04 15:31 | EKG_ITS ---
[facility] Test Date: 2024-10-04 Pat Name: MASSIEL RAMÍREZ Department: Room: 64A Gender: Female Web Developer: JYOTI : 1995 Requested By: Aneudy Arellano Order Number: [id number] Reading MD: Aneudy Arellano Measurements Intervals [place] Rate: 89 P: 40 NH: 155 QRS: 21 QRSD: 95 T: 10 QT: 360 QTc: 438 Interpretive Statements SINUS RHYTHM MINIMAL VOLTAGE CRITERIA FOR LVH, CONSIDER NORMAL VARIANT NONSPECIFIC T-WAVE ABNORMALITY Compared to ECG 02/17/2019 11:23:37 T-wave abnormality now present Ectopic atrial rhythm no longer present Right-axis deviation no longer present /store/S0/[id number].pdf
[2024-10-04] MEDS: LACTULOSE SYRUP 20 GM/30 ML UDC PO ×2 (15:49→20:26)
[2024-10-04] MEDS: POTASSIUM CHLORIDE 20 mEq TABCR 40 MEQ PO (15:49)
[2024-10-04] MEDS: PROMETHAZINE INJ 25 MG in SODIUM CHLORIDE 0.9% 50 ML IV ×2 (17:15→23:19)
--- NOTE | 2024-10-04 18:25 | PC.NURSE ---
Nurse found patient in in-room bathroom with IV pump paused and attempting to disconnect IV tubing from IV catheter, patient states she wants to shower again. Patient educated on the importance of not tampering with IV and importance of allowing IV medications to infuse uninterrupted. Patient verbalized understanding and was escorted back to bed and IV infusion was restarted.
[2024-10-04] MEDS: BENZOCAINE 20% (Hurricaine) SPRAY 1 DOSE TOP (20:26)
--- NOTE | 2024-10-04 20:53 | PC.NURSE ---
Patient requested if nurse could unhook her from the iv machine so she can have a shower. Patient also was witnessed pressing the restart button when the machine button. Was educated by nurse to not press the restart button of the iv machine and the importance of the medication she is receiving through the IV.
[2024-10-04] MEDS: HALOPERIDOL LACT INJ 5 MG/ML VIAL 2.5 MG IV (21:14)
--- NOTE | 2024-10-04 21:35 | PC.NURSE ---
Notified Dr. Jennings that patient would contantly take out her iv line herself so that she could go to the shower. Patient has been taking multiple showers throughout the night. made aware.
[2024-10-04] MEDS: PYRIDOXINE 50 MG TABLET 25 MG PO (23:50)
[2024-10-04] MEDS: CAPSAICIN CR 60 GM TUBE TOP (23:50)
[2024-10-05] VITALS (8 sets, daily range): BP systolic 128–161; BP diastolic 64–102; PULSE 78–114; RESP 16–98; TEMP 36.1–36.6; O2SAT 97–100
[2024-10-05] MEDS: SIMETHICONE 80 MG CHEW PO ×3 (01:38→21:29)
[2024-10-05] MEDS: DiphenhydrAMINE 25 MG CAPSULE PO (02:23)
[2024-10-05] MEDS: MG HYD/AL HYD/SIME (Maalox Reg) SUSP 30 ML UDC PO ×2 (02:23→08:38)
[2024-10-05] MEDS: bisacodyL 10 MG SUPP PR (02:23)
[2024-10-05] MEDS: POLYETHYLENE GLYCOL 17 GM PACKET PO (02:27)
--- NOTE | 2024-10-05 02:38 | PC.NURSE ---
Patient came out to the nurses station to tell nurse that she had an allergic reaction to the ointment (capcasin) that was applied to her abdomen. Before patient came out to the nurses station the patient took a shower to remove the ointment. Nurse contacted . Dr. Grover and notified MD regarding patient's chief complaint. When MD arrived patient told that her abdomen was red but is not anymore but she felt itchy when the ointment was applied. The patient also mentioned to nurse that she has not have that much bowel movement and if she could have something to help her go. Dr. Grover ordered Ducolax suppository and miralax to help her go put along with Maalox for her stomach. Nurse asked help from Sharon [address] to insert the suppository. After a few minutes patient's pressed the call light and notified the nurse that her rectum is burning after the suppository was inserted. The patient also mentioned to nurse that she has been having a lot of bowel movement and she had an accident. Patient recently told MD that she has not been having that much bowel movement and wanted medication to help her go. Patient then wanted to take a shower to which the nurse remind and educated patient that we have to keep the heart monitor on you to monitor your heart. Contacted and spoke to Dr. Jennings regarding patient's request of wanting to take a shower. Per MD, the patient can have a shower. Patient has been having multiple showers through out the night and patient mentioned to nurse that she takes showers to help with her stomach. Nurse contacted [employer] to notify her that the patient is going to have a shower. Patient has been constantly educated about the importance of keeping the heart monitor on. MD aware and charge nurse is aware regarding situation.
[2024-10-05] MEDS: PYRIDOXINE 50 MG TABLET 25 MG PO ×2 (05:33→21:29)
[2024-10-05 05:57] LABS: Basophils % (Auto) 0 % (0-2.5); Eosinophils % (Auto) 0 % (0-10); Hematocrit 31.5 % (36.0-46.0); Hemoglobin 11.3 g/dL (12.0-16.0); Immature Granulocytes % (Auto) 1 % (0-0); Immature Granulocytes Auto 0.09 Thou/mm3 (0.00-0.00); Lymphocytes # (Auto) 2.8 Thou/mm3 (1.0-4.8); Lymphocytes % (Auto) 23 % (10-50); Mean Corpuscular HGB Conc 35.9 g/dl (31.0-37.0); Mean Corpuscular Hemoglobin 27.2 pg (25.0-35.0); Mean Corpuscular Volume 76 fL (80-100); Monocytes # (Auto) 0.9 Thou/mm3 (0.0-0.8); Monocytes % (Auto) 8 % (0-12); Neutrophils # (Auto) 8.3 Thou/mm3 (1.8-7.7); Neutrophils % (Auto) 68 % (37-80); Nucleated Red Blood Cell % 0 /100 WBC (0); Platelet Count 258 Thou/mm3 (140-440); RDW Standard Deviation 35.2 fL (36.4-46.3); Red Blood Count 4.15 Miln/mm3 (4.00-5.20); White Blood Count 12.1 Thou/mm3 (3.6-11.0)
[2024-10-05 06:40] LABS: Alanine Aminotransferase 15 U/L (10-49); Albumin/Globulin Ratio 1.8 (1.2-2.2); Alkaline Phosphatase 50 U/L (46-116); Anion Gap 13 (7-16); Aspartate Amino Transferase 19 U/L (0-34); BUN/Creatinine Ratio 10 Ratio (12-20); Bilirubin,Total 0.7 mg/dL (0.3-1.2); Blood Urea Nitrogen < 5 mg/dL (9-23); Calcium 8.6 mg/dL (8.3-10.6); Calcium (Corrected) 8.6 mg/dL (8.5-10.1); Carbon Dioxide 27.5 mMol/L (20.0-31.0); Chloride 101 mMol/L (98-107); Creatinine (Component) 0.5 mg/dL (0.6-1.3); Globulin 2.2 gm/dL (2.3-3.5); Glucose 115 mg/dL (74-106); Osmolality,Calculated 279 (275-295); Sodium 141 mMol/L (136-145); Total Protein 6.2 gm/dL (5.7-8.2); eGFR > 60 See Note
[2024-10-05 07:23] LABS: Potassium 2.6 mMol/L (3.4-5.1)
--- NOTE | 2024-10-05 07:30 | PC.NURSE ---
Dr. Arellano made aware patient refused irrigator gravity flow, K 2.6, orders received, read back, and carried out.
[2024-10-05] MEDS: PROMETHAZINE INJ 25 MG in SODIUM CHLORIDE 0.9% 50 ML IV (08:14)
[2024-10-05] MEDS: POTASSIUM CHLORIDE 10% 20 MEQ/15 ML UDC 40 MEQ PO (08:15)
[2024-10-05] MEDS: PANTOPRAZOLE INJ 40 MG VIAL IVP (08:15)
--- NOTE | 2024-10-05 08:29 | EKG_ITS ---
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
[2024-10-05] MEDS: HALOPERIDOL LACT INJ 5 MG/ML VIAL 2.5 MG IV ×2 (08:32→15:57)
[2024-10-05] MEDS: POT PHOS 15 mMol in NS 250 ML 15 MMOL/250 ML BAG 62.5 MMOL IV (08:38)
[2024-10-05 08:41] LABS: Magnesium 1.8 mg/dL (1.6-2.6); Phosphorous 3.1 mg/dL (2.4-5.1)
[2024-10-05] MEDS: ENOXAPARIN SOD INJ 40 MG/0.4 ML SYRINGE SC (09:00)
[2024-10-05] MEDS: Magnesium Sulfate 4 GM Ivpb 4 GM/50 ML BAG IV (09:05)
[2024-10-05] MEDS: POTASSIUM CHLORIDE 20 mEq TABCR 40 MEQ PO (09:20)
[2024-10-05] MEDS: MELATONIN 3 MG TABLET 6 MG PO (09:20)
[2024-10-05 09:25] LABS: Troponin I < 0.020 ng/mL (0.0-0.045)
--- NOTE | 2024-10-05 10:00 | ESCONSULT_ITS ---
[employer] HPI Data of Consult Consult date: 10/05/24 Requesting Physician: Cale Medrano MD Primary Care Provider: Physician No Primary/Family Consult Narrative Reason for consult: early complication (Intractable Nausea and Vomiting refractory to Zofran, Promethazine, Scopolamine, Benadryl, and Peridoxine. ) History of present illness: 29 y/o with IUP 11w2d with confirmed EDC of 04/24/2025 who was admitted on 10/03 for failed outpatient management of nausea and vomiting in with electrolyte imbalance and weight loss. No history of hyperemesis in a prior . 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 ) Meds Home Medications and Allergies Allergies Allergy/AdvReac Type Severity Reaction Status Date / Time clavulanic acid (From Allergy Severe burning Verified 10/02/24 22:43 Augmentin) sensation amoxicillin (From Augmentin) AdvReac Severe burning Verified 10/02/24 22:43 sensation ibuprofen AdvReac Severe DUE TO Verified 10/02/24 22:43 KIDNEYS Exam - [employer] Vital Signs Temp Pulse Resp BP Pulse Ox O2 Del Method 97.2 F 78 18 151/86 H 99 Room Air 10/05/24 08:00 10/05/24 08:22 10/05/24 08:22 10/05/24 08:00 10/05/24 08:00 10/05/24 08:00 Routine HEENT Exam Comments: Routine Respiratory Exam Comments: CTA B/L Routine Cardiovascular Exam Comments: RRR Routine Abdominal Exam Comments: Nontender, nondistended, no guarding, rebound or rigidity Routine Extremities Exam Comments: Nontender or edema. Routine Skin Exam Comments: No gross rashes or lesions. Detailed Neurological Exam Comments: No focal deficit [employer] - Results Labs 10/05/24 05:25 10/05/24 05:25 Labs: Short CBC 10/05/24 Range/Units 05: WBC 12.1 H (3.6-11.0) Thou/mm3 Hgb 11.3 L (12.0-16.0) g/dL Hct 31.5 L (36.0-46.0) % Plt Count 258 D (140-440) Thou/mm3 BMP 10/04/24 10/05/24 14:05 05:25 Sodium 137 141 Potassium 2.5 L* 2.6 L* Chloride 100 101 Carbon Dioxide 25.9 27.5 BUN < 5 L < 5 L Creatinine 0.6 0.5 L Glucose 139 H 115 H Calcium 8.5 8.6 Cardiac Enzymes 10/05/24 Range/Units 08:50 Troponin I < 0.020 (0.0-0.045) ng/mL Liver Function 10/04/24 10/05/24 Range/Units 14:05 05:25 Total Bilirubin 0.7 (0.3-1.2) mg/dL AST 19 (0-34) U/L ALT 15 (10-49) U/L Alkaline Phosphatase 50 (46-116) U/L Albumin 4.3 4.0 (3.5-5.0) gm/dL Impressions Impression: Hyperemesis Gravidarum at 11w2d with ongoing intractable nausea,vomiting electrolyte disturbance and weight loss refractory to Zofran, Promethazine, Scopolamine, Benadryl, and Peridoxine. Continue current antiemetics. Add Reglan 10mg IV q6h scheduled pre-meal and at bedtime (Note: this is not a prn medication) Begin Methlyprednisolone 16mg IV scheduled q8h for 3 days total then followed by 2 weeks taper orally (Tapered dosing: Prednisone 40mg po x one day then 20mg po daily x 3 days then 10mg po daily x 3 days then 5 mg po daily for 5 days. Informed consent obtained in layman's terms the patient was made aware of the risks, complications, alternatives and benefits of the use of Reglan and Methylprenisolone in controlling her nausea and vomiting. Patient verbalized understanding. I explained that some studies show a slightly increased risk of cleft lip with or without cleft palate when corticosteroids are used in the first trimester. The risk may increase from 1 in 1000 to 3-5 per 1000 infants. The placenta metabolizes corticosteroids which may reduce exposure with drugs like methylprednisolone. She was made aware that treatment with Reglan can cause tardive dyskinesia a potentially irreversible and disfiguring disorder characterized by involuntary movements of the face, tongue or extremities. However short term use lowers this risk.
--- NOTE | 2024-10-05 10:14 | PD.RESPRO ---
Documentation for date of: 10/05/24 Subjective Subjective Interval history: No acute overnight events. However, patient continues to spend long periods of time in the bathroom/shower as she states it helps with her symptoms. Rapid response was called this morning for chest discomfort and high blood pressure (160/64). Chest discomfort described as sharp and substernal that radiated to her back and improved with pressure on her chest; no shortness of breath, no radiation to her arms/neck. Other vital signs were stable as she was saturating well on room air and no fevers. EKG did not show any ST or T wave abnormalities and troponins negative. She was given Maalox and haloperidol 2.5 mg x1 as she endorsed experiencing significant anxiety and symptoms improved. Given trials of multiple different anti-emetic agents without significant improvement in symptoms in setting of being 10 weeks and history of PTSD/BD previously on lamotrigine, fireproof door assembler was consulted and will await further recommendations. Exam Vital Signs Temp Pulse Resp BP Pulse Ox O2 Del Method 97.2 F 78 18 151/86 H 99 Room Air 10/05/24 08:00 10/05/24 08:22 10/05/24 08:22 10/05/24 08:00 10/05/24 08:00 10/05/24 08:00 Narrative Exam General: AOx3, experiencing anxiety and discomfort from nausea and vomiting, able to speak full sentences HEENT: NC/AT, mucous membranes moist, bilateral sclera anicteric Cardiovascular: regular rate and rhythm, S1/S2 present, no murmurs appreciated Pulmonary: clear to auscultation bilaterally, no rales/rhonchi/wheezes Abdominal: soft, non-tender, non-distended, no rebound/guarding, normal bowel sounds present Musculoskeletal: normal ROM, no peripheral edema Skin: warm and dry, intact, no rashes Neuro: CN II-XII intact, no focal deficits Objective Labs 10/05/24 05:10/05/24 05:25 Labs: Laboratory Results - last 24 hr 10/04/24 10/05/24 10/05/24 14:05 : 08:50 WBC 12.1 H RBC 4.15 Hgb 11.3 L Hct 31.5 L MCV 76 L MCH 27.2 MCHC 35.9 RDW Std Deviation 35.2 L Plt Count 258 D Neut % (Auto) 68 Lymph % (Auto) 23 Lares % (Auto) 8 Eos % (Auto) 0 Baso % (Auto) 0 Neut # (Auto) 8.3 H Lymph # (Auto) 2.8 Lares # (Auto) 0.9 H Eos # (Auto) 0.0 Baso # (Auto) 0.0 Immature Gran # (Auto) 0.09 H Absolute Nucleated RBC 0.00 Immature Gran % 1 H Nucleated RBC % 0 Sodium 137 141 Potassium 2.5 L* 2.6 L* Chloride 100 101 Carbon Dioxide 25.9 27.5 Anion Gap 11 13 BUN < 5 L < 5 L Creatinine 0.6 0.5 L Estim Creat Clear Calc 145.9 175.0 eGFR > 60 > 60 BUN/Creatinine Ratio 8 L 10 L Glucose 139 H 115 H Calculated Osmolality 273 L 279 Calcium 8.5 8.6 Corrected Calcium 8.5 8.6 Phosphorus 2.5 3.1 Magnesium 1.8 Total Bilirubin 0.7 AST 19 ALT 15 Alkaline Phosphatase 50 Troponin I < 0.020 Total Protein 6.2 Albumin 4.3 4.0 Globulin 2.2 L Albumin/Globulin Ratio 1.8 Quality Measures Quality Measures none Assessment & Plan Assessment Current Active Medications: Generic Name Dose Route Start Last Admin Trade Name Freq PRN Reason Stop Dose Admin Acetaminophen 650 mg 10/03/24 05:37 Acetaminophen 325 Mg Tablet PO 11/02/24 05:36 Q6H PRN Fever >100.3 or pain Capsaicin 0 gm 10/03/24 22:00 10/05/24 05:37 Capsaicin Cr 60 Gm Tube TOP 11/02/24 21:59 Not Given TID MIYA Enoxaparin Sodium 40 mg 10/03/24 09:00 10/05/24 09:00 Enoxaparin Sod Inj 40 Mg/0.4 Ml Syringe SC 10/17/24 08:59 40 mg QDAY MIYA Administration Haloperidol Lactate 2.5 mg 10/04/24 15:31 10/05/24 08:32 Haloperidol Lact Inj 5 Mg/Ml Vial IV 10/09/24 15:30 2.5 mg Q8HR PRN Administration AGITATION (SEVERE) Ceftriaxone Sodium/Dextrose 1 gm in 50 mls @ 100 mls/hr 10/04/24 09:00 10/04/24 08:45 Rocephin/D5w 1gm Iv Premix IV 10/11/24 08:59 Infused QDAY MIYA Infusion Promethazine HCl 12.5 mg/ 50.5 mls @ 2.5 mls/min 10/03/24 08:30 10/04/24 01:35 Sodium Chloride IV 11/02/24 08:29 2.5 mls/min Q6HR PRN Administration NAUSEA OR VOMITING Protocol Promethazine HCl 25 mg/ Sodium 51 mls @ 2.5 mls/min 10/04/24 16:15 10/05/24 08:14 Chloride IV 11/03/24 16:14 2.5 mls/min Q8H MIYA Administration Potassium Phosphate 15 mmol in 250 mls @ 62.5 mls/hr 10/05/24 07:39 10/05/24 08:38 Pot Phos 15 Mmol In Ns 250 Ml IV 10/05/24 15:38 62.5 mls/hr Q4H MIYA Administration Magnesium Sulfate 4 gm in 50 mls @ 12.5 mls/hr 10/05/24 08:24 10/05/24 09:05 Magnesium Sulfate Ivpb IV 10/05/24 12:23 12.5 mls/hr X1 ONE Administration Lactulose 20 gm 10/04/24 17:00 10/04/24 20:26 Lactulose Syrup 20 Gm/30 Ml Udc PO 11/03/24 16:59 20 gm QID MIYA Administration Protocol Magnesium Hydroxide 30 ml 10/04/24 11:56 Milk Of Magnesia Susp 30 Ml Udc PO 11/03/24 11:55 X1 PRN Constipation Protocol Methylprednisolone Sodium Succinate 16 mg 10/05/24 09:15 Methylprednisolone Sod Succ 62.5 Mg/Ml 2ml Vial IVP 10/08/24 09:00 Q8H MIYA Metoclopramide HCl 10 mg 10/05/24 12:00 Metoclopramide Inj 5 Mg/Ml Vial 2 Ml IVP 11/04/24 11:59 Q6HR MIYA Protocol Ondansetron HCl 4 mg 10/03/24 05:37 10/03/24 23:55 Ondansetron Inj 2 Mg/Ml Inj 2 Ml IVP 11/02/24 05:36 4 mg Q6H PRN Administration NAUSEA OR VOMITING Protocol Pantoprazole Sodium 40 mg 10/03/24 09:00 10/05/24 08:15 Pantoprazole Inj 40 Mg Vial IVP 11/02/24 08:59 40 mg QDAY MIYA Administration Pyridoxine HCl 25 mg 10/03/24 14:00 10/05/24 05:33 Pyridoxine 50 Mg Tablet PO 11/02/24 13:59 25 mg TID MIYA Administration Sennosides 1 tab 10/03/24 05:37 10/03/24 08:27 Senna Tablet PO 11/02/24 05:36 1 tab QDAY PRN Administration constipation Protocol Simethicone 80 mg 10/03/24 11:30 10/05/24 08:15 Simethicone 80 Mg Chew PO 11/02/24 11:29 80 mg QID PRN Administration GAS Plan Saima Yarbrough is a 29-year-old female with a past medical history of gestational diabetes, smoking, marijuana use, hypertension, PTSD, and bipolar disorder who presents with intractable nausea and vomiting x4 days. She was discharged from the ED earlier in the night, however returned immediately due to the vomiting. Patient is 10 weeks , this being her second . Admitted for intractable nausea and vomiting. #Intractable nausea and vomiting #Cyclic vomiting syndrome vs hyperemesis gravidarum vs cannibis hyperemesis syndrome #10 weeks Presenting with symptoms starting 4 days ago, unable to tolerate solid foods or liquids. Emesis noted to be bloody at times but hemoglobin stable with pain in her throat that also radiates to her back. Also endorses abdominal pain but no significant change in bowel habits. Previously tried zofran, scopolamine patch with benadryl, and promethazine 12.5 mg and 25 mg with minimal improvement (noted to take promethazine at home). Also tried simethicone and will now try Maalox. ? second chef consulted, appreciate recommendations ? Methylprednisolone 16 mg IV q8h for 3 days and then taper ? Reglan 10 mg IV q6h pre-meal and at bedtime ? Promethazine 25 mg IV q8h ? Pyridoxine 25 mg p.o. TID ? Avoid teratogenic medications #GERD #Sore throat ? Pantoprazole 40 mg IV daily ? Maalox 30 mL p.o. q4h PRN ? Simethicone 80 mg p.o. QID prn #UTI #Leukocytosis UA positive for leukocyte esterase, WBC 17, endorses urinary frequency. Patient does have history of frequent UTIs. ? Urine culture: mixed donell, possible contamination ? IV ceftriaxone 1 g daily (10/03-) #History of hypertension Patient was previously taking metoprolol however since start of she was switched to labetalol. #History of PTSD #History of anxiety #History of bipolar disorder Patient was started on lamotrigine for about psych disorders but patient states that she has stopped taking it herself. Currently not on any management. ? Haloperidol 2.5 mg IV q8h #Tobacco use #THC use ? Counselled patient Hospital management: Disposition: intractable nausea and vomiting Diet: clear liquid Lines: PIV DVT prophylaxis: enoxaparin 40 sc daily GI prophylaxis: pantoprazole 40 mg IV daily CODE STATUS: full code ----- Plan discussed with attending physician Dr. Levi Arellano MD PGY-1 Internal Medicine Attending Provider Attestation/Addendum I attest that I was physically present for the evaluation, physical examination, lab and imaging review of the patient with the residents. I discussed the case with the residents and agree with the findings and plans of care as documented above. Patient continues to complain of nausea and vomiting at bedside. Patient had been spending long time in the shower stating that helps her. Rapid response was called this morning as patient was having chest discomfort and high blood pressure. The pain was sharp around her epigastrium/lower chest radiating to the back. EKG did not show any ST changes, troponins were obtained which were negative. Patient had resolution of her symptoms with Maalox and haloperidol. Her vitals also came back to normal limits. On labs, her WBC count is improving, 12.1 today. But patient continues to have hypokalemia, 2.6 this morning. Patient has been having hard time tolerating oral medication, she also could not take her IV potassium repletion as she is spending time in the shower. Discussed with the patient of the importance of replating her electrolytes, patient understands and agrees. Despite trials of promethazine, diphenhydramine, scopolamine, ondansetron, pyridoxine, haloperidol along with PPI and simethicone, patient continues to have intractable nausea and vomiting leading to electrolyte imbalances. OB consult obtained, patient has been restarted on Reglan and methylprednisolone scheduled, appreciate recommendations. Closely for further nausea and vomiting along with close monitoring of her electrolytes. Subash Bishwakarma, MD
--- NOTE | 2024-10-05 10:59 | PD.RESEVENT ---
Documentation for date of: 10/05/24 Event Note Event Note: Rapid response was called this morning for chest discomfort and high blood pressure (160/64). Chest discomfort described as sharp and substernal that radiated to her back and improved with pressure on her chest; no shortness of breath, no radiation to her arms/neck. Other vital signs were stable as she was saturating well on room air and no fevers. EKG did not show any ST or T wave abnormalities and troponins negative. She was given Maalox and haloperidol 2.5 mg x1 as she endorsed experiencing significant anxiety and symptoms improved. ----- Plan discussed with attending physician Dr. Levi Arellano MD PGY-1 Internal Medicine
[2024-10-05] MEDS: MethylPREDNISolone SOD SUCC 62.5 MG/ML 2ML VIAL 16 MG IVP ×2 (11:06→17:48)
[2024-10-05] MEDS: cefTRIAXone/D5w 1gm IV premix 1 GM/50 ML BAG IV (11:10)
--- NOTE | 2024-10-05 11:54 | PC.NURSE ---
DR. ORO, MADE AWARE PT EMESIS 400CC . NO NEW ORDERS.
[2024-10-05] MEDS: METOCLOPRAMIDE INJ 5 MG/ML VIAL 2 ML 10 MG IVP ×2 (11:56→17:50)
[2024-10-05] MEDS: D5 IV ×2 (13:48→21:29)
[2024-10-05] MEDS: KCL IV ×2 (13:48→21:29)
[2024-10-05] MEDS: [UNRECOGNIZED DRUG - OTHER] IV ×2 (13:48→21:29)
[2024-10-05 15:32] LABS: Albumin, Serum 4.5 gm/dL (3.5-5.0); Anion Gap 11 (7-16); BUN/Creatinine Ratio 8 Ratio (12-20); Blood Urea Nitrogen < 5 mg/dL (9-23); Calcium 8.8 mg/dL (8.3-10.6); Calcium (Corrected) 8.8 mg/dL (8.5-10.1); Carbon Dioxide 26.3 mMol/L (20.0-31.0); Chloride 99 mMol/L (98-107); Creatinine (Component) 0.6 mg/dL (0.6-1.3); Estimated Creatinine Clearance 145.9 mL/min (>60); Glucose 166 mg/dL (74-106); Osmolality,Calculated 273 (275-295); Phosphorous 2.5 mg/dL (2.4-5.1); Potassium 3.1 mMol/L (3.4-5.1); Sodium 136 mMol/L (136-145); eGFR > 60 See Note
--- NOTE | 2024-10-05 16:01 | PC.NURSE ---
DR. SHORTY HE TO GIVE HALOPERIDOL NOW.
[2024-10-05] MEDS: lamoTRIgine 25 MG CHEW 100 MG PO (21:28)
[2024-10-05] MEDS: LIDOCAINE 5% 1 PATCH TOP (22:28)
[2024-10-06] VITALS (9 sets, daily range): BP systolic 123–159; BP diastolic 93–107; PULSE 69–112; RESP 15–100; TEMP 36.1–36.9; O2SAT 97–99; BMI 39.6
[2024-10-06] MEDS: MethylPREDNISolone SOD SUCC 62.5 MG/ML 2ML VIAL 16 MG IVP ×2 (00:16→08:08)
[2024-10-06] MEDS: METOCLOPRAMIDE INJ 5 MG/ML VIAL 2 ML 10 MG IVP ×4 (00:17→17:19)
[2024-10-06] MEDS: PYRIDOXINE 50 MG TABLET 25 MG PO ×3 (05:22→20:49)
[2024-10-06 06:59] LABS: Basophils % (Auto) 0 % (0-2.5); Eosinophils % (Auto) 0 % (0-10); Hematocrit 37.6 % (36.0-46.0); Hemoglobin 13.1 g/dL (12.0-16.0); Immature Granulocytes % (Auto) 1 % (0-0); Lymphocytes # (Auto) 2.7 Thou/mm3 (1.0-4.8); Lymphocytes % (Auto) 20 % (10-50); Mean Corpuscular HGB Conc 34.8 g/dl (31.0-37.0); Mean Corpuscular Hemoglobin 27.2 pg (25.0-35.0); Mean Corpuscular Volume 78 fL (80-100); Monocytes # (Auto) 0.8 Thou/mm3 (0.0-0.8); Monocytes % (Auto) 6 % (0-12); Neutrophils # (Auto) 9.8 Thou/mm3 (1.8-7.7); Neutrophils % (Auto) 74 % (37-80); Nucleated Red Blood Cell % 0 /100 WBC (0); Platelet Count 326 Thou/mm3 (140-440); RDW Standard Deviation 37.2 fL (36.4-46.3); Red Blood Count 4.82 Miln/mm3 (4.00-5.20); White Blood Count 13.4 Thou/mm3 (3.6-11.0)
[2024-10-06 07:13] LABS: Alanine Aminotransferase 22 U/L (10-49); Albumin, Serum 4.4 gm/dL (3.5-5.0); Albumin/Globulin Ratio 1.8 (1.2-2.2); Alkaline Phosphatase 61 U/L (46-116); Anion Gap 10 (7-16); Aspartate Amino Transferase 22 U/L (0-34); BUN/Creatinine Ratio 8 Ratio (12-20); Bilirubin,Total 0.5 mg/dL (0.3-1.2); Blood Urea Nitrogen < 5 mg/dL (9-23); Calcium 8.8 mg/dL (8.3-10.6); Calcium (Corrected) 8.8 mg/dL (8.5-10.1); Carbon Dioxide 25.2 mMol/L (20.0-31.0); Chloride 103 mMol/L (98-107); Creatinine (Component) 0.6 mg/dL (0.6-1.3); Estimated Creatinine Clearance 145.9 mL/min (>60); Globulin 2.4 gm/dL (2.3-3.5); Glucose 148 mg/dL (74-106); Magnesium 2.1 mg/dL (1.6-2.6); Osmolality,Calculated 275 (275-295); Phosphorous 2.6 mg/dL (2.4-5.1); Potassium 3.3 mMol/L (3.4-5.1); Sodium 138 mMol/L (136-145); Total Protein 6.8 gm/dL (5.7-8.2); eGFR > 60 See Note
[2024-10-06] MEDS: cefTRIAXone/D5w 1gm IV premix 1 GM/50 ML BAG IV (08:08)
[2024-10-06] MEDS: lamoTRIgine 25 MG CHEW 100 MG PO ×3 (08:09→20:51)
[2024-10-06] MEDS: FOLIC ACID 1 MG TABLET 5 MG PO (08:09)
[2024-10-06] MEDS: ENOXAPARIN SOD INJ 40 MG/0.4 ML SYRINGE SC (08:10)
[2024-10-06] MEDS: PANTOPRAZOLE INJ 40 MG VIAL IVP (08:11)
[2024-10-06] MEDS: ACETAMINOPHEN 325 MG TABLET 650 MG PO ×3 (08:14→21:41)
--- NOTE | 2024-10-06 09:56 | PD.RESPRO ---
Documentation for date of: 10/06/24 Subjective Subjective Interval history: No acute overnight events. Seen and examined at bedside and patient continues to feel nauseous. Nursing staff states that she has had 2 episodes of clear liquid emesis after her shift change but may be due to continuous p.o. water consumption. Will advise patient to decrease p.o. consumption to help alleviate symptoms. BP 151/100 and tachycardic at 112 bpm in early a.m. but resolved. K now improved at 3.3, repeat afternoon. Otherwise labs unremarkable, urine culture negative. If K continues to improve nausea improved, anticipate discharge within next 24 to 48 hours. Exam Vital Signs Temp Pulse Resp BP Pulse Ox O2 Del Method 97.1 F 88 18 151/100 H 98 Room Air 10/06/24 08:00 10/06/24 08:02 10/06/24 08:02 10/06/24 08:00 10/06/24 08:00 10/06/24 08:00 Narrative Exam General: AOx3, experiencing anxiety and discomfort from nausea and vomiting, able to speak full sentences HEENT: NC/AT, mucous membranes moist, bilateral sclera anicteric Cardiovascular: regular rate and rhythm, S1/S2 present, no murmurs appreciated Pulmonary: clear to auscultation bilaterally, no rales/rhonchi/wheezes Abdominal: soft, non-tender, non-distended, no rebound/guarding, normal bowel sounds present Musculoskeletal: normal ROM, no peripheral edema Skin: warm and dry, intact, no rashes Neuro: CN II-XII intact, no focal deficits Objective Labs 10/06/24 05:04 10/06/24 13:53 Labs: Laboratory Results - last 24 hr 10/05/24 10/06/24 15:03 05:04 WBC 13.4 H RBC 4.82 Hgb 13.1 Hct 37.6 MCV 78 L MCH 27.2 MCHC 34.8 RDW Std Deviation 37.2 Plt Count 326 D Neut % (Auto) 74 Lymph % (Auto) 20 Howard % (Auto) 6 Eos % (Auto) 0 Baso % (Auto) 0 Neut # (Auto) 9.8 H Lymph # (Auto) 2.7 Howard # (Auto) 0.8 Eos # (Auto) 0.0 Baso # (Auto) 0.0 Immature Gran # (Auto) 0.10 H Absolute Nucleated RBC 0.00 Immature Gran % 1 H Nucleated RBC % 0 Sodium 136 138 Potassium 3.1 L D 3.3 L Chloride 99 103 Carbon Dioxide 26.3 25.2 Anion Gap 11 10 BUN < 5 L < 5 L Creatinine 0.6 0.6 Estim Creat Clear Calc 145.9 145.9 eGFR > 60 > 60 BUN/Creatinine Ratio 8 L 8 L Glucose 166 H D 148 H Calculated Osmolality 273 L 275 Calcium 8.8 8.8 Corrected Calcium 8.8 8.8 Phosphorus 2.5 2.6 Magnesium 2.1 Total Bilirubin 0.5 AST 22 ALT 22 Alkaline Phosphatase 61 D Total Protein 6.8 Albumin 4.5 D 4.4 Globulin 2.4 Albumin/Globulin Ratio 1.8 Quality Measures Quality Measures none Assessment & Plan Assessment Current Active Medications: Generic Name Dose Route Start Last Admin Trade Name Freq PRN Reason Stop Dose Admin Acetaminophen 650 mg 10/03/24 05:37 10/06/24 08:14 Acetaminophen 325 Mg Tablet PO 11/02/24 05:36 650 mg Q6H PRN Administration Fever >100.3 or pain Capsaicin 0 gm 10/03/24 22:00 10/06/24 05:08 Capsaicin Cr 60 Gm Tube TOP 11/02/24 21:59 Not Given TID MIYA Enoxaparin Sodium 40 mg 10/03/24 09:00 10/06/24 08:10 Enoxaparin Sod Inj 40 Mg/0.4 Ml Syringe SC 10/17/24 08:59 40 mg QDAY MIYA Administration Folic Acid 5 mg 10/06/24 09:00 10/06/24 08:09 Folic Acid 1 Mg Tablet PO 11/05/24 08:59 5 mg QDAY MIYA Administration Haloperidol Lactate 2.5 mg 10/04/24 15:31 10/05/24 15:57 Haloperidol Lact Inj 5 Mg/Ml Vial IV 10/09/24 15:30 2.5 mg Q8HR PRN Administration AGITATION (SEVERE) Ceftriaxone Sodium/Dextrose 1 gm in 50 mls @ 100 mls/hr 10/04/24 09:00 10/06/24 08:08 Rocephin/D5w 1gm Iv Premix IV 10/11/24 08:59 100 mls/hr QDAY MIYA Administration Potassium Chloride/Dextrose/Sod Cl 40 meq in 1,000 mls @ 125 mls/hr 10/05/24 12:30 10/05/24 21:29 Kcl 40 Meq/L In D5-1/2ns IV 11/04/24 12:29 125 mls/hr .Q8H MIYA Administration Lamotrigine 100 mg 10/05/24 21:00 10/06/24 08:09 Lamotrigine 25 Mg Chew PO 11/04/24 20:59 100 mg BID MIYA Administration Magnesium Hydroxide 30 ml 10/04/24 11:56 Milk Of Magnesia Susp 30 Ml Udc PO 11/03/24 11:55 X1 PRN Constipation Protocol Methylprednisolone Sodium Succinate 16 mg 10/05/24 09:15 10/06/24 08:08 Methylprednisolone Sod Succ 62.5 Mg/Ml 2ml Vial IVP 10/08/24 09:00 16 mg Q8H MIYA Administration Metoclopramide HCl 10 mg 10/05/24 12:00 10/06/24 05:22 Metoclopramide Inj 5 Mg/Ml Vial 2 Ml IVP 11/04/24 11:59 10 mg Q6HR MIYA Administration Protocol Pantoprazole Sodium 40 mg 10/03/24 09:00 10/06/24 08:11 Pantoprazole Inj 40 Mg Vial IVP 11/02/24 08:59 40 mg QDAY MIYA Administration Pyridoxine HCl 25 mg 10/03/24 14:00 10/06/24 05:22 Pyridoxine 50 Mg Tablet PO 11/02/24 13:59 25 mg TID MIYA Administration Sennosides 1 tab 10/03/24 05:37 10/03/24 08:27 Senna Tablet PO 11/02/24 05:36 1 tab QDAY PRN Administration constipation Protocol Simethicone 80 mg 10/03/24 11:30 10/05/24 21:29 Simethicone 80 Mg Chew PO 11/02/24 11:29 80 mg QID PRN Administration GAS Plan Saima Yarbrough is a 29-year-old female with a past medical history of gestational diabetes, smoking, marijuana use, hypertension, PTSD, and bipolar disorder who presents with intractable nausea and vomiting x4 days. She was discharged from the ED earlier in the night, however returned immediately due to the vomiting. Patient is 10 weeks , this being her second . Admitted for intractable nausea and vomiting. #Intractable nausea and vomiting #Cyclic vomiting syndrome vs hyperemesis gravidarum vs cannibis hyperemesis syndrome #10 weeks Presenting with symptoms starting 4 days ago, unable to tolerate solid foods or liquids. Emesis noted to be bloody at times but hemoglobin stable with pain in her throat that also radiates to her back. Also endorses abdominal pain but no significant change in bowel habits. Previously tried zofran, scopolamine patch with benadryl, and promethazine 12.5 mg and 25 mg with minimal improvement (noted to take promethazine at home). Also tried simethicone and will now try Maalox. ? dump truck operator consulted, appreciate recommendations ? Methylprednisolone 16 mg IV q8h for 3 days and then taper ? Reglan 10 mg IV q6h pre-meal and at bedtime ? Pyridoxine 25 mg p.o. TID ? Avoid teratogenic medications #Hypokalemia, improving EKG on 10/04 showed QTc 438, repeat on 10/05 showed QTc of 468. Possible changes related to hypokalemia, such as depressed ST segment and U waves but resolved. ? KCl in IVF ? Repeat K in afternoon #History of PTSD #History of anxiety #History of bipolar disorder Patient was started on lamotrigine for about psych disorders but patient states that she has stopped taking it herself. Currently not on any management. ? Lamotrigine 100 mg p.o. twice daily ? Haloperidol 2.5 mg IV q8h #GERD #Sore throat ? Pantoprazole 40 mg IV daily ? Maalox 30 mL p.o. q4h PRN ? Simethicone 80 mg p.o. QID prn #UTI #Leukocytosis UA positive for leukocyte esterase, WBC 17, endorses urinary frequency. Patient does have history of frequent UTIs. ? Urine culture: mixed donell, possible contamination ? IV ceftriaxone 1 g daily (10/03-) #History of hypertension Patient was previously taking metoprolol however since start of she was switched to labetalol. #Tobacco use #THC use ? Counselled patient Hospital management: Disposition: intractable nausea and vomiting, hypokalemia Diet: clear liquid Lines: PIV DVT prophylaxis: enoxaparin 40 sc daily GI prophylaxis: pantoprazole 40 mg IV daily CODE STATUS: full code ----- Plan discussed with attending physician Dr. Levi Arellano MD PGY-1 Internal Medicine Attending Provider Attestation/Addendum I attest that I was physically present for the evaluation, physical examination, lab and imaging review of the patient with the residents. I discussed the case with the residents and agree with the findings and plans of care as documented above. At bedside, patient continues to feel nauseous. But as per her RN, she has been vomiting less frequently, has been able to tolerate her diet. Vitals are stable except for hypertension. WBC count went to 13.4 from 12.1 yesterday, likely secondary to steroid use. Potassium level improved to 3.3. Patient continues to be on metoclopramide and methylprednisolone. She is also started on lamotrigine as recommended by OB. Currently on clear liquid diet, OB has been following closely, appreciate recommendations. We will continue to monitor closely for her nausea, and electrolytes if continues to improve, we will plan for discharge tomorrow. Quincy Sims MD
[2024-10-06] MEDS: KCL IV ×2 (10:19→19:58)
[2024-10-06] MEDS: D5 IV ×2 (10:19→19:58)
[2024-10-06] MEDS: [UNRECOGNIZED DRUG - OTHER] IV ×2 (10:19→19:58)
--- NOTE | 2024-10-06 10:45 | PC.SS ---
Saima Yarbrough is a 29-year-old female admitted to Med Surg for Intractable Vomiting. SS conducted bedside contact with the patient to complete initial assessment and to discuss discharge planning. Role and reason explained. Patient confirmed demographic information. Patient identifies father Gentry Rizo [phone] as her surrogate decision maker. Pt states she is able to complete all ADL?s independently. No need for any source of DME. Pts PCP is Dr. Escobar. Pharmacy of choice is [facility]. Discharge options discussed and the pt wishes to return home. ?Family will provide transportation upon DC. No further intervention required at this time, social services specialist would be available to address any further concerns. DC Plan: Home Contact: father Gentry Rizo [phone] Address: Confirmed on face sheet PCP: Shawn
[2024-10-06] MEDS: HALOPERIDOL LACT INJ 5 MG/ML VIAL 2.5 MG IV ×2 (12:06→20:54)
[2024-10-06 14:14] LABS: Potassium 3.2 mMol/L (3.4-5.1)
--- NOTE | 2024-10-06 14:47 | PC.SS ---
Rounding: Advance diet, if tolerates and N/V decreases, DC home tomorrow
[2024-10-06] MEDS: POTASSIUM CHLORIDE 20 mEq TABCR 40 MEQ PO (14:56)
[2024-10-06] MEDS: SIMETHICONE 80 MG CHEW PO (18:17)
[2024-10-06] MEDS: CAPSAICIN CR 60 GM TUBE TOP (19:58)
[2024-10-06] MEDS: MELATONIN 3 MG TABLET PO (21:41)
[2024-10-07] VITALS (9 sets, daily range): BP systolic 141–154; BP diastolic 81–111; PULSE 68–105; RESP 16–19; TEMP 36.2–36.8; O2SAT 23–99
[2024-10-07] MEDS: METOCLOPRAMIDE INJ 5 MG/ML VIAL 2 ML 10 MG IVP ×5 (00:01→23:33)
[2024-10-07] MEDS: D5 IV ×2 (04:49→14:14)
[2024-10-07] MEDS: [UNRECOGNIZED DRUG - OTHER] IV ×2 (04:49→14:14)
[2024-10-07] MEDS: KCL IV ×2 (04:49→14:14)
[2024-10-07] MEDS: SIMETHICONE 80 MG CHEW PO (04:58)
[2024-10-07] MEDS: PYRIDOXINE 50 MG TABLET 25 MG PO ×3 (05:01→21:18)
[2024-10-07] MEDS: CAPSAICIN CR 60 GM TUBE TOP ×2 (05:01→14:14)
[2024-10-07 05:54] LABS: Basophils % (Auto) 0 % (0-2.5); Eosinophils % (Auto) 0 % (0-10); Hematocrit 35.3 % (36.0-46.0); Immature Granulocytes % (Auto) 1 % (0-0); Immature Granulocytes Auto 0.07 Thou/mm3 (0.00-0.00); Lymphocytes # (Auto) 4.1 Thou/mm3 (1.0-4.8); Lymphocytes % (Auto) 36 % (10-50); Mean Corpuscular Volume 79 fL (80-100); Monocytes # (Auto) 0.9 Thou/mm3 (0.0-0.8); Monocytes % (Auto) 8 % (0-12); Neutrophils # (Auto) 6.1 Thou/mm3 (1.8-7.7); Neutrophils % (Auto) 54 % (37-80); Nucleated Red Blood Cell % 0 /100 WBC (0); Platelet Count 282 Thou/mm3 (140-440); RDW Standard Deviation 37.3 fL (36.4-46.3); Red Blood Count 4.45 Miln/mm3 (4.00-5.20); White Blood Count 11.3 Thou/mm3 (3.6-11.0)
[2024-10-07 06:31] LABS: Alanine Aminotransferase 21 U/L (10-49); Albumin, Serum 3.9 gm/dL (3.5-5.0); Albumin/Globulin Ratio 1.7 (1.2-2.2); Alkaline Phosphatase 48 U/L (46-116); Anion Gap 9 (7-16); Aspartate Amino Transferase 16 U/L (0-34); BUN/Creatinine Ratio 10 Ratio (12-20); Bilirubin,Total 0.5 mg/dL (0.3-1.2); Blood Urea Nitrogen < 5 mg/dL (9-23); Calcium 8.2 mg/dL (8.3-10.6); Calcium (Corrected) 8.3 mg/dL (8.5-10.1); Carbon Dioxide 26.1 mMol/L (20.0-31.0); Chloride 101 mMol/L (98-107); Creatinine (Component) 0.5 mg/dL (0.6-1.3); Globulin 2.3 gm/dL (2.3-3.5); Glucose 104 mg/dL (74-106); Magnesium 1.8 mg/dL (1.6-2.6); Osmolality,Calculated 269 (275-295); Phosphorous 2.4 mg/dL (2.4-5.1); Potassium 3.3 mMol/L (3.4-5.1); Sodium 136 mMol/L (136-145); Total Protein 6.2 gm/dL (5.7-8.2); eGFR > 60 See Note
--- NOTE | 2024-10-07 07:14 | PD.GYNPROG ---
Documentation for date of: 10/06/24 MODEL AND DYE PERSON Subjective Subjective Interval history: No acute overnight events. Seen and examined at bedside and patient continues to feel nauseous but subjectively improved prior to the previous day. BP 151/100 and tachycardic at 112 bpm in early a.m. but resolved. K now improved at 3.3, repeat afternoon 3.2. Otherwise labs unremarkable, urine culture negative. K continues to improve nausea improved, anticipate discharge within next 24 to 48 hours. Exam Vital Signs Temp Pulse Resp BP Pulse Ox O2 Del Method 97.7 F 101 H 19 142/95 H 99 Room Air 10/07/24 04:00 10/07/24 04:00 10/07/24 04:00 10/07/24 04:00 10/07/24 04:00 10/07/24 04:00 Constitutional Constitutional: no acute distress Routine HEENT Exam Head: Present normocephalic and atraumatic Eye: Present EOMI and PERRL ENT: Present mucous membranes moist Routine Neck Exam Neck: Present supple and trachea midline Routine Respiratory Exam Respiratory: Present chest non-tender, lungs clear, normal breath sounds and no resp distress Routine Cardiovascular Exam Cardiovascular: Present RRR Routine Abdominal Exam Abdominal: Present soft and normoactive bowel sounds Routine Extremities Exam Extremities: Present full ROM Routine Skin Exam Skin: Present intact and dry Routine Neurological Exam Neurological: Present alert, oriented X3 and CN II-XII intact Routine Psychiatric Exam Psychiatric: Present normal affect and normal thought process Urinary Catheter Management Cath placed during this visit: no MODEL AND DYE PERSON - PN: Obj Data Labs 10/07/24 04:44 10/07/24 04:44 Labs: Laboratory Results - last 24 hr 10/06/24 10/06/24 10/07/24 05:04 13:53 04:44 WBC 11.3 H RBC 4.45 Hgb 12.0 Hct 35.3 L MCV 79 L MCH 27.0 MCHC 34.0 RDW Std Deviation 37.3 Plt Count 282 D Neut % (Auto) 54 Lymph % (Auto) 36 Maries % (Auto) 8 Eos % (Auto) 0 Baso % (Auto) 0 Neut # (Auto) 6.1 Lymph # (Auto) 4.1 Maries # (Auto) 0.9 H Eos # (Auto) 0.0 Baso # (Auto) 0.0 Immature Gran # (Auto) 0.07 H Absolute Nucleated RBC 0.00 Immature Gran % 1 H Nucleated RBC % 0 Sodium 138 136 Potassium 3.3 L 3.2 L 3.3 L Chloride 103 101 Carbon Dioxide 25.2 26.1 Anion Gap 10 9 BUN < 5 L < 5 L Creatinine 0.6 0.5 L Estim Creat Clear Calc 145.9 175.0 eGFR > 60 > 60 BUN/Creatinine Ratio 8 L 10 L Glucose 148 H 104 Calculated Osmolality 275 269 L Calcium 8.8 8.2 L Corrected Calcium 8.8 8.3 L Phosphorus 2.6 2.4 Magnesium 2.1 1.8 Total Bilirubin 0.5 0.5 AST 22 16 ALT 22 21 Alkaline Phosphatase 61 D 48 D Total Protein 6.8 6.2 Albumin 4.4 3.9 D Globulin 2.4 2.3 Albumin/Globulin Ratio 1.8 1.7 MODEL AND DYE PERSON - A/P Assessment and plan (1) Cyclical vomiting, intractable: Status: Acute (2) Marijuana use: Status: Acute (3) Hyperemesis gravidarum: Status: Acute Assessment and plan: Continue current plan, will continue methylprednisone 16 mg until resolution of symptoms Reassessment as needed Will replace potassium on an ongoing basis based on labs Time Spent With Patient Time: Total time spent is greater than 50% in coordination of care (as documented) at patient's floor/unit and/or counseling patient: Time with patient: less than 15 minutes
[2024-10-07] MEDS: FOLIC ACID 1 MG TABLET 5 MG PO (08:23)
[2024-10-07] MEDS: LABETALOL 100 MG TABLET 200 MG PO ×2 (08:23→21:17)
[2024-10-07] MEDS: SENNA TABLET 1 TAB PO (08:23)
[2024-10-07] MEDS: POTASSIUM CHLORIDE 10% 20 MEQ/15 ML UDC 40 MEQ PO (08:24)
[2024-10-07] MEDS: PANTOPRAZOLE INJ 40 MG VIAL IVP (08:24)
[2024-10-07] MEDS: cefTRIAXone/D5w 1gm IV premix 1 GM/50 ML BAG IV (08:24)
[2024-10-07] MEDS: ENOXAPARIN SOD INJ 40 MG/0.4 ML SYRINGE SC (08:24)
[2024-10-07] MEDS: lamoTRIgine 25 MG CHEW 100 MG PO ×2 (08:35→21:20)
--- NOTE | 2024-10-07 11:06 | ESPR_ITS ---
<Statement entered by William Crenshaw MD - 10/08/24 07:51> 29-year-old female with bipolar disorder and PTSD, marijuana use disorder (last use 3 days prior to admission) who is about 10-11-week with her second presented with intractable nausea and vomiting. During course of hospitalization, obstetrics/gynecology was consulted and recommended starting patient on Reglan, pyridoxine and methylprednisone. In addition, patient also noted to have hypokalemia despite aggressive potassium replacement likely related to intractable nausea and vomiting. At this point, patient intractable nausea and vomiting could be multifactorial including first trimester and exacerbated by possible marijuana use. Currently, patient continues to be nauseous and did have 1 episode of emesis while talking to the patient. Plan to continue Reglan, pyridoxine methylprednisone and appreciate ENTRY ANALYST recommendation.I reviewed above note and agree with findings and plans. I have also personally examined the patient with medicine team and went over assessment and plan with medical team including internal grinder set up operator and resident physician. <Statement entered by Brenda Edwards MD - 10/07/24 14:28> Patient seen and examined at bedside. No acute overnight events reported. Patient continues to have vomiting and is concerned about going home too early as her electrolytes are fluctuating on the low end. Patient was reassured that patient will only be discharged when patient's symptoms and electrolytes are improved/repleted. Otherwise, patient will continue with her last day of steroids today and continue with lamotrigine 100 mg twice daily. Patient's blood pressure was also on the high end of normal, and will restart her home blood pressure medications. I discussed with and supervised the internal grinder set up operator physician who took care of this patient. I personally saw and examined the patient and discussed the assessment and plan with the entire medicine team, including my attending Dr. Crenshaw, I agree with most of the assessment and plan as documented below Brenda Edwards M.D. PGY-2 Disclaimer: Despite multiple revisions, due to the dictation software being used, the document bellow may not be free of grammatical errors including phonetic/typographic errors. However, this does not deter from our commitment to providing health care in the patient's best interest in mind. Documentation for date of: 10/07/24 Subjective Subjective Interval history: No acute overnight events. Seen and examined at bedside and patient continues to endorse nausea and vomiting but does endorse that her symptoms have improved. Also continues to endorse chest and back discomfort, likely secondary to esophageal irritation. Today is her last day on IV methylprednisolone, K continues to be low at 3.3, and calcium also low. Heart rate elevated at 102 and BP 142/111 and restarted home labetolol dose of 200 mg twice daily. Will continue to monitor and anticipate discharge within next 24-48 hours if K and symptoms continue to improve. Exam Vital Signs Temp Pulse Resp BP Pulse Ox O2 Del Method 97.5 F 102 H 18 142/111 H 97 Room Air 10/07/24 08:00 10/07/24 08:23 10/07/24 08:00 10/07/24 08:23 10/07/24 08:00 10/07/24 08:00 Narrative Exam General: AOx3, experiencing anxiety and discomfort from nausea and vomiting, able to speak full sentences HEENT: NC/AT, mucous membranes moist, bilateral sclera anicteric Cardiovascular: regular rate and rhythm, S1/S2 present, no murmurs appreciated Pulmonary: clear to auscultation bilaterally, no rales/rhonchi/wheezes Abdominal: soft, non-tender, non-distended, no rebound/guarding, normal bowel sounds present Musculoskeletal: normal ROM, no peripheral edema Skin: warm and dry, intact, no rashes Neuro: CN II-XII intact, no focal deficits Objective Labs 10/07/24 04:44 10/07/24 04:44 Labs: Laboratory Results - last 24 hr 10/06/24 10/07/24 13:53 04:44 WBC 11.3 H RBC 4.45 Hgb 12.0 Hct 35.3 L MCV 79 L MCH 27.0 MCHC 34.0 RDW Std Deviation 37.3 Plt Count 282 D Neut % (Auto) 54 Lymph % (Auto) 36 [place] % (Auto) 8 Eos % (Auto) 0 Baso % (Auto) 0 Neut # (Auto) 6.1 Lymph # (Auto) 4.1 [place]yer # (Auto) 0.9 H Eos # (Auto) 0.0 Baso # (Auto) 0.0 Immature Gran # (Auto) 0.07 H Absolute Nucleated RBC 0.00 Immature Gran % 1 H Nucleated RBC % 0 Sodium 136 Potassium 3.2 L 3.3 L Chloride 101 Carbon Dioxide 26.1 Anion Gap 9 BUN < 5 L Creatinine 0.5 L Estim Creat Clear Calc 175.0 eGFR > 60 BUN/Creatinine Ratio 10 L Glucose 104 Calculated Osmolality 269 L Calcium 8.2 L Corrected Calcium 8.3 L Phosphorus 2.4 Magnesium 1.8 Total Bilirubin 0.5 AST 16 ALT 21 Alkaline Phosphatase 48 D Total Protein 6.2 Albumin 3.9 D Globulin 2.3 Albumin/Globulin Ratio 1.7 Quality Measures Quality Measures none Assessment & Plan Assessment Current Active Medications: Generic Name Dose Route Start Last Admin Trade Name Freq PRN Reason Stop Dose Admin Acetaminophen 650 mg 10/03/24 05:37 10/06/24 21:41 Acetaminophen 325 Mg Tablet PO 11/02/24 05:36 650 mg Q6H PRN Administration Fever >100.3 or pain Capsaicin 0 gm 10/03/24 22:00 10/07/24 05:01 Capsaicin Cr 60 Gm Tube TOP 11/02/24 21:59 1 applicatio TID MIYA Administration Enoxaparin Sodium 40 mg 10/03/24 09:00 10/07/24 08:24 Enoxaparin Sod Inj 40 Mg/0.4 Ml Syringe SC 10/17/24 08:59 40 mg QDAY MIYA Administration Folic Acid 5 mg 10/06/24 09:00 10/07/24 08:23 Folic Acid 1 Mg Tablet PO 11/05/24 08:59 5 mg QDAY MIYA Administration Haloperidol Lactate 2.5 mg 10/04/24 15:31 10/06/24 20:54 Haloperidol Lact Inj 5 Mg/Ml Vial IV 10/09/24 15:30 2.5 mg Q8HR PRN Administration AGITATION (SEVERE) Ceftriaxone Sodium/Dextrose 1 gm in 50 mls @ 100 mls/hr 10/04/24 09:00 10/07/24 08:24 Rocephin/D5w 1gm Iv Premix IV 10/11/24 08:59 100 mls/hr QDAY MIYA Administration Potassium Chloride/Dextrose/Sod Cl 40 meq in 1,000 mls @ 125 mls/hr 10/05/24 12:30 10/07/24 04:54 Kcl 40 Meq/L In D5-1/2ns IV 11/04/24 12:29 Not Given .Q8H MIYA Labetalol HCl 200 mg 10/07/24 09:00 10/07/24 08:23 Labetalol 100 Mg Tablet PO 11/06/24 08:59 200 mg BID MIYA Administration Lamotrigine 100 mg 10/05/24 21:00 10/07/24 08:35 Lamotrigine 25 Mg Chew PO 11/04/24 20:59 100 mg BID MIYA Administration Magnesium Hydroxide 30 ml 10/04/24 11:56 Milk Of Magnesia Susp 30 Ml Udc PO 11/03/24 11:55 X1 PRN Constipation Protocol Melatonin 3 mg 10/06/24 21:35 10/06/24 21:41 Melatonin 3 Mg Tablet PO 11/05/24 21:34 3 mg HS MIYA Administration Methylprednisolone Sodium Succinate 16 mg 10/06/24 14:00 10/07/24 05:01 Methylprednisolone Sod Succ 40 Mg Vial IVP 10/12/24 09:14 16 mg Q8HR MIYA Administration Metoclopramide HCl 10 mg 10/05/24 12:00 10/07/24 05:01 Metoclopramide Inj 5 Mg/Ml Vial 2 Ml IVP 11/04/24 11:59 10 mg Q6HR MIYA Administration Protocol Pantoprazole Sodium 40 mg 10/03/24 09:00 10/07/24 08:24 Pantoprazole Inj 40 Mg Vial IVP 11/02/24 08:59 40 mg QDAY MIYA Administration Pyridoxine HCl 25 mg 10/03/24 14:00 10/07/24 05:01 Pyridoxine 50 Mg Tablet PO 11/02/24 13:59 25 mg TID MIYA Administration Sennosides 1 tab 10/03/24 05:37 10/07/24 08:23 Senna Tablet PO 11/02/24 05:36 1 tab QDAY PRN Administration constipation Protocol Simethicone 80 mg 10/03/24 11:30 10/07/24 04:58 Simethicone 80 Mg Chew PO 11/02/24 11:29 80 mg QID PRN Administration GAS Plan Saima Yarbrough is a 29-year-old female with a past medical history of gestational diabetes, smoking, marijuana use, hypertension, PTSD, and bipolar disorder who presents with intractable nausea and vomiting x4 days. She was discharged from the ED earlier in the night, however returned immediately due to the vomiting. Patient is 10 weeks , this being her second . Admitted for intractable nausea and vomiting. #Intractable nausea and vomiting #Cyclic vomiting syndrome vs hyperemesis gravidarum vs cannibis hyperemesis syndrome #11 weeks Presenting with symptoms starting 4 days ago, unable to tolerate solid foods or liquids. Emesis noted to be bloody at times but hemoglobin stable with pain in her throat that also radiates to her back. Also endorses abdominal pain but no significant change in bowel habits. Previously tried zofran, scopolamine patch with benadryl, and promethazine 12.5 mg and 25 mg with minimal improvement (noted to take promethazine at home). Also tried simethicone and will now try Maalox. ? edge stainer consulted, appreciate recommendations ? Methylprednisolone 16 mg IV q8h for 3 days and then taper ? Reglan 10 mg IV q6h pre-meal and at bedtime ? Pyridoxine 25 mg p.o. TID ? Avoid teratogenic medications #Hypokalemia, improving EKG on 10/04 showed QTc 438, repeat on 10/05 showed QTc of 468. Possible changes related to hypokalemia, such as depressed ST segment and U waves but resolved. ? KCl in IVF ? Repeat K in afternoon #History of PTSD #History of anxiety #History of bipolar disorder Patient was started on lamotrigine for about psych disorders but patient states that she has stopped taking it herself. Currently not on any management. ? Lamotrigine 100 mg p.o. twice daily ? Haloperidol 2.5 mg IV q8h #GERD #Sore throat ? Pantoprazole 40 mg IV daily ? Maalox 30 mL p.o. q4h PRN ? Simethicone 80 mg p.o. QID prn #UTI #Leukocytosis UA positive for leukocyte esterase, WBC 17, endorses urinary frequency. Patient does have history of frequent UTIs. ? Urine culture: mixed donell, possible contamination ? IV ceftriaxone 1 g daily (10/03-) #History of hypertension Patient was previously taking metoprolol however since start of she was switched to labetalol. ? Restarted home labetolol 200 mg p.o. twice daily #Tobacco use #THC use ? Counselled patient Hospital management: Disposition: intractable nausea and vomiting, hypokalemia Diet: full liquid Lines: PIV DVT prophylaxis: enoxaparin 40 sc daily GI prophylaxis: pantoprazole 40 mg IV daily CODE STATUS: full code ----- Plan discussed with attending physician Dr. Crenshaw and senior resident physician Dr. Grace Arellano MD PGY-1 Internal Medicine
--- NOTE | 2024-10-07 11:32 | PC.SS ---
SS follow up note; Patient is still vomiting, Potassium being monitored. Patient will discharge back home when medically cleared.
[2024-10-07] MEDS: HALOPERIDOL LACT INJ 5 MG/ML VIAL 2.5 MG IV ×2 (12:03→21:37)
[2024-10-07 14:29] LABS: Potassium 3.8 mMol/L (3.4-5.1)
[2024-10-07] MEDS: MELATONIN 3 MG TABLET PO (21:18)
[2024-10-07] MEDS: LIDOCAINE 5% 1 PATCH TOP (23:38)
[2024-10-08] VITALS: PULSE 94
[2024-10-08] MEDS: D5 IV (02:05)
[2024-10-08] MEDS: KCL IV (02:05)
[2024-10-08] MEDS: [UNRECOGNIZED DRUG - OTHER] IV (02:05)
[2024-10-08 04:00] VITALS: BP 134/87; PULSE 78; PULSE 90; RESP 16; TEMP 36.2; O2SAT 99
[2024-10-08] MEDS: DiphenhydrAMINE INJ 50 MG/ML VIAL 12.5 MG IVP (04:06)
[2024-10-08] MEDS: METOCLOPRAMIDE INJ 5 MG/ML VIAL 2 ML 10 MG IVP ×2 (05:48→12:01)
[2024-10-08] MEDS: PYRIDOXINE 50 MG TABLET 25 MG PO ×2 (05:55→13:56)
[2024-10-08 06:04] LABS: Basophils % (Auto) 0 % (0-2.5); Eosinophils % (Auto) 0 % (0-10); Hematocrit 33.4 % (36.0-46.0); Hemoglobin 11.8 g/dL (12.0-16.0); Immature Granulocytes % (Auto) 1 % (0-0); Immature Granulocytes Auto 0.11 Thou/mm3 (0.00-0.00); Lymphocytes # (Auto) 2.9 Thou/mm3 (1.0-4.8); Lymphocytes % (Auto) 23 % (10-50); Mean Corpuscular HGB Conc 35.3 g/dl (31.0-37.0); Mean Corpuscular Hemoglobin 27.4 pg (25.0-35.0); Mean Corpuscular Volume 78 fL (80-100); Monocytes # (Auto) 0.9 Thou/mm3 (0.0-0.8); Monocytes % (Auto) 7 % (0-12); Neutrophils # (Auto) 8.6 Thou/mm3 (1.8-7.7); Neutrophils % (Auto) 69 % (37-80); Nucleated Red Blood Cell % 0 /100 WBC (0); Platelet Count 272 Thou/mm3 (140-440); RDW Standard Deviation 37.2 fL (36.4-46.3); White Blood Count 12.6 Thou/mm3 (3.6-11.0)
[2024-10-08 06:31] LABS: Alanine Aminotransferase 19 U/L (10-49); Albumin, Serum 3.9 gm/dL (3.5-5.0); Albumin/Globulin Ratio 1.7 (1.2-2.2); Alkaline Phosphatase 46 U/L (46-116); Anion Gap 11 (7-16); Aspartate Amino Transferase 12 U/L (0-34); BUN/Creatinine Ratio 10 Ratio (12-20); Bilirubin,Total 0.3 mg/dL (0.3-1.2); Blood Urea Nitrogen < 5 mg/dL (9-23); Calcium 9.8 mg/dL (8.3-10.6); Calcium (Corrected) 9.9 mg/dL (8.5-10.1); Carbon Dioxide 23.7 mMol/L (20.0-31.0); Chloride 101 mMol/L (98-107); Creatinine (Component) 0.5 mg/dL (0.6-1.3); Globulin 2.3 gm/dL (2.3-3.5); Glucose 121 mg/dL (74-106); Osmolality,Calculated 270 (275-295); Phosphorous 4.5 mg/dL (2.4-5.1); Potassium 3.8 mMol/L (3.4-5.1); Sodium 136 mMol/L (136-145); Total Protein 6.2 gm/dL (5.7-8.2); eGFR > 60 See Note
[2024-10-08 06:47] LABS: Magnesium 1.6 mg/dL (1.6-2.6)
[2024-10-08 07:20] VITALS: PULSE 74
[2024-10-08] MEDS: ENOXAPARIN SOD INJ 40 MG/0.4 ML SYRINGE SC (07:42)
[2024-10-08] MEDS: PANTOPRAZOLE INJ 40 MG VIAL IVP (07:43)
[2024-10-08] MEDS: FOLIC ACID 1 MG TABLET 5 MG PO (07:43)
[2024-10-08] MEDS: lamoTRIgine 25 MG CHEW 100 MG PO (07:44)
[2024-10-08 07:45] VITALS: BP 130/84; PULSE 82
[2024-10-08] MEDS: LABETALOL 100 MG TABLET 200 MG PO (07:45)
[2024-10-08] MEDS: cefTRIAXone/D5w 1gm IV premix 1 GM/50 ML BAG IV (07:46)
[2024-10-08 07:57] VITALS: BP 146/94; PULSE 94; RESP 16; TEMP 36.2; O2SAT 99
--- NOTE | 2024-10-08 10:35 | PD.RESPRO ---
Documentation for date of: 10/08/24 Exam Vital Signs Temp Pulse Resp BP Pulse Ox O2 Del Method 97.2 F 94 16 146/94 H 99 Room Air 10/08/24 07:57 10/08/24 07:57 10/08/24 07:57 10/08/24 07:57 10/08/24 07:57 10/08/24 07:57 Objective Labs 10/08/24 05:45 10/08/24 05:45 Labs: Laboratory Results - last 24 hr 10/07/24 10/08/24 14:08 05:45 WBC 12.6 H RBC 4.30 Hgb 11.8 L Hct 33.4 L MCV 78 L MCH 27.4 MCHC 35.3 RDW Std Deviation 37.2 Plt Count 272 Neut % (Auto) 69 Lymph % (Auto) 23 [place] % (Auto) 7 Eos % (Auto) 0 Baso % (Auto) 0 Neut # (Auto) 8.6 H Lymph # (Auto) 2.9 [place] # (Auto) 0.9 H Eos # (Auto) 0.0 Baso # (Auto) 0.0 Immature Gran # (Auto) 0.11 H Absolute Nucleated RBC 0.00 Immature Gran % 1 H Nucleated RBC % 0 Sodium 136 Potassium 3.8 D 3.8 Chloride 101 Carbon Dioxide 23.7 Anion Gap 11 BUN < 5 L Creatinine 0.5 L Estim Creat Clear Calc 175.0 eGFR > 60 BUN/Creatinine Ratio 10 L Glucose 121 H Calculated Osmolality 270 L Calcium 9.8 D Corrected Calcium 9.9 D Phosphorus 4.5 Magnesium 1.6 Total Bilirubin 0.3 AST 12 ALT 19 Alkaline Phosphatase 46 Total Protein 6.2 Albumin 3.9 Globulin 2.3 Albumin/Globulin Ratio 1.7 Quality Measures Quality Measures none Assessment & Plan Assessment Current Active Medications: Generic Name Dose Route Start Last Admin Trade Name Freq PRN Reason Stop Dose Admin Acetaminophen 650 mg 10/03/24 05:37 10/06/24 21:41 Acetaminophen 325 Mg Tablet PO 11/02/24 05:36 650 mg Q6H PRN Administration Fever >100.3 or pain Capsaicin 0 gm 10/03/24 22:00 10/08/24 06:09 Capsaicin Cr 60 Gm Tube TOP 11/02/24 21:59 Not Given TID [facility] Enoxaparin Sodium 40 mg 10/03/24 09:00 10/08/24 07:42 Enoxaparin Sod Inj 40 Mg/0.4 Ml Syringe SC 10/17/24 08:59 40 mg QDAY MIYA Administration Folic Acid 5 mg 10/06/24 09:00 10/08/24 07:43 Folic Acid 1 Mg Tablet PO 11/05/24 08:59 5 mg QDAY MIYA Administration Haloperidol Lactate 2.5 mg 10/04/24 15:31 10/07/24 21:37 Haloperidol Lact Inj 5 Mg/Ml Vial IV 10/09/24 15:30 2.5 mg Q8HR PRN Administration AGITATION (SEVERE) Ceftriaxone Sodium/Dextrose 1 gm in 50 mls @ 100 mls/hr 10/04/24 09:00 10/08/24 07:46 Rocephin/D5w 1gm Iv Premix IV 10/11/24 08:59 100 mls/hr QDAY MIYA Administration Potassium Chloride/Dextrose/Sod Cl 40 meq in 1,000 mls @ 125 mls/hr 10/05/24 12:30 10/08/24 02:05 Kcl 40 Meq/L In D5-1/2ns IV 11/04/24 12:29 125 mls/hr .Q8H MIYA Administration Labetalol HCl 200 mg 10/07/24 09:00 10/08/24 07:45 Labetalol 100 Mg Tablet PO 11/06/24 08:59 200 mg BID MIYA Administration Lamotrigine 100 mg 10/05/24 21:00 10/08/24 07:44 Lamotrigine 25 Mg Chew PO 11/04/24 20:59 100 mg BID MIYA Administration Magnesium Hydroxide 30 ml 10/04/24 11:56 Milk Of Magnesia Susp 30 Ml Udc PO 11/03/24 11:55 X1 PRN Constipation Protocol Melatonin 3 mg 10/06/24 21:35 10/07/24 21:18 Melatonin 3 Mg Tablet PO 11/05/24 21:34 3 mg HS MIYA Administration Methylprednisolone Sodium Succinate 16 mg 10/06/24 14:00 10/08/24 05:51 Methylprednisolone Sod Succ 40 Mg Vial IVP 10/12/24 09:14 16 mg Q8HR MIYA Administration Metoclopramide HCl 10 mg 10/05/24 12:00 10/08/24 05:48 Metoclopramide Inj 5 Mg/Ml Vial 2 Ml IVP 11/04/24 11:59 10 mg Q6HR MIYA Administration Protocol Pantoprazole Sodium 40 mg 10/03/24 09:00 10/08/24 07:43 Pantoprazole Inj 40 Mg Vial IVP 11/02/24 08:59 40 mg QDAY MIYA Administration Pyridoxine HCl 25 mg 10/03/24 14:00 10/08/24 05:55 Pyridoxine 50 Mg Tablet PO 11/02/24 13:59 25 mg TID MIYA Administration Sennosides 1 tab 10/03/24 05:37 10/07/24 08:23 Senna Tablet PO 11/02/24 05:36 1 tab QDAY PRN Administration constipation Protocol Simethicone 80 mg 10/03/24 11:30 10/07/24 04:58 Simethicone 80 Mg Chew PO 11/02/24 11:29 80 mg QID PRN Administration GAS
[2024-10-08 11:59] VITALS: BP 169/100; PULSE 101; RESP 16; TEMP 36.2; O2SAT 99
[2024-10-08] MEDS: HALOPERIDOL LACT INJ 5 MG/ML VIAL 2.5 MG IV (13:57)
--- NOTE | 2024-10-08 14:54 | PC.SS ---
Rounding note: pending low potassium, anticipate d/c tomorrow back home.
--- NOTE | 2024-10-08 17:08 | ESDS_ITS ---
<Statement entered by William Crenshaw MD - 10/13/24 14:40> I reviewed above note and agree with findings and plans. I have also personally examined the patient with medicine team and went over assessment and plan with medical team including internal grinding machine operator and resident physician. Planned Discharge Date 10/08/24 DS: Providers Provider Date of admission: 10/04/24 16:33 Primary care physician: Physician No Primary/Family Admitting Provider: Cale Medrano MD Attending Provider on Admission: William Crenshaw MD Consults: 10/05/24 08:22 Consult to Obstetrics Routine Comment: Consulting Provider: Saturnino Paul Instructions: Intractable N/V after multiple antiemetic agents, hx of BD and PTSD, 10 weeks Attending Provider on DC: Aneudy Arellano MD Discharging Provider: Aneudy Arellano MD DS: Diagnosis Problem List Completed Was Problem List Reviewed/Reconciled?: Yes Hospital Course Hospital Course Hospital course: Saima Yarbrough is a 29-year-old female with a past medical history of gestational diabetes, marijuana use, hypertension, PTSD, and bipolar disorder who presents with intractable nausea and vomiting x4 days prior to admission. She was discharged from the ED earlier in the night, however returned immediately due to the vomiting. Patient 10 weeks on admission, this being her second . Her symptoms were refractory to Zofran, promethazine, scopolamine, Benadryl, and pyridoxine and so UI UX ENGINEER was ultimately consulted who added Reglan ACHS and methylprednisolone 60 mg IV every 8 hours for 3 days. Additionally, patient was restarted on her lamotrigine but at 100 mg twice daily with Haldol as needed given her history of PTSD and bipolar disorder. Eventually patient's symptoms improved and she was able to tolerate regular meals without significant nausea or vomiting. Throughout hospital course K dropped down to 2.5 and required both p.o. and IV replenishment that stabilized after patient's symptoms started to become controlled. Patient received IV methylprednisolone for 3 days and given that her symptoms had improved, electrolytes were now within normal limits, she was deemed stable for discharge. She will be sent home with a steroid taper as well as instructions to continue with Reglan, promethazine, PPI, and to follow-up closely with her OB. Diagnoses during admission: #Intractable nausea and vomiting #Cyclic vomiting syndrome vs hyperemesis gravidarum #11 weeks #Hypokalemia, resolved #History of PTSD #History of anxiety #History of bipolar disorder #GERD #Sore throat #UTI #Leukocytosis #History of hypertension #Tobacco use #THC use Discharge instructions: ? Take prednisone 40 mg for 1 day -> 20 mg for 3 days -> 10 mg for 3 days -> 5 mg daily for 7 days (total 14 days) ? Take lamotrigine 100 mg twice daily, at least until you follow-up with your meat hanger - Can continue to take Promethazine suppository or oral as tolerated in addition to Reglan with meals PRN - Take Pantoprazole daily for your GERD like symptoms ? Continue taking all other home medications as prescribed ? Follow-up with PCP within 1-2 weeks of discharge ? Follow-up with meat hanger within 1-2 weeks of discharge ? Return to ED if symptoms worsen or recur - Stay hydrated with Gatorade and Pedialyte. ----- Plan discussed with attending physician Dr. Den Arellano MD PGY-1 Internal Medicine Time Spent with Patient Time attestation: Total time spent providing and/or coordinating discharge services: Time spent: Greater than 30 minutes Exam Vital Signs Temp Pulse Resp BP Pulse Ox O2 Del Method 97.2 F 101 H 16 169/100 H 99 Room Air 10/08/24 11:59 10/08/24 11:59 10/08/24 11:59 10/08/24 11:59 10/08/24 11:59 10/08/24 11:59 Narrative Exam General: AOx3, experiencing anxiety and discomfort from nausea and vomiting, able to speak full sentences HEENT: NC/AT, mucous membranes moist, bilateral sclera anicteric Cardiovascular: regular rate and rhythm, S1/S2 present, no murmurs appreciated Pulmonary: clear to auscultation bilaterally, no rales/rhonchi/wheezes Abdominal: soft, non-tender, non-distended, no rebound/guarding, normal bowel sounds present Musculoskeletal: normal ROM, no peripheral edema Skin: warm and dry, intact, no rashes Neuro: CN II-XII intact, no focal deficits Discharge Plan Plan Patient Disposition: HOME (Self Care) Patient condition on transfer: Stable Care Plan Goals: ? Take prednisone 40 mg for 1 day -> 20 mg for 3 days -> 10 mg for 3 days -> 5 mg daily for 7 days (total 14 days) ? Take lamotrigine 100 mg twice daily, at least until you follow-up with your meat hanger - Can continue to take Promethazine suppository or oral as tolerated in addition to Reglan with meals PRN - Take Pantoprazole daily for your GERD like symptoms ? Continue taking all other home medications as prescribed ? Follow-up with PCP within 1-2 weeks of discharge ? Follow-up with meat hanger within 1-2 weeks of discharge ? Return to ED if symptoms worsen or recur - Stay hydrated with Gatorade and Pedialyte. Prescriptions/Referrals Prescriptions/Med Rec: New prednisone 5 mg tablet 5 mg PO QDAY Qty: 31 0RF Taper: Prednisone Taper 40 mg DAILY for 1 Day and 0 Hour 20 mg DAILY for 3 Days and 0 Hour 10 mg DAILY for 3 Days and 0 Hour 5 mg DAILY for 5 Days and 0 Hour promethazine 25 mg tablet 25 mg PO QDAY Qty: 30 0RF metoclopramide HCl [Reglan] 10 mg tablet 10 mg PO ACHS PRN (Reason: nausea and vomiting) Qty: 30 0RF lamotrigine 100 mg tablet 100 mg PO BID Qty: 60 0RF pantoprazole [Protonix] 40 mg tablet,delayed release (DR/EC) 40 mg PO QDAY Qty: 30 0RF Continued labetalol 200 mg tablet 200 mg PO BID 30 Days Qty: 60 5RF Discontinued promethazine 25 mg suppository 25 mg PA Q6H MDD 4 PRN (Reason: nausea and vomiting) Qty: 12 1RF Referrals: No Primary/Family,Physician [Primary Care Provider] - Patient/Caregiver Discharge Instructions Other Discharge Diet Instructions: Stay hydrated with Gatorade and Pedialyte. Print Language: Slovenian Stand Alone Forms: Lynda Award Info., Patient Portal Info Letter Discharge Order Discharge Orders: Discharge (Routine); Ordered 10/08/24 Ordered By: Brenda Edwards Quality Discharge Quality Measures VTE prophylaxis
== END 2024-10-08 16:40 | disposition home or self-care (01) | DRG 566 ==
LOC: SERX 10-03 04:39 → SERHOLD 10-03 06:20 → S3NX 10-03 09:20
PROVIDERS: Student in an Organized Health Care Education/Training Program; Admitting Provider Internal Medicine; Emergency Provider Emergency Medicine; Visit Provider Internal Medicine
DX: O21.1 Hyperemesis gravidarum with metabolic disturbance (principal); O99.341 Other mental disorders complicating pregnancy, first trimester; F31.9 Bipolar disorder, unspecified; F43.10 Post-traumatic stress disorder, unspecified; O23.41 Unspecified infection of urinary tract in pregnancy, first trimester; F12.90 Cannabis use, unspecified, uncomplicated; O99.321 Drug use complicating pregnancy, first trimester; F17.210 Nicotine dependence, cigarettes, uncomplicated; Z3A.11 11 weeks gestation of pregnancy; O99.281 Endocrine, nutritional and metabolic diseases complicating pregnancy, first trimester; O99.331 Smoking (tobacco) complicating pregnancy, first trimester; O99.611 Diseases of the digestive system complicating pregnancy, first trimester; F41.9 Anxiety disorder, unspecified; K21.9 Gastro-esophageal reflux disease without esophagitis; O99.891 Other specified diseases and conditions complicating pregnancy; O16.1 Unspecified maternal hypertension, first trimester; Z86.32 Personal history of gestational diabetes; Z87.440 Personal history of urinary (tract) infections; Z56.0 Unemployment, unspecified; Z79.899 Other long term (current) drug therapy; Z88.6 Allergy status to analgesic agent; Z88.0 Allergy status to penicillin; Z88.8 Allergy status to other drugs, medicaments and biological substances; Z87.828 Personal history of other (healed) physical injury and trauma
CPT/HCPCS: 36415; 80053; 80069; 80307; 82010; 83735; 84100; 84132; 84439; 84443; 84484; 84702; 85025; 87086; 87811; 93005; 93225; 96361; 96365; 96372; 96374; 96375; 99285; G0378; J0696; J1200; J1630; J1650; J2405; J2470; J2550; J2765; J2919; J3475; J3480; J3490; J7030; J7042; J7120; J7999; A9270

== ENCOUNTER 2024-10-14 15:07 | Outpatient (AMB) | payer MEDICAID, SELFPAY ==
[2024-10-14 15:23] VITALS: BP 156/118; PULSE 105; RESP 18; TEMP 36.2; O2SAT 98
--- NOTE | 2024-10-14 15:23 | OBCLNT_ITS ---
Vital Signs 10/14/24 15:23 Weight 87.09 kg Weight Measurement Method Standing Scale BP 156/118 H Blood Pressure Source Automatic Cuff Blood Pressure Location Left Upper Arm Position Sitting Respiration 18 Pulse 105 H Pulse Source Monitor Temp 97.2 F Temp Source Oral Pulse Oximetry (%) 98 Oxygen Delivery Method Room Air Allergies/Home Meds Allergies & Medications Allergies clavulanic acid (From Augmentin) Allergy (Severe, Verified 10/14/24 15:24) burning sensation amoxicillin (From Augmentin) Adverse Reaction (Severe, Verified 10/14/24 15:24) burning sensation ibuprofen Adverse Reaction (Severe, Verified 10/14/24 15:24) DUE TO KIDNEYS Medication Reconciliation labetalol 200 mg tablet 200 mg PO BID hypertention 30 days #60 tabs 09/02/24 [Rx Confirmed 10/14/24] lamotrigine 100 mg tablet 100 mg PO BID #60 tabs 10/08/24 [Rx Confirmed 10/14/24] metoclopramide HCl 10 mg tablet (Reglan) 10 mg PO ACHS PRN nausea and vomiting #30 tabs 10/08/24 [Rx Confirmed 10/14/24] pantoprazole 40 mg tablet,delayed release (Protonix) 40 mg PO QDAY #30 tabs 10/08/24 [Rx Confirmed 10/14/24] prednisone 5 mg tablet 5 mg PO QDAY #31 tabs 10/08/24 [Rx Confirmed 10/14/24] promethazine 25 mg tablet 25 mg PO QDAY #30 tabs 10/08/24 [Rx Confirmed 10/14/24] nifedipine 30 mg tablet,extended release 24 hr (Procardia XL) 30 mg PO QDAY #30 tabs 10/14/24 [Rx] promethazine 25 mg rectal suppository 25 mg WI Q6H PRN nausea and vomiting #12 ea 10/14/24 [Rx] Intake Visit Data Collection New Patient or Established: Established Patient (seen at [facility] within 3 years) Reason for Visit:: OBC/ PATIENT IS VOMINTING Curriculum Manager Required: No Do You Feel Safe at Home: Yes Authorities Contacted: N/A PCP or OBGYN visit in last 3 months: Yes Date of Last PCP or OBGYN visit: 10/08/24 Hx Now: Yes Are you currently on any form of Control: No Pain Scale Used: Najera-Saleem/Numerical Pain scale:: 0 Smoking Status Smoking Status: Current some day smoker Cessation Counseling Provided: MASSIEL was advised that quitting smoking is the single most important factor to protect the health of themselves and their family. Discussed the benefits of quitting smoking with patient. Encouraged patient to quit smoking and provided Cessation assistance materials and resources. Tobacco Use: Cigarette Years smoked: 10 Are you interested in Quitting?: No Questionnaires Covid-19 Vaccine Questionnaire Has patient been vacinated for Covid-19 Have you been vacinated for Covid-19: Yes PHQ-9 PHQ-2 Over the last 2 weeks, how often have you been bothered by any of the following problems? 1. Little interest or pleasure in doing things: not at all 2. Feeling down, depressed, or hopeless: not at all Total score: 0 PHQ-9 3. Trouble falling or staying asleep, or sleeping too much: Not at all 4. Feeling tired or having little energy: Not at all 5. Poor appetite or overeating: Not at all 6. Feeling bad about yourself - or that you are a failure or have let yourself or your family down: Not at all 7. Trouble concentrating on things, such as reading the newspaper or watching television: Not at all 8. Moving or speaking so slowly that other people could have noticed? - Or the opposite - being so fidgety or restless that you have been moving around a lot more than usual: not at all 9. Thoughts that you would be better off or of hurting yourself in some way: Not at all Total score: 0 If you checked off any problems, how difficult have these problems made it for you to do your work, take care of things at home, or get along with other peo ple?: not difficult at all Source: Developed by Drs. Terry Gomez, Daria Russell, Tylor Mendoza and colleagues, with an educational maryam from [employer]. 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 Patient has poor dates. History of irregular menses. She thinks her last period might have been July 03, 2024. Patient has a history of anxiety and depression. And she plans to schedule an appointment with her behavioral health counselor. She has stopped taking her behavioral health meds. Patient does not remember what she has been taking. She takes Metropol all for high blood pressure. Patient also has chronic neck pain and she has been taking [place] for that but she states that since she had a positive test she stopped taking her. Currently she smokes an occasional cigarette through the week. And she is smoking marijuana. She denies any SAB complaints. Reports tiredness and breast tenderness. She is taking vitamins. OB panel was ordered. I ordered 1 hour GTT, hemoglobin A1c.hcg. CBC with differential and CHEM panel. Was ordered. 24-hour protein also was ordered. And ordered ultrasound for dates and viability. SAB precautions. Patient to start labetalol 200 twice daily gave her 60 with 5 refills. And patient will also schedule an earlier appointment with Dr. Escobar to follow-up on her chronic health issues. Return in 4 weeks OB check 09/23/24 -?-?-?-?-?-?-?-?-?-?-?-?- 9w 3d 95.481 kg 116/73 absent 8 patient stopped taking norco and metropol for hypertention. advised to P/U and start Labetolol. I reviewed current medication with patient. she will continue PNV daily. start Labetolol 200 bis as directed, OK to continue with Ambien q hs for sleep. and continue Lamotrigine for PTSD and Bipolar. patient is also taking zofran as needed for nausea and pepcid for acid reflux. I discussed comfort measure for increased acid and N/V. we discussed SAB precaution. discussed dates, sono pending due to insurance problem. labs discussed. keep appointment with PCP/Dr Tirado in 2 week. OB check in 4 week for NIPT 10/14/24 -?-?-?-?-?--?-?-?-?-?-?-?- 12w 3d 87.09 kg 156/118 absent unknown 12 156 absent Patient discharge fro hospital. inpatient x 5 days for hyperemesis, DC home on Reglan 10mg daily. zofran and phenergan 25 mg supp tid. unable to keep down small bits of food and fluid. vomits constantly all day. she has not started phenergan. poor compliance with labetolol . consult with OB regarding BP. patient denies PIH complaints, no sab complaints NIPT and alison er screen. schedule MFM referral, start procardia 30mf XL immediately and RTC with OB 10/16/24 for BP check. review comfort measure for N/V, sab precaution NIPT and carrier screen. esther peña MFM referral, start procardia 30mf XL immediately and RTC with OB 10/16/24 for BP check. review comfort measure for N/V, sab precaution, NIPT, carrier screen IVONNE Calculator Estimated Delivery Date Method Current WG Current Estimate 04/25/25 Ultrasound #1 12w 3d Other Estimates 04/09/25 LMP (Uncertain) 14w 5d Notes Visit Date: 10/14/24 Last Updated by: Chika Jacobo CNM 10/14: start procardia 30mg XL. continue Labetolol 200 bid Visit Date: 09/23/24 Last Updated by: Chika Jacobo CNM 29 yo iup 8 week poor dates. HX of: PTSD, Anxiety. BiPolar and hypertention. . LMP 07/03/24. EDC 04/09/25. O+,abs-,rpr;;nr, rub NI, hbsag-,hiv-,HC-, GC/CT-, early 1 hr GTT was 93 A1c: 5.7 Office Procedures OB Clinic LOC & Office Proc's Nursing/Assessment Patient Status: Established Patient OB Clinic Nursing Assessment: Medication Reconciliation, Update PMH in EMR and Vital Signs OB Clinic Coordination of Care: Education Complex Pt/Fam, Consent,records obtained, informed consent, Lab and Imaging orders and Staff clarify orders Special Needs: Heart tones Established Patient Charge Established Patient Point Assignment: 110 Established Patient Point Charge: EP Level 3 (80-115) Assessment & Plan Diagnosis / Problem List (1) Cyclical vomiting, intractable: Status: Acute (2) High-risk in first trimester: Status: Acute Plan sched MFM referral. sab precaution, discuss comfort measure for hyperemesis. continue zofran and reglan as directed. patient to P/U phenergan supp and follow direction, continue Labetolol 200 mg bid, reviewed compliance. consult with OB, start Procardia 30mg XL today, NIPT, carrier screen today Additional Plan Follow Up: 2 Days (BP check)
== END 2024-10-14 15:58 | disposition home or self-care (01) ==
LOC: HODSOBC 15:07
PROVIDERS: Supervising Provider Advanced Practice Midwife; Visit Provider Advanced Practice Midwife
DX: O09.891 Supervision of other high risk pregnancies, first trimester (principal); O21.0 Mild hyperemesis gravidarum; O10.911 Unspecified pre-existing hypertension complicating pregnancy, first trimester; Z3A.12 12 weeks gestation of pregnancy; O99.331 Smoking (tobacco) complicating pregnancy, first trimester; F17.210 Nicotine dependence, cigarettes, uncomplicated; Z71.6 Tobacco abuse counseling; Z79.899 Other long term (current) drug therapy; Z91.148 Patient's other noncompliance with medication regimen for other reason
CPT/HCPCS: 99213; G0463

== ENCOUNTER 2024-10-16 14:29 | Outpatient (AMB) | payer MEDICAID, SELFPAY ==
[2024-10-16 14:40] VITALS: BP 124/82; PULSE 108; RESP 22; TEMP 36.5; O2SAT 97; BMI 36.7
--- NOTE | 2024-10-16 14:40 | OBCLNT_ITS ---
Vital Signs 10/16/24 14:40 Height 1.55 m Height Method Stated Weight 88.167 kg Weight Measurement Method Standing Scale BMI 36.7 BP 124/82 Blood Pressure Source Automatic Cuff Blood Pressure Location Right Upper Arm Position Sitting Respiration 22 H Pulse 108 H Pulse Source Monitor Temp 97.7 F Temp Source Oral Pulse Oximetry (%) 97 Oxygen Delivery Method Room Air Allergies/Home Meds Allergies & Medications Allergies clavulanic acid (From Augmentin) Allergy (Severe, Verified 10/27/24 10:04) burning sensation amoxicillin (From Augmentin) Adverse Reaction (Severe, Verified 10/27/24 10:04) burning sensation ibuprofen Adverse Reaction (Severe, Verified 10/27/24 10:04) DUE TO KIDNEYS Medication Reconciliation labetalol 200 mg tablet 200 mg PO BID hypertention 30 days #60 tabs 09/02/24 [Rx Confirmed 10/27/24] lamotrigine 100 mg tablet 100 mg PO BID #60 tabs 10/08/24 [Rx Confirmed 10/27/24] metoclopramide HCl 10 mg tablet (Reglan) 10 mg PO ACHS PRN nausea and vomiting #30 tabs 10/08/24 [Rx Confirmed 10/27/24] pantoprazole 40 mg tablet,delayed release (Protonix) 40 mg PO QDAY #30 tabs 10/08/24 [Rx Confirmed 10/27/24] prednisone 5 mg tablet 5 mg PO QDAY #31 tabs 10/08/24 [Rx Confirmed 10/27/24] nifedipine 30 mg tablet,extended release 24 hr (Procardia XL) 30 mg PO QDAY #30 tabs 10/14/24 [Rx Confirmed 10/27/24] promethazine 25 mg tablet 25 mg PO Q6H PRN nausea and vomiting 30 days #120 tabs 10/16/24 [Rx Confirmed 10/27/24] Intake Visit Data Collection New Patient or Established: Established Patient (seen at [facility] within 3 years) Reason for Visit:: CARE Seen by Clinical Staff ONLY (RN/MA): No Director Distribution Required: No Do You Feel Safe at Home: Yes Authorities Contacted: N/A PCP or OBGYN visit in last 3 months: Yes Hx Now: Yes Are you currently on any form of Control: No Pain Present Currently: Yes Pain Location: Abdomen Pain Scale Used: Najera-Saleem/Numerical Pain scale:: 7 Smoking Status Smoking Status: Current some day smoker Cessation Counseling Provided: MASSIEL was advised that quitting smoking is the single most important factor to protect the health of themselves and their family. Discussed the benefits of quitting smoking with patient. Encouraged patient to quit smoking and provided Cessation assistance materials and resources. Tobacco Use: Cigarette Years smoked: 10 Are you interested in Quitting?: Yes Would you like additional Smoking Cessation Counseling?: Yes Questionnaires Covid-19 Vaccine Questionnaire Has patient been vacinated for Covid-19 Have you been vacinated for Covid-19: No PHQ-9 PHQ-2 Over the last 2 weeks, how often have you been bothered by any of the following problems? 1. Little interest or pleasure in doing things: not at all 2. Feeling down, depressed, or hopeless: not at all Total score: 0 PHQ-9 3. Trouble falling or staying asleep, or sleeping too much: Not at all 4. Feeling tired or having little energy: Not at all 5. Poor appetite or overeating: Not at all 6. Feeling bad about yourself - or that you are a failure or have let yourself or your family down: Not at all 7. Trouble concentrating on things, such as reading the newspaper or watching television: Not at all 8. Moving or speaking so slowly that other people could have noticed? - Or the opposite - being so fidgety or restless that you have been moving around a lot more than usual: not at all 9. Thoughts that you would be better off or of hurting yourself in some way: Not at all Total score: 0 Source: Developed by Drs. Terry Gomez, Daria Russell, Tylor Mendoza and colleagues, with an educational maryam from [employer]. Depression screen completed yes 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 Feel Safe at Home: Yes [employer]: Past Medical History Past Medical History: No Hx Neurological Disorders, Yes Hx Cardiac Disorders, Yes Hx Hypertension, No Hx Blood Disorders, No Hx Anemia, Yes Hx Gastrointestinal Disorders, No Hx Renal Disease, No Hx Diabetes Mellitus Type 1 and No Hx Diabetes Mellitus Type 2 History of Present Illness HPI Narrative Massiel Yarbrough, , presents for routine visit at 12 weeks and 5 days gestation. Patient reports severe nausea. Denies cramping and abdominal pain. Denies BREWER, VC, and epigastric pain. - Massiel Yarbrough is a 12 weeks and 5 days woman () presenting for visit with severe hyperemesis gravidarum. - Estimated due date: April 25, 2025 - Recent hospital admission: - 5-day stay for severe hyperemesis gravidarum - Treated with methylprednisolone IV - Discharged last - Current symptoms: - Severe nausea - Low potassium - Constipation - Gas - Medication regimen: - Current medications: Phenergan, Zofran, labetalol, lamotrigine (for bipolar anxiety), Reglan, Procardia, Protonix, and prednisone - Reports running out of prednisone - Difficulty affording Phenergan suppositories - Occasional use of Ambien for sleep - Uses Tums and Pepsi for symptom relief - Social factors: - Requested doctor's note for welfare benefits due to -related issues Care OB Visit Log OB Flowsheet Initial Weight: Not Recorded Date -?-?-?-?-?-?-?-?-?-?-?-?- EGA Weight BP Alb Glu CTX Pres Fundal ht FHR Mov Dilation Station Effacement Hx Notes Visit Note 09/02/24 -?-?-?-?-?-?-?-?-?-?-?-?- 6w 3d 94.461 kg 127/70 absent 29-year-old 2 para 0 for first OB visit. Patient has poor dates. History of irregular menses. She thinks her last period might have been July 03, 2024. Patient has a history of anxiety and depression. And she plans to schedule an appointment with her behavioral health counselor. She has stopped taking her behavioral health meds. Patient does not remember what she has been taking. She takes Metropol all for high blood pressure. Patient also has chronic neck pain and she has been taking [place] for that but she states that since she had a positive test she stopped taking her. Currently she smokes an occasional cigarette through the week. And she is smoking marijuana. She denies any SAB complaints. Reports tiredness and breast tenderness. She is taking vitamins. OB panel was ordered. I ordered 1 hour GTT, hemoglobin A1c.hcg. CBC with differential and CHEM panel. Was ordered. 24-hour protein also was ordered. And ordered ultrasound for dates and viability. SAB precautions. Patient to start labetalol 200 twice daily gave her 60 with 5 refills. And patient will also schedule an earlier appointment with Dr. Escobar to follow-up on her chronic health issues. Return in 4 weeks OB check 09/23/24 -?-?-?-?-?-?-?-?-?-?-?-?- 9w 3d 95.481 kg 116/73 absent 8 patient stopped taking norco and metropol for hypertention. advised to P/U and start Labetolol. I reviewed current medication with patient. she will continue PNV daily. start Labetolol 200 bis as directed, OK to continue with Ambien q hs for sleep. and continue L amotrigine for PTSD and Bipolar. patient is also taking zofran as needed for nausea and pepcid for acid reflux. I discussed comfort measure for increased acid and N/V. we discussed SAB precaution. discussed dates, sono pending due to insurance problem. labs discussed. keep appointment with PCP/Dr Tirado in 2 week. OB check in 4 week for NIPT 10/14/24 -?-?-?-?-?-?-?-?-?-?-?-?- 12w 3d 87.09 kg 156/118 absent unknown 12 156 absent Patient discharge fro hospital. inpatient x 5 days for hyperemesis, DC home on Reglan 10mg daily. zofran and phenergan 25 mg supp tid. unable to keep down small bits of food and fluid. vomits constantly all day. she has not started phenergan. poor compliance with labetolol . consult with OB regarding BP. patient denies PIH complaints, no sab complaints NIPT and carrier screen. schedule MFM referral, start procardia 30mf XL immediately and RTC with OB 10/16/24 for BP check. review comfort measure for N/V, sab precaution NIPT and carrier screen. esther peña MFM referral, start procardia 30mf XL immediately and RTC with OB 10/16/24 for BP check. review comfort measure for N/V, sab precaution, NIPT, carrier screen 10/16/24 -?-?-?-?-?-?-?-?-?-?-?-?- 12w 5d 88.167 kg 124/82 Disregard note in Hx notes box (charted on wrong pt), correct note is here: 32yo @12w5d, severe hyperemesis (rec ent 5-day admission), low K+, chronic HTN on labetalol/Procardia, bipolar disorder on lamotrigine, insomnia. Plan: continue meds (Phenergan, Zofran, Reglan, Protonix, prednisone), refill prescriptions, labs for genetic testing, welfare note, check FHR by josé miguel when room available. 10/27/24 -?-?-?-?-?-?-?-?-?-?-?-?- 14w 2d 93.213 kg 108/72 absent unknown 14 156 absent doing alittle better. compliant with labetolol 100 bid and nifedipine 30mg XL daily, patient continue on omeprizole and pepcid for indigestion, taking phenergan 25 mg po and zofran for nausea. eating has improved and vomiting less, denies sab complaints, MFM appointment pending continue cur rent plan of management, nifedipine 30 XL daily and labeolol BID, comfort measure for N/V, sab precaution, patient will see OB in november. RTC 4 week IVONNE Calculator Estimated Delivery Date Method Current WG Current Estimate 04/25/25 Ultrasound #1 14w 4d Other Estimates 04/09/25 LMP (Uncertain) 16w 6d Notes Visit Date: 10/27/24 Last Updated by: Chika Jacobo CNM 29 yo . ivonne: 04/25/25. O+,abs-, rpr;;nr, rub IM, hiv-,HC-, HBSAG-, gc/ct-, A1: 5.7 Visit Date: 10/14/24 Last Updated by: Chika Jacobo CNM 6/3: start procardia 30mg XL. continue Labetolol 200 bid Visit Date: 09/23/24 Last Updated by: Chika Jacobo CNM 29 yo iup 8 week poor dates. HX of: PTSD, Anxiety. BiPolar and hypertention. . LMP 2/20/25. EDC 04/09/25. O+,abs-,rpr;;nr, rub NI, hbsag-,hiv-,HC-, GC/CT-, early 1 hr GTT was 93 A1c: 5.7 Exam General General Appearance: alert, in no apparent distress and healthy appearing Head Head exam: atraumatic Neck Neck exam: Present normal inspection and trachea midline Chest Chest inspection: Present normal inspection and symmetric chest wall rise External exam: Present normal external exam; Absent tenderness Neuro Neurological exam: Present oriented X3 Psych Psychiatric exam: Present normal affect and normal mood Office Procedures OB Clinic LOC & Office Proc's Nursing/Assessment Patient Status: Established Patient OB Clinic Nursing Assessment: Medication Reconciliation, Update PMH in EMR and Vital Signs OB Clinic Coordination of Care: Complex Care and Chronic Disease 1-5, Consent,records obtained, informed consent, Education Simp Pt/Fam, Lab and Imaging orders, Results/Orders obtained and Staff clarify orders Special Needs: Heart tones Established Patient Charge Established Patient Point Assignment: 135 Established Patient Point Charge: EP Level 4 (120-155) Assessment & Plan Diagnosis / Problem List (1) GERD (gastroesophageal reflux disease): Status: Acute (2) Hypokalemia due to excessive gastrointestinal loss of potassium: Status: Acute (3) High-risk in first trimester: Status: Acute Plan Massiel Yarbrough, 2 para 1, presenting at 12 weeks and 5 days gestation with severe hyperemesis gravidarum, recently discharged from hospital after 5- day stay for IV methylprednisolone treatment. Hyperemesis Gravidarum Assessment: Patient presents with severe hyperemesis gravidarum, requiring recent hospitalization for 5 days with IV methylprednisolone treatment. Currently experiencing severe nausea, low potassium, constipation, and gas. Patient reports running out of prednisone and difficulty affording Phenergan suppositories. Using Tums and Pepsi for symptom relief. Plan: - Continue current medications: Phenergan, Zofran, Reglan, Protonix, prednisone - Refill all medications - Provide new lab orders for genetic testing - Check heartbeat via ultrasound when room becomes available - Provide doctor's note for welfare benefits due to -related issues Chronic Hypertension in Assessment: Patient is currently taking labetalol and Procardia, indicating pre- existing hypertension being managed during . Plan: - Continue labetalol and Procardia as prescribed Bipolar Anxiety Disorder Assessment: Patient has a history of bipolar anxiety disorder, currently managed with lamotrigine. Plan: - Continue lamotrigine as prescribed Insomnia Assessment: Patient reports occasional use of Ambien for sleep difficulties. Plan: - Advise that short-term use of Ambien is acceptable, but not recommended for long-term use due to potential effects on growth and brain development Heart Rate (FHR) and Dates/Viability Verified Review Labs: Confirm results and address any abnormalities with treatment or referrals. History & Symptoms: Ask about nausea, vomiting, bleeding, or cramping. Screen for mental health concerns. Physical Exam: Check weight, blood pressure, and heart rate (via Doppler). Education: Discuss nutrition, exercise, and avoiding harmful substances. Review safe medications and warning signs (e.g., severe pain, bleeding). Screening Tests: Offer genetic screening if not done. Discuss upcoming anatomy scan (18-20 weeks). Plan: Schedule next visit (typically 4 weeks later) and any needed tests. Keep it supportive, address concerns, and ensure clear follow-up instructions.
== END 2024-10-16 15:31 | disposition home or self-care (01) ==
LOC: HODSOBC 14:29
PROVIDERS: Supervising Provider Obstetrics & Gynecology; Visit Provider Obstetrics & Gynecology
DX: O09.891 Supervision of other high risk pregnancies, first trimester (principal); Z3A.12 12 weeks gestation of pregnancy; O21.1 Hyperemesis gravidarum with metabolic disturbance; O10.911 Unspecified pre-existing hypertension complicating pregnancy, first trimester; G47.00 Insomnia, unspecified; K21.9 Gastro-esophageal reflux disease without esophagitis; O99.611 Diseases of the digestive system complicating pregnancy, first trimester; O99.341 Other mental disorders complicating pregnancy, first trimester; F31.9 Bipolar disorder, unspecified; F41.9 Anxiety disorder, unspecified; Z79.899 Other long term (current) drug therapy
CPT/HCPCS: 99214; G0463

== ENCOUNTER 2024-10-27 09:22 | Outpatient (AMB) | payer MEDICAID, SELFPAY ==
[2024-10-27 10:03] VITALS: BP 108/72; PULSE 88; RESP 17; TEMP 36.8; O2SAT 98; BMI 38.7
--- NOTE | 2024-10-27 10:03 | OBCLNT_ITS ---
Vital Signs 10/27/24 10:03 Height 1.55 m Height Method Stated Weight 93.213 kg Weight Measurement Method Standing Scale BMI 38.7 BP 108/72 Blood Pressure Source Automatic Cuff Blood Pressure Location Right Upper Arm Position Sitting Respiration 17 Pulse 88 Pulse Source Monitor Temp 98.2 F Temp Source Temporal Artery Scan Pulse Oximetry (%) 98 Oxygen Delivery Method Room Air Allergies/Home Meds Allergies & Medications Allergies clavulanic acid (From Augmentin) Allergy (Severe, Verified 10/27/24 10:04) burning sensation amoxicillin (From Augmentin) Adverse Reaction (Severe, Verified 10/27/24 10:04) burning sensation ibuprofen Adverse Reaction (Severe, Verified 10/27/24 10:04) DUE TO KIDNEYS Medication Reconciliation labetalol 200 mg tablet 200 mg PO BID hypertention 30 days #60 tabs 09/02/24 [Rx Confirmed 10/27/24] lamotrigine 100 mg tablet 100 mg PO BID #60 tabs 10/08/24 [Rx Confirmed 10/27/24] metoclopramide HCl 10 mg tablet (Reglan) 10 mg PO ACHS PRN nausea and vomiting #30 tabs 10/08/24 [Rx Confirmed 10/27/24] pantoprazole 40 mg tablet,delayed release (Protonix) 40 mg PO QDAY #30 tabs 10/08/24 [Rx Confirmed 10/27/24] prednisone 5 mg tablet 5 mg PO QDAY #31 tabs 10/08/24 [Rx Confirmed 10/27/24] nifedipine 30 mg tablet,extended release 24 hr (Procardia XL) 30 mg PO QDAY #30 tabs 10/14/24 [Rx Confirmed 10/27/24] promethazine 25 mg tablet 25 mg PO Q6H PRN nausea and vomiting 30 days #120 tabs 10/16/24 [Rx Confirmed 10/27/24] Intake Visit Data Collection New Patient or Established: Established Patient (seen at [facility] within 3 years) Reason for Visit:: OBC Do You Feel Safe at Home: Yes Authorities Contacted: N/A PCP or OBGYN visit in last 3 months: Yes Smoking Status Smoking Status: Current some day smoker Cessation Counseling Provided: MASSIEL was advised that quitting smoking is the single most important factor to protect the health of themselves and their family. Discussed the benefits of quitting smoking with patient. Encouraged patient to quit smoking and provided Cessation assistance materials and resources. Tobacco Use: Cigarette Years smoked: 10 Are you interested in Quitting?: No Questionnaires Covid-19 Vaccine Questionnaire Has patient been vacinated for Covid-19 Have you been vacinated for Covid-19: No PHQ-9 PHQ-2 Over the last 2 weeks, how often have you been bothered by any of the following problems? 1. Little interest or pleasure in doing things: not at all 2. Feeling down, depressed, or hopeless: not at all Total score: 0 PHQ-9 3. Trouble falling or staying asleep, or sleeping too much: Not at all 4. Feeling tired or having little energy: Not at all 5. Poor appetite or overeating: Not at all 6. Feeling bad about yourself - or that you are a failure or have let yourself or your family down: Not at all 7. Trouble concentrating on things, such as reading the newspaper or watching television: Not at all 8. Moving or speaking so slowly that other people could have noticed? - Or the opposite - being so fidgety or restless that you have been moving around a lot more than usual: not at all 9. Thoughts that you would be better off or of hurting yourself in some way: Not at all Total score: 0 If you checked off any problems, how difficult have these problems made it for you to do your work, take care of things at home, or get along with other people?: not difficult at all Source: Developed by Drs. Terry Gomez, Daria Russell, Tylor Mendoza and colleagues, with an educational maryam from [employer]. Depression screen completed yes 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 Feel Safe at Home: Yes [employer] E[employer]: Past Medical History Past Medical History: No Hx Neurological Disorders, Yes Hx Cardiac Disorders, Yes Hx Hypertension, No Hx Blood Disorders, No Hx Anemia, Yes Hx Gastrointestinal Disorders, No Hx Renal Disease, No Hx Diabetes Mellitus Type 1 and No Hx Diabetes Mellitus Type 2 Care OB Visit Log OB Flowsheet Initial Weight: Not Recorded Date -?-?-?-?-?-?-?-?-?-?-?-?- EGA Weight BP Alb Glu CTX Pres Fundal ht FHR Mov Dilation Station Effacement Hx Notes Visit Note 09/02/24 -?-?-?-?-?-?-?-?-?-?-?-?- 6w 3d 94.461 kg 127/70 absent 29-year-old 2 para 0 for first OB visit. Patient has poor dates. History of irregular menses. She thinks her last period might have been July 03, 2024. Patient has a history of anxiety and depression. And she plans to schedule an appointment with her behavioral health counselor. She has stopped taking her behavioral health meds. Patient does not remember what she has been taking. She takes Metropol all for high blood pressure. Patient also has chronic neck pain and she has been taking [place] for that but she states that since she had a positive test she stopped taking her. Currently she smokes an occasional cigarette through the week. And she is smoking marijuana. She denies any SAB complaints. Reports tiredness and breast tenderness. She is taking vitamins. OB panel was ordered. I ordered 1 hour GTT, hemoglobin A1c.hcg. CBC with differential and CHEM panel. Was ordered. 24-hour protein also was ordered. And ordered ultrasound for dates and viability. SAB precautions. Patient to start labetalol 200 twice daily gave her 60 with 5 refills. And patient will also schedule an earlier appointment with Dr. Escobar to follow-up on her chronic health issues. Return in 4 weeks OB check 09/23/24 -?-?-?-?-?-?-?--?-?-?-?-?- 9w 3d 95.481 kg 116/73 absent 8 patient stopped taking norco and metropol for hypertention. advised to P/U and start Labetolol. I reviewed current medication with patient. she will continue PNV daily. start Labetolol 200 bis as directed, OK to continue with Ambien q hs for sleep. and continue Lamotrigine for PTSD and Bipolar. patient is also taking zofran as needed for nausea and pepcid for acid reflux. I discussed comfort measure for increased acid and N/V. we discussed SAB precaution. discussed dates, sono pending due to insurance problem. labs discussed. keep appointment with PCP/Dr Tirado in 2 week. OB check in 4 week for NIPT 10/14/24 -?-?-?-?-?-?-?-?-?-?-?-?- 12w 3d 87.09 kg 156/118 absent unknown 12 156 absent Patient discharge fro hospital. inpatient x 5 days for hyperemesis, DC home on Reglan 10mg daily. zofran and phenergan 25 mg supp tid. unable to keep down small bits of food and fluid. vomits constantly all day. she has not started phenergan. poor compliance with labetolol . consult with OB regarding BP. patient denies PIH complaints, no sab complaints NIPT and carrier screen. schedule MFM referral, start procardia 30mf XL immediately and RTC with OB 10/16/24 for BP check. review comfort measure for N/V, sab precaution NIPT and carrier screen. esther peña MFM referral, start procardia 30mf XL immediately and RTC with OB 10/16/24 for BP check. review comfort measure for N/V, sab precaution, NIPT, carrier screen 10/16/24 -?-?-?-?-?-?--?-?-?-?-?-?- 12w 5d 88.167 kg 124/82 Disregard note in Hx notes box (charted on wrong pt), correct note is here: 32yo @12w5d, severe hyperemesis (rec ent 5-day admission), low K+, chronic HTN on labetalol/Procardia, bipolar disorder on lamotrigine, insomnia. Plan: continue meds (Phenergan, Zofran, Reglan, Protonix, prednisone), refill prescr iptions, labs for genetic testing, welfare note, check FHR by josé miguel when room available. 10/27/24 -?-?-?-?-?-?-?-?-?-?-?-?- 14w 2d 93.213 kg 108/72 absent unknown 14 156 absent doing alittle better. compliant with labetolol 100 bid and nifedipine 30mg XL daily, patient continue on omeprizole and pepcid for indigestion, taking phenergan 25 mg po and zofran for nausea. eating has improved and vomiting less, denies sab complaints, MFM appointment pending continue cur rent plan of management, nifedipine 30 XL daily and labeolol BID, comfort measure for N/V, sab precaution, patient will see OB in november. RTC 4 week IVONNE Calculator Estimated Delivery Date Method Current WG Current Estimate 04/25/25 Ultrasound #1 14w 2d Other Estimates 04/09/25 LMP (Uncertain) 16w 4d Notes Visit Date: 10/27/24 Last Updated by: Chika Jacobo CNM 29 yo . ivonne: 04/25/25. O+,abs-, rpr;;nr, rub IM, hiv-,HC-, HBSAG-, gc/ct-, A1: 5.7 Visit Date: 10/14/24 Last Updated by: Chika Jacobo CNM 10/14: start procardia 30mg XL. continue Labetolol 200 bid Visit Date: 09/23/24 Last Updated by: Chika Jacobo CNM 29 yo iup 8 week poor dates. HX of: PTSD, Anxiety. BiPolar and hypertention. . LMP 07/03/24. EDC 04/09/25. O+,abs-,rpr;;nr, rub NI, hbsag- ,hiv-,HC-, GC/CT-, early 1 hr GTT was 93 A1c: 5.7 Office Procedures OB Clinic LOC & Office Proc's Nursing/Assessment Patient Status: Established Patient OB Clinic Nursing Assessment: Medication Reconciliation, Update PMH in EMR and Vital Signs OB Clinic Coordination of Care: Complex Care and Chronic Disease 1-5, Consent,records obtained, informed consent, Education Simp Pt/Fam and Staff clarify orders Special Needs: Heart tones Established Patient Charge Established Patient Point Assignment: 115 Established Patient Point Charge: EP Level 3 (80-115) Assessment & Plan Diagnosis / Problem List (1) GERD (gastroesophageal reflux disease): Status: Acute (2) Cyclical vomiting, intractable: Status: Acute (3) High-risk in first trimester: Status: Acute Plan continue nifedipine 30mg XL and labetolol 300 bid, continue omeprizole and pepcid for indigestion and zofran and phenergan as needed for nausea, smaller meals and comfort measure. discuss danger s/s. mfm pending. rtc 4 week obc Additional Plan Follow Up: 4 Weeks (obc)
== END 2024-10-27 10:27 | disposition home or self-care (01) ==
LOC: HODSOBC 09:22
PROVIDERS: PCP Advanced Practice Midwife; Referring Provider Advanced Practice Midwife; Supervising Provider Advanced Practice Midwife; Visit Provider Advanced Practice Midwife
DX: O09.892 Supervision of other high risk pregnancies, second trimester (principal); O21.0 Mild hyperemesis gravidarum; Z3A.14 14 weeks gestation of pregnancy; O99.332 Smoking (tobacco) complicating pregnancy, second trimester; F17.210 Nicotine dependence, cigarettes, uncomplicated; Z71.6 Tobacco abuse counseling; O10.912 Unspecified pre-existing hypertension complicating pregnancy, second trimester; Z79.899 Other long term (current) drug therapy; O99.342 Other mental disorders complicating pregnancy, second trimester; F31.9 Bipolar disorder, unspecified; F43.10 Post-traumatic stress disorder, unspecified; F41.9 Anxiety disorder, unspecified
CPT/HCPCS: 99213; G0463

== ENCOUNTER 2024-11-19 10:09 | Outpatient (AMB) | payer MEDICAID, SELFPAY ==
--- NOTE | 2024-11-19 10:27 | OBCLNT_ITS ---
Vital Signs 11/19/24 10:28 Height 1.55 m Height Method Stated Weight 96.388 kg Weight Measurement Method Standing Scale BMI 40.1 BP 127/87 H Blood Pressure Source Automatic Cuff Blood Pressure Location Right Upper Arm Position Sitting Respiration 17 Pulse 93 Pulse Source Monitor Temp 98.4 F Temp Source Temporal Artery Scan Pulse Oximetry (%) 96 Oxygen Delivery Method Room Air Allergies/Home Meds Allergies & Medications Allergies clavulanic acid (From Augmentin) Allergy (Severe, Verified 01/14/25 11:44) burning sensation amoxicillin (From Augmentin) Adverse Reaction (Severe, Verified 01/14/25 11:44) burning sensation ibuprofen Adverse Reaction (Severe, Verified 01/14/25 11:44) DUE TO KIDNEYS Medication Reconciliation labetalol 200 mg tablet 200 mg PO BID hypertention 30 days #60 tabs 09/02/24 [Rx Confirmed 01/14/25] lamotrigine 100 mg tablet 100 mg PO BID #60 tabs 10/08/24 [Rx Confirmed 01/14/25] metoclopramide HCl 10 mg tablet (Reglan) 10 mg PO ACHS PRN nausea and vomiting #30 tabs 10/08/24 [Rx Confirmed 01/14/25] pantoprazole 40 mg tablet,delayed release (Protonix) 40 mg PO QDAY #30 tabs 10/08/24 [Rx Confirmed 01/14/25] prednisone 5 mg tablet 5 mg PO QDAY #31 tabs 10/08/24 [Rx Confirmed 01/14/25] nifedipine 30 mg tablet,extended release 24 hr (Procardia XL) 30 mg PO QDAY #30 tabs 10/14/24 [Rx Confirmed 01/14/25] bupropion HCl 150 mg 24 hr tablet, extended release (Wellbutrin XL) 150 mg PO QAM 30 days #30 tabs 11/19/24 [Rx Confirmed 01/14/25] nicotine 14 mg/24 hr daily transdermal patch 1 patch transdermal QDAY 28 days #28 ea 11/19/24 [Rx Confirmed 01/14/25] Intake Visit Data Collection New Patient or Established: Established Patient (seen at [facility] within 3 years) Reason for Visit:: OBC Seen by Clinical Staff ONLY (RN/MA): No Records And Information Manager Required: No Do You Feel Safe at Home: Yes Authorities Contacted: N/A PCP or OBGYN visit in last 3 months: Yes Date of Last PCP or OBGYN visit: 10/27/24 Hx Now: Yes Are you currently on any form of Control: No Pain Present Currently: Yes Pain Location: Back Pain Scale Used: Najera-Saleem/Numerical Pain scale:: 8 Smoking Status Smoking Status: Current some day smoker Cessation Counseling Provided: MASSIEL was advised that quitting smoking is the single most important factor to protect the health of themselves and their family. Discussed the benefits of quitting smoking with patient. Encouraged patient to quit smoking and provided Cessation assistance materials and resources. Tobacco Use: Cigarette Years smoked: 15 Are you interested in Quitting?: Yes Would you like additional Smoking Cessation Counseling?: Yes Questionnaires Covid-19 Vaccine Questionnaire Has patient been vacinated for Covid-19 Have you been vacinated for Covid-19: No PHQ-9 PHQ-2 Over the last 2 weeks, how often have you been bothered by any of the following problems? 1. Little interest or pleasure in doing things: several days 2. Feeling down, depressed, or hopeless: several days Total score: 2 PHQ-9 3. Trouble falling or staying asleep, or sleeping too much: Not at all 4. Feeling tired or having little energy: Not at all 5. Poor appetite or overeating: Not at all 6. Feeling bad about yourself - or that you are a failure or have let yourself or your family down: Not at all 7. Trouble concentrating on things, such as reading the newspaper or watching television: Not at all 8. Moving or speaking so slowly that other people could have noticed? - Or the opposite - being so fidgety or restless that you have been moving around a lot more than usual: not at all 9. Thoughts that you would be better off or of hurting yourself in some way: Not at all Total score: 2 If you checked off any problems, how difficult have these problems made it for you to do your work, take care of things at home, or get along with other people?: not difficult at all Source: Developed by Drs. Terry Gomez, Daria Russell, Tylor Mendoza and colleagues, with an educational maryam from [employer]. 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 Patient has poor dates. History of irregular menses. She thinks her last period might have been July 03, 2024. Patient has a history of anxiety and depression. And she plans to schedule an appointment with her behavioral health counselor. She has stopped taking her behavioral health meds. Patient does not remember what she has been taking. She takes Metropol all for high blood pressure. Patient also has chronic neck pain and she has been taking No rco for that but she states that since she had a positive test she stopped taking her. Currently she smokes an occasional cigarette through the week. And she is smoking marijuana. She denies any SAB complaints. Reports tiredness and breast tenderness. She is taking vitamins. OB panel was ordered. I ordered 1 hour GTT, hemoglobin A1c.hcg. CBC with differential and CHEM panel. Was ordered. 24-hour protein also was ordered. And ordered ultrasound for dates and viability. SAB precautions. Patient to start labetalol 200 twice daily gave her 60 with 5 refills. And patient will also schedule an earlier appointment with Dr. Escobar to follow-up on her chronic health issues. Return in 4 weeks OB check 09/23/24 -?-?-?-?-?-?-?-?-?-?-?-?- 9w 3d 95.481 kg 116/73 absent 8 patient stopped taking norco and metropol for hypertention. advised to P/U and start Labetolol. I reviewed current medication with patient. she will continue PNV daily. start Labetolol 200 bis as directed, OK to continue with Ambien q hs for sleep. and continue Lamotrigine for PTSD and Bipolar. patient is also taking zofran as needed for nausea and pepcid for acid reflux. I discussed comfort measure for increased acid and N/V. we discussed SAB precaution. discussed dates, sono pending due to insurance problem. labs discussed. keep appointment with PCP/Dr Tirado in 2 week. OB check in 4 week for NIPT 10/14/24 -?-?-?-?-?-?-?-?-?-?-?-?- 12w 3d 87.09 kg 156/118 absent unknown 12 156 absent Patient discharge fro hospital. inpatient x 5 days for hyperemesis, DC home on Reglan 10mg daily. zofran and phenergan 25 mg supp tid. unable to keep down small bits of food and fluid. vomits constantly all day. she has not started phenergan. poor compliance with labetolol . consult with OB regarding BP. patient denies PIH complaints, no sab complaints NIPT and carrier screen. schedule MFM referral, start procardia 30mf XL immediately and RTC with OB 10/16/24 for BP check. review comfort measure for N/V, sab precaution NIPT and carrier screen. esther peña MFM referral, start procardia 30mf XL immediately and RTC with OB 10/16/24 for BP check. review comfort measure for N/V, sab precaution, NIPT, carrier screen 10/16/24 -?-?-?-?-?-?-?-?-?-?-?-?- 12w 5d 88.167 kg 124/82 Disregard note in Hx notes box (charted on wrong pt), correct note is here: 32yo @12w5d, severe hyperemesis (rec ent 5-day admission), low K+, chronic HTN on labetalol/Procardia, bipolar disorder on lamotrigine, insomnia. Plan: continue meds (Phenergan, Zofran, Reglan, Protonix, prednisone), refill prescriptions, labs for genetic testing, welfare note, check FHR by sono when room available. 10/27/24 -?-?-?-?-?-?-?-?-?-?-?-?- 14w 2d 93.213 kg 108/72 absent unknown 14 156 absent doing alittle better. compliant with labetolol 100 bid and nifedipine 30mg XL daily, patient continue on omeprizole and pepcid for indigestion, taking phenergan 25 mg po and zofran for nausea. eating has improved and vomiting less, denies sab complaints, MFM appointment pending continue cur rent plan of management, nifedipine 30 XL daily and labeolol BID, comfort measure for N/V, sab precaution, patient will see OB in november. RTC 4 week 11/19/24 -?-?-?-?-?-?-?-?-?-?-?-?- 17w 4d 96.388 kg 127/87 absent unknown 145 absent Patient reports nausea and vomiting. Patient denies cramping and abdominal pain. Patient reports headache. Denies VC, and epigastric pain. - Continue routine care - Follow up in 4 weeks - Complete referral process for level 2 ultrasound at [facility] - Perform blood work today (specific julee ts not mentioned) - Continue Zofran as needed for nausea a nd vomiting - Advised patient to carry Zofran with h er at all times - Reassured patient that symptoms typica lly improve as progresses - Prescribe nicotine patches as a safer alternative to smoking during - Educate patient on risks of smoking du ring and benefits of cessation - Prescribe Wellbutrin for anxiety and t o aid in smoking cessation - Informed patient that Wellbutrin is safe in and can help with anxiety without causing drowsiness 12/04/24 -?-?-?-?-?-?-?-?-?-?-?-?- 19w 5d 97.125 kg 108/70 absent unknown 19 156 absent Reports slight movement. Denies leaking, bleeding, contractions. Patient reports that she has had periods of feeling suicidal. This is not a new complaint for her she says patient sees and has virtual appointments with behavioral health monthly. Patient just spoke with behavioral health counselor a week ago and she is aware of her thoughts towards suicide. Patient reports she has an appointment with MFM in a week. She is taking prenatals. She has concerns because she has limited family support both from the father of the baby and his family and her family. Right now she is safe she lives with her cousin and that makes her happy. Continue nifedip ine 30 XL and labetalol 100 twice daily as directed. Patient will continue Pepcid for indigestion. Patient is taking Lamictal lamotrigine for PTSD and she is to continue taking that. Continue comfort measures for nausea. Patient has a follow-up appointment with behavioral health in a month. But I advised patient to do a walk-in today at [facility] for behavioral health. aFP today. Keep appointment with maternal- medicine for 12 December. And patient has a follow-up with Dr. Ricks for OB check in a week and to follow-up on blood pressures. Increase fluids. Discussed labor precautions. 01/01/25 -?-?-?-?-?-?-?-?-?-?-?-?- 23w 5d 100.301 kg 109/71 absent unknown 23 135 active Feeling better today. Denies labor symptoms. Patient is here to rule out STDs. She reports that she thinks her boyfriend is cheating. Positive movement. Denies any bleeding denies cramping denies leaking fluids. Urine: protein-,NIT- Continue nifedipine 30 XL and labetalol. Patient to get third trimester labs and PIH labs. Discussed labor precautions. Discussed safe sex. New swab today. Patient will be vigilant about STDs. And keep appointment with OB on January 14. 01/14/25 -?-?-?-?-?-?-?-?-?-?-?-?- 25w 4d 98.997 kg 117/69 absent unknown 25 145 active 2, para 1 at 25 weeks and 4 days gestation with multiple comorbidities including chronic hypertension, recurrent UTIs, seizure disorder, bipolar disorder, hyperemesis, nicotine dependence, and obesity. Recent M ultrasound revealed short cervical length of 5.7, but labor was ruled out. Patient reports fatigue and dry skin, likely due to inadequate fluid intake. heart rate is 153 bpm, which is within normal range. One-hour glucose test results were elevated, necessitating a 3-hour glucose tolerance test. Awaiting possible cardiac ultrasound for the fetus. - Sche dule 3-hour glucose test due to high one-hour test results - Continue taking vitamins with folic acid; extra folic acid recommended due to seizure medications - Take vitamin D3 supplement (one pill d aily) - Increase fluid intake to at least 32 o unces of water daily - Follow up in 4 weeks - Attend next appointment at [facility] on February 23 - Call if glucose test results are abnor mal - Await possible cardiac ultrasound for the baby IVONNE Calculator Estimated Delivery Date Method Current WG Current Estimate 04/25/25 Ultrasound #1 26w 1d Other Estimates 04/09/25 LMP (Uncertain) 28w 3d 04/29/25 Ultrasound #2 25w 4d Specific Issue/Plans - , second trimester - Chronic hypertension - Recurrent urinary tract infections - Seizure disorder - Bipolar disorder - Hyperemesis gravidarum - Nicotine dependence - Obesity - Short cervical length - Abnormal glucose tolerance test Notes Visit Date: 11/19/24 Last Updated by: Brian Friedman MD Risk and Safety Assessment - Current Risk: - Patient reports smoking cigarettes (2-3 per day from November 08 to November 15) - History of marijuana use - Patient experiencing significant emotional distress (crying or angry all the time ) - Patient reports anxiety and racing heart - Protective Factors: - Patient is engaged in care - Patient is willing to consider medication changes for anxiety and smoking cessation - Safety Factors: - Patient denies concerns about personal safety when asked - Patient states regarding partner: I don't think he cares enough to harm me Visit Date: 10/27/24 Last Updated by: Chika Jacobo CNM 29 yo . ivonne: 04/25/25. O+,abs-, rpr;;nr, rub IM, hiv-,HC-, HBSAG-, gc/ct-, A1: 5.7 Visit Date: 10/14/24 Last Updated by: Chika Jacobo CNM /: start procardia 30mg XL. continue Labetolol 200 bid Visit Date: 09/23/24 Last Updated by: Chika Jacobo CNM 29 yo iup 8 week poor dates. HX of: PTSD, Anxiety. BiPolar and hypertention. . LMP 07/03/24. EDC 04/09/25. O+,abs-,rpr;;nr, rub NI, hbsag-,hiv-,HC-, GC/CT-, early 1 hr GTT was 93 A1c: 5.7 Office Procedures OB Clinic LOC & Office Proc's Nursing/Assessment Patient Status: Established Patient OB Clinic Nursing Assessment: Medication Reconciliation, Update PMH in EMR and Vital Signs OB Clinic Coordination of Care: Complex Care and Chronic Disease 1-5, Consent,records obtained, informed consent, Education Simp Pt/Fam, Lab and Imaging orders and Staff clarify orders Special Needs: Heart tones Established Patient Charge Established Patient Point Assignment: 130 Established Patient Point Charge: EP Level 4 (120-155) Assessment & Plan Diagnosis / Problem List (1) Encounter for supervision of high risk in second trimester, antepartum: Status: Acute
[2024-11-19 10:28] VITALS: BP 127/87; PULSE 93; RESP 17; TEMP 36.9; O2SAT 96; BMI 40.1
== END 2024-11-19 10:51 | disposition home or self-care (01) ==
LOC: HODSOBC 10:09
PROVIDERS: PCP Obstetrics & Gynecology; Referring Provider Obstetrics & Gynecology; Supervising Provider Obstetrics & Gynecology; Visit Provider Obstetrics & Gynecology
DX: O09.892 Supervision of other high risk pregnancies, second trimester (principal); O10.912 Unspecified pre-existing hypertension complicating pregnancy, second trimester; O99.342 Other mental disorders complicating pregnancy, second trimester; F41.9 Anxiety disorder, unspecified; F31.9 Bipolar disorder, unspecified; O99.352 Diseases of the nervous system complicating pregnancy, second trimester; G40.909 Epilepsy, unspecified, not intractable, without status epilepticus; O99.212 Obesity complicating pregnancy, second trimester; O99.332 Smoking (tobacco) complicating pregnancy, second trimester; O26.872 Cervical shortening, second trimester; F17.210 Nicotine dependence, cigarettes, uncomplicated; O21.0 Mild hyperemesis gravidarum; Z3A.17 17 weeks gestation of pregnancy; Z71.6 Tobacco abuse counseling; Z79.899 Other long term (current) drug therapy; Z88.6 Allergy status to analgesic agent; Z88.1 Allergy status to other antibiotic agents; Z88.0 Allergy status to penicillin
CPT/HCPCS: 99214; G0463

== ENCOUNTER 2024-12-04 10:38 | Outpatient (AMB) | payer MEDICAID, SELFPAY ==
[2024-12-04 10:55] VITALS: BP 108/70; PULSE 90; RESP 17; TEMP 36.5; O2SAT 98; BMI 40.4
--- NOTE | 2024-12-04 10:55 | OBCLNT_ITS ---
Vital Signs 12/04/24 10:55 Height 1.55 m Height Method Measured Weight 97.125 kg Weight Measurement Method Standing Scale BMI 40.4 BP 108/70 Blood Pressure Source Automatic Cuff Blood Pressure Location Right Upper Arm Position Sitting Respiration 17 Pulse 90 Pulse Source Monitor Temp 97.7 F Temp Source Temporal Artery Scan Pulse Oximetry (%) 98 Oxygen Delivery Method Room Air Allergies/Home Meds Allergies & Medications Allergies clavulanic acid (From Augmentin) Allergy (Severe, Verified 12/04/24 10:55) burning sensation amoxicillin (From Augmentin) Adverse Reaction (Severe, Verified 12/04/24 10:55) burning sensation ibuprofen Adverse Reaction (Severe, Verified 12/04/24 10:55) DUE TO KIDNEYS Medication Reconciliation labetalol 200 mg tablet 200 mg PO BID hypertention 30 days #60 tabs 09/02/24 [Rx Confirmed 12/04/24] lamotrigine 100 mg tablet 100 mg PO BID #60 tabs 10/08/24 [Rx Confirmed 12/04/24] metoclopramide HCl 10 mg tablet (Reglan) 10 mg PO ACHS PRN nausea and vomiting #30 tabs 10/08/24 [Rx Confirmed 12/04/24] pantoprazole 40 mg tablet,delayed release (Protonix) 40 mg PO QDAY #30 tabs 10/08/24 [Rx Confirmed 12/04/24] prednisone 5 mg tablet 5 mg PO QDAY #31 tabs 10/08/24 [Rx Confirmed 12/04/24] nifedipine 30 mg tablet,extended release 24 hr (Procardia XL) 30 mg PO QDAY #30 tabs 10/14/24 [Rx Confirmed 12/04/24] bupropion HCl 150 mg 24 hr tablet, extended release (Wellbutrin XL) 150 mg PO QAM 30 days #30 tabs 11/19/24 [Rx Confirmed 12/04/24] nicotine 14 mg/24 hr daily transdermal patch 1 patch transdermal QDAY 28 days #28 ea 11/19/24 [Rx Confirmed 12/04/24] Intake Visit Data Collection New Patient or Established: Established Patient (seen at [facility] within 3 years) Reason for Visit:: OBC Consent obtained for Telemed Visit: No Seen by Clinical Staff ONLY (RN/MA): No Chairman & Chief Executive Officer Required: No Do You Feel Safe at Home: Yes Authorities Contacted: N/A PCP or OBGYN visit in last 3 months: Yes Date of Last PCP or OBGYN visit: 11/19/24 Hx Now: Yes Are you currently on any form of Control: No Pain Present Currently: No Pain Scale Used: Najera-Saleem/Numerical Pain scale:: 0 Smoking Status Smoking Status: Current some day smoker Cessation Counseling Provided: MASSIEL was advised that quitting smoking is the single most important factor to protect the health of themselves and their family. Discussed the benefits of quitting smoking with patient. Encouraged patient to quit smoking and provided Cessation assistance materials and resources. Tobacco Use: Cigarette Years smoked: 7 Are you interested in Quitting?: No Questionnaires Covid-19 Vaccine Questionnaire Has patient been vacinated for Covid-19 Have you been vacinated for Covid-19: No PHQ-9 PHQ-2 Over the last 2 weeks, how often have you been bothered by any of the following problems? 1. Little interest or pleasure in doing things: several days PHQ-9 8. Moving or speaking so slowly that other people could have noticed? - Or the opposite - being so fidgety or restless that you have been moving around a lot more than usual: not at all Source: Developed by Drs. Terry Gomez, Daria Russell, Tylor Mendoza and colleagues, with an educational maryam from [employer]. 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 Patient has poor dates. History of irregular menses. She thinks her last period might have been July 03, 2024. Patient has a history of anxiety and depression. And she plans to schedule an appointment with her behavioral health counselor. She has stopped taking her behavioral health meds. Patient does not remember what she has been taking. She takes Metropol all for high blood pressure. Patient also has chronic neck pain and she has been taking [place] for that but she states that since she had a positive test she stopped taking her. Currently she smokes an occasional cigarette through the week. And she is smoking marijuana. She denies any SAB complaints. Reports tiredness and breast tenderness. She is taking vitamins. OB panel was ordered. I ordered 1 hour GTT, hemoglobin A1c.hcg. CBC with differential and CHEM panel. Was ordered. 24-hour protein also was ordered. And ordered ultrasound for dates and viability. SAB precautions. Patient to start labetalol 200 twice daily gave her 60 with 5 refills. And patient will also schedule an earlier appointment with Dr. Escobar to follow-up on her chronic health issues. Return in 4 weeks OB check 09/23/24 -?-?-?-?-?-?-?-?-?-?-?-?- 9w 3d 95.481 kg 116/73 absent 8 patient stopped taking norco and metropol for hypertention. advised to P/U and start Labetolol. I reviewed current medication with patient. she will continue PNV daily. start Labetolol 200 bis as directed, OK to continue with Ambien q hs for sleep. and continue Lamotrigine for PTSD and Bipolar. patient is also taking zofran as needed for nausea and pepcid for acid reflux. I discussed comfort measure for increased acid and N/V. we discussed SAB precaution. discussed dates, sono pending due to insurance problem. labs discussed. keep appointment with PCP/Dr Tirado in 2 week. OB check in 4 week for NIPT 10/14/24 -?-?-?-?-?-?-?-?-?-?-?-?- 12w 3d 87.09 kg 156/118 absent unknown 12 156 absent Patient discharge fro hospital. inpatient x 5 days for hyperemesis, DC home on Reglan 10mg daily. zofran and phenergan 25 mg supp tid. unable to keep down small bits of food and fluid. vomits constantly all day. she has not started phenergan. poor compliance with labetolol . consult with OB regarding BP. patient denies PIH complaints, no sab complaints NIPT and carrier screen. schedule MFM referral, start procardia 30mf XL immediately and RTC with OB 10/16/24 for BP check. review comfort measure for N/V, sab precaution NIPT and carrier screen. esther peña MFM referral, start procardia 30mf XL immediately and RTC with OB 10/16/24 for BP check. review comfort measure for N/V, sab precaution, NIPT, carrier screen 10/16/24 -?-?-?-?-?-?-?-?-?-?-?-?- 12w 5d 88.167 kg 124/82 Disregard note in Hx notes box (charted on wrong pt), correct note is here: 32yo @12w5d, severe hyperemesis (rec ent 5-day admission), low K+, chronic HTN on labetalol/Procardia, bipolar disorder on lamotrigine, insomnia. Plan: continue meds (Phenergan, Zofran, Reglan, Protonix, prednisone), refill prescriptions, labs for genetic testing, welfare note, check FHR by sashao when room available. 10/27/24 -?-?-?-?-?-?-?-?-?-?-?-?- 14w 2d 93.213 kg 108/72 absent unknown 14 156 absent doing alittle better. compliant with labetolol 100 bid and nifedipine 30mg XL daily, patient continue on omeprizole and pepcid for indigestion, taking phenergan 25 mg po and zofran for nausea. eating has improved and vomiting less, denies sab complaints, MFM appointment pending continue cur rent plan of management, nifedipine 30 XL daily and labeolol BID, comfort measure for N/V, sab precaution, patient will see OB in november. RTC 4 week 12/04/24 -?-?-?-?-?-?-?-?-?-?-?-?- 19w 5d 97.125 kg 108/70 absent unknown 19 156 absent Reports slight movement. Denies leaking, bleeding, contractions. Patient reports that she has had periods of feeling suicidal. This is not a new complaint for her she says patient sees and has virtual appointments with behavioral health monthly. Patient just spoke with behavioral health counselor a week ago and she is aware of her thoughts towards suicide. Patient reports she has an appointment with [facility] in a week. She is taking prenatals. She has concerns because she has limited family support both from the father of the baby and his family and her family. Right now she is safe she lives with her cousin and that makes her happy. Continue nifedip ine 30 XL and labetalol 100 twice daily as directed. Patient will continue Pepcid for indigestion. Patient is taking Lamictal lamotrigine for PTSD and she is to continue taking that. Continue comfort measures for nausea. Patient has a follow-up appointment with behavioral health in a month. But I advised patient to do a walk-in today at [facility] for behavioral health. aFP today. Keep appointment with maternal- medicine for 12 December. And patient has a follow-up with Dr. Ricks for OB check in a week and to follow-up on blood pressures. Increase fluids. Discussed labor precautions. IVONNE Calculator Estimated Delivery Date Method Current WG Current Estimate 04/25/25 Ultrasound #1 19w 5d Other Estimates 04/09/25 LMP (Uncertain) 22w 0d Notes Visit Date: 10/27/24 Last Updated by: Chika Jacobo CNM 29 yo . ivonne: 04/25/25. O+,abs-, rpr;;nr, rub IM, hiv-,HC-, HBSAG-, gc/ct-, A1: 5.7 Visit Date: 10/14/24 Last Updated by: Chika Jacobo CNM 10/14: start procardia 30mg XL. continue Labetolol 200 bid Visit Date: 09/23/24 Last Updated by: Chika Jacobo CNM 29 yo iup 8 week poor dates. HX of: PTSD, Anxiety. BiPolar and hypertention. . LMP 07/03/24. EDC 04/09/25. O+,abs-,rpr;;nr, rub NI, hbsag-,hiv-,HC-, GC/CT-, early 1 hr GTT was 93 A1c: 5.7 Office Procedures OB Clinic LOC & Office Proc's Nursing/Assessment Patient Status: Established Patient OB Clinic Nursing Assessment: Medication Reconciliation, Update PMH in EMR and Vital Signs OB Clinic Coordination of Care: Complex Care and Chronic Disease 1-5, Consent,records obtained, informed consent, Education Simp Pt/Fam and 4+ Authorizations needed Special Needs: Heart tones Established Patient Charge Established Patient Point Assignment: 130 Established Patient Point Charge: EP Level 4 (120-155) Assessment & Plan Diagnosis / Problem List (1) Encounter for supervision of high risk in second trimester, antepartum: Status: Acute Plan Keep maternal- medicine appointment in a week. Continue to follow-up with behavioral health specialist monthly. I advised patient to do a walk-in appointment to behavioral health at [facility] and she agrees she is going to do it. aFP today. She has an appointment with OB next week for follow-up on blood pressure and to evaluate plan of care. labor precautions reviewed Additional Plan Follow Up: 1 Week (obc)
== END 2024-12-04 11:42 | disposition home or self-care (01) ==
LOC: HODSOBC 10:38
PROVIDERS: Supervising Provider Advanced Practice Midwife; Visit Provider Advanced Practice Midwife
DX: O09.892 Supervision of other high risk pregnancies, second trimester (principal); O10.912 Unspecified pre-existing hypertension complicating pregnancy, second trimester; O99.342 Other mental disorders complicating pregnancy, second trimester; F43.10 Post-traumatic stress disorder, unspecified; F31.9 Bipolar disorder, unspecified; F41.9 Anxiety disorder, unspecified; Z3A.19 19 weeks gestation of pregnancy; O99.332 Smoking (tobacco) complicating pregnancy, second trimester; F17.210 Nicotine dependence, cigarettes, uncomplicated; Z71.6 Tobacco abuse counseling; Z79.899 Other long term (current) drug therapy; Z88.6 Allergy status to analgesic agent; Z88.0 Allergy status to penicillin
CPT/HCPCS: 99214; G0463

== ENCOUNTER 2024-12-16 11:33 | Outpatient (AMB) | payer MEDICAID, SELFPAY ==
[2024-12-16 11:43] VITALS: BP 138/82; PULSE 91; RESP 17; TEMP 36.6; O2SAT 98; BMI 40.6
--- NOTE | 2024-12-16 11:43 | OBCLNT_ITS ---
Vital Signs 12/16/24 11:43 Height 1.55 m Height Method Measured Weight 97.692 kg Weight Measurement Method Standing Scale BMI 40.6 BP 138/82 H Blood Pressure Source Automatic Cuff Blood Pressure Location Right Upper Arm Position Sitting Respiration 17 Pulse 91 Pulse Source Monitor Temp 97.9 F Temp Source Temporal Artery Scan Pulse Oximetry (%) 98 Oxygen Delivery Method Room Air Allergies/Home Meds Allergies & Medications Allergies clavulanic acid (From Augmentin) Allergy (Severe, Verified 02/17/25 15:26) burning sensation amoxicillin (From Augmentin) Adverse Reaction (Severe, Verified 02/17/25 15:26) burning sensation ibuprofen Adverse Reaction (Severe, Verified 02/17/25 15:26) DUE TO KIDNEYS Medication Reconciliation lamotrigine 100 mg tablet 100 mg PO BID #60 tabs 10/08/24 [Rx Confirmed 02/17/25] metoclopramide HCl 10 mg tablet (Reglan) 10 mg PO ACHS PRN nausea and vomiting #30 tabs 10/08/24 [Rx Confirmed 02/17/25] pantoprazole 40 mg tablet,delayed release (Protonix) 40 mg PO QDAY #30 tabs 10/08/24 [Rx Confirmed 02/17/25] prednisone 5 mg tablet 5 mg PO QDAY #31 tabs 10/08/24 [Rx Confirmed 02/17/25] nifedipine 30 mg tablet,extended release 24 hr (Procardia XL) 30 mg PO QDAY #30 tabs 10/14/24 [Rx Confirmed 02/17/25] bupropion HCl 150 mg 24 hr tablet, extended release (Wellbutrin XL) 150 mg PO QAM 30 days #30 tabs 11/19/24 [Rx Confirmed 02/17/25] nicotine 14 mg/24 hr daily transdermal patch 1 patch transdermal QDAY 28 days #28 ea 11/19/24 [Rx Confirmed 02/17/25] labetalol 200 mg tablet 200 mg PO BID hypertention 30 days #60 tabs 02/11/25 [Rx Confirmed 02/17/25] promethazine 12.5 mg rectal suppository 12.5 mg CA Q8HR PRN vomiting 10 days #12 ea 02/23/25 [Rx] Intake Visit Data Collection New Patient or Established: Established Patient (seen at [facility] within 3 years) Reason for Visit:: OBC Consent obtained for Telemed Visit: No Seen by Clinical Staff ONLY (RN/MA): No Structural Steel 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 Discussed the benefits of quitting smoking with patient. Encouraged patient to quit smoking and provided Cessation assistance materials and resources. Tobacco Use: Cigarette Years smoked: 15 Are you interested in Quitting?: Yes Would you like additional Smoking Cessation Counseling?: Yes Questionnaires Covid-19 Vaccine Questionnaire Has patient been vacinated for Covid-19 Have you been vacinated for Covid-19: No PHQ-9 PHQ-2 Over the last 2 weeks, how often have you been bothered by any of the following problems? 1. Little interest or pleasure in doing things: several days PHQ-9 8. Moving or speaking so slowly that other people could have noticed? - Or the opposite - being so fidgety or restless that you have been moving around a lot more than usual: not at all Source: Developed by Drs. Terry Gomez, Daria Russell, Tylor Mendoza and colleagues, with an educational maryam from [employer]. 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 Feel Safe at Home: Yes [employer]: Past Medical History Past Medical History: No Hx Neurological Disorders, Yes Hx Cardiac Disorders, Yes Hx Hypertension, No Hx Blood Disorders, No Hx Anemia, Yes Hx Gastrointestinal Disorders, No Hx Renal Disease, No Hx Diabetes Mellitus Type 1 and No Hx Diabetes Mellitus Type 2 Care OB Visit Log OB Flowsheet Initial Weight: Not Recorded Date -?-?-?-?-?-?-?-?-?-?-?-?- EGA Weight BP Alb Glu CTX Pres Fundal ht FHR Mov Dilation Station Effacement Hx Notes Visit Note 09/02/24 -?-?-?-?-?-?-?-?-?-?-?-?- 6w 3d 94.461 kg 127/70 absent 29-year-old 2 para 0 for first OB visit. Patient has poor dates. History of irregular menses. She thinks her last period might have been July 03, 2024. Patient has a history of anxiety and depression. And she plans to schedule an appointment with her behavioral health counselor. She has stopped taking her behavioral health meds. Patient does not remember what she has been taking. She takes Metropol all for high blood pressure. Patient also has chronic neck pain and she has been taking Wasola for that but she states that since she had a positive test she stopped taking her. Currently she smokes an occasional cigarette through the week. And she is smoking marijuana. She denies any SAB complaints. Reports tiredness and breast tenderness. She is taking vitamins. OB panel was ordered. I ordered 1 hour GTT, hemoglobin A1c.hcg. CBC with differential and CHEM panel. Was ordered. 24-hour protein also was ordered. And ordered ultrasound for dates and viability. SAB precautions. Patient to start labetalol 200 twice daily gave her 60 with 5 refills. And patient will also schedule an earlier appointment with Dr. Escobar to follow-up on her chronic health issues. Return in 4 weeks OB check 09/23/24 -?--?-?-?-?-?-?-?-?-?-?-?- 9w 3d 95.481 kg 116/73 absent 8 patient stopped taking norco and metropol for hypertention. advised to P/U and start Labetolol. I reviewed current medication with patient. she will continue PNV daily. start Labetolol 200 bis as directed, OK to continue with Ambien q hs for sleep. and continue Lamotrigine for PTSD and Bipolar. patient is also taking zofran as needed for nausea and pepcid for acid reflux. I discussed comfort measure for increased acid and N/V. we discussed SAB precaution. discussed dates, sono pending due to insurance problem. labs discussed. keep appointment with PCP/Dr Tirado in 2 week. OB check in 4 week for NIPT 10/14/24 -?-?-?-?-?-?-?-?-?-?-?-?- 12w 3d 87.09 kg 156/118 absent unknown 12 156 absent Patient discharge fro hospital. inpatient x 5 days for hyperemesis, DC home on Reglan 10mg daily. zofran and phenergan 25 mg supp tid. unable to keep down small bits of food and fluid. vomits constantly all day. she has not started phenergan. poor compliance with labetolol . consult with OB regarding BP. patient denies PIH complaints, no sab complaints NIPT and alison er screen. schedule MFM referral, start procardia 30mf XL immediately and RTC with OB 10/16/24 for BP check. review comfort measure for N/V, sab precaution NIPT and carrier screen. esther mariajosele MFM referral, start procardia 30mf XL immediately and RTC with OB 10/16/24 for BP check. review comfort measure for N/V, sab precaution, NIPT, carrier screen 10/16/24 -?-?-?-?-?-?-?-?-?-?-?-?- 12w 5d 88.167 kg 124/82 Disregard note in Hx notes box (charted on wrong pt), correct note is here: 32yo @12w5d, severe hyperemesis (rec ent 5-day admission), low K+, chronic HTN on labetalol/Procardia, bipolar disorder on lamotrigine, insomnia. Plan: continue meds (Phenergan, Zofran, Reglan, Protonix, prednisone), refill prescriptions, labs for genetic testing, welfare note, check FHR by josé miguel when room available. 10/27/24 -?-?-?-?-?-?-?-?-?-?-?-?- 14w 2d 93.213 kg 108/72 absent unknown 14 156 absent doing alittle better. compliant with labetolol 100 bid and nifedipine 30mg XL daily, patient continue on omeprizole and pepcid for indigestion, taking phenergan 25 mg po and zofran for nausea. eating has improved and vomiting less, denies sab complaints, MFM appointment pending continue cur rent plan of management, nifedipine 30 XL daily and labeolol BID, comfort measure for N/V, sab precaution, patient will see OB in november. RTC 4 week 11/19/24 -?-?-?-?-?-?-?-?-?-?-?-?- 17w 4d 96.388 kg 127/87 absent unknown 145 absent Patient reports nausea and vomiting. Patient denies cramping and abdominal pain. Patient reports headache. Denies VC, and epigastric pain. - Continue routine care - Follow up in 4 weeks - Complete referral process for level 2 ultrasound at [facility] - Perform blood work today (specific julee ts not mentioned) - Continue Zofran as needed for nausea a nd vomiting - Advised patient to carry Zofran with h er at all times - Reassured patient that symptoms typica lly improve as progresses - Prescribe nicotine patches as a safer alternative to smoking during - Educate patient on risks of smoking du ring and benefits of cessation - Prescribe Wellbutrin for anxiety and t o aid in smoking cessation - Informed patient that Wellbutrin is safe in and can help with anxiety without causing drowsiness 12/04/24 -?-?-?-?-?-?-?-?-?-?-?-?- 19w 5d 97.125 kg 108/70 absent unknown 19 156 absent Reports slight movement. Denies leaking, bleeding, contractions. Patient reports that she has had periods of feeling suicidal. This is not a new complaint for her she says patient sees and has virtual appointments with behavioral health monthly. Patient just spoke with behavioral health counselor a week ago and she is aware of her thoughts towards suicide. Patient reports she has an appointment with [facility] in a week. She is taking prenatals. She has concerns because she has limited family support both from the father of the baby and his family and her family. Right now she is safe she lives with her cousin and that makes her happy. Continue nifedip ine 30 XL and labetalol 100 twice daily as directed. Patient will continue Pepcid for indigestion. Patient is taking Lamictal lamotrigine for PTSD and she is to continue taking that. Continue comfort measures for nausea. Patient has a follow-up appointment with behavioral health in a month. But I advised patient to do a walk-in today at [facility] for behavioral health. aFP today. Keep appointment with maternal- medicine for 12 December. And patient has a follow-up with Dr. Ricks for OB check in a week and to follow-up on blood pressures. Increase fluids. Discussed labor precautions. 12/16/24 -?-?-?-?-?-?-?-?-?-?-?-?- 21w 3d 97.692 kg 138/82 absent unknown 21 140 absent - Patient reports severe stress due to partner's infidelity. - Medication regimen includes: - Labetalol for chronic hypertension - Lamotrigine for seizure disorder - Wellbutrin (started at last appointm ent) - Reglan - Nicotine patches (resumed smoking, n ow using patches) - Procardia - Protonix - Social history: - Mother is partially paralyzed and re siding in a local facility - Recent healthcare interactions: - Ultrasound performed with Maternal[facility]F etal Medicine on 12/12/2024 - Visited [facility] for heart evaluation Plan - Administer antibiotics for urinary tra ct infection, 5-day course - Order echocardiogram to assess cardiac function in relation to hypertension - Refer to cardiology for consultation - Continue current medications: labetalo l, lamotrigine, Reglan, nicotine patches, Procardia, Protonix, Wellbutrin - Start aspirin 81mg daily for preeclamp patricio prevention - Obtain lab work as ordered - Follow up in one month - Schedule third trimester screening and internal testing - Plan for elective delivery at 38 weeks 01/01/25 -?-?-?-?-?-?-?-?-?-?-?-?- 23w 5d 100.301 kg 109/71 absent unknown 23 135 active Feeling better today. Denies labor symptoms. Patient is here to rule out STDs. She reports that she thinks her boyfriend is cheating. Positive movement. Denies any bleeding denies cramping denies leaking fluids. Urine: protein-,NIT- Continue nifedipine 30 XL and labetalol. Patient to get third trimester labs and PIH labs. Discussed labor precautions. Discussed safe sex. New swab today. Patient will be vigilant about STDs. And keep appointment with OB on January 14. 01/14/25 -?-?-?-?-?-?-?-?-?-?-?-?- 25w 4d 98.997 kg 117/69 absent unknown 25 145 active 2, para 1 at 25 weeks and 4 days gestation with multiple comorbidities including chronic hypertension, recurrent UTIs, seizure disorder, bipolar disorder, hyperemesis, nicotine dependence, and obesity. Recent M ultrasound revealed short cervical length of 5.7, but labor was ruled out. Patient reports fatigue and dry skin, likely due to inadequate fluid intake. heart rate is 153 bpm, which is within normal range. One-hour glucose test results were elevated, necessitating a 3-hour glucose tolerance test. Awaiting possible cardiac ultrasound for the fetus. - Sche dule 3-hour glucose test due to high one-hour test results - Continue taking vitamins with folic acid; extra folic acid recommended due to seizure medications - Take vitamin D3 supplement (one pill d aily) - Increase fluid intake to at least 32 o unces of water daily - Follow up in 4 weeks - Attend next appointment at [facility] on February 23 - Call if glucose test results are abnor mal - Await possible cardiac ultrasound for the baby 02/11/25 -?-?-?-?-?-?-?-?-?-?-?-?- 29w 4d 100.754 kg 108/73 absent unknown 30 150 active - She has a history of short cervical length measuring 5.7 millimeters at 25 weeks gestation. - labor was ruled out at that time. - Patient has chronic hypertension with superimposed urinary tract infection. - Currently on labetalol and Procardia for blood pressure management. - Completed a 5-day course of antibiot ics for UTI after her last appointment. - She has a past medical history of bipo lar disorder and nicotine dependence. - Currently taking lamotrigine and bup ropion. - [facility]. - Patient had an abnormal 1-hour glucose tolerance test and a 3-hour glucose tolerance test was ordered. - She completed the 3-hour glucose tolerance test and results are pending. Plan - Order CBC at the emergency room - Obtain 3-hour glucose tolerance test r esults (if not completed or insufficient, repeat at next visit if needed) - Follow up in 2 weeks IVONNE Calculator Estimated Delivery Date Method Current WG Current Estimate 04/25/25 Ultrasound #1 31w 3d Other Estimates 04/09/25 LMP (Uncertain) 33w 5d 04/29/25 Ultrasound #2 30w 6d Specific Issue/Plans - , second trimester - Chronic hypertension - Recurrent urinary tract infections - Seizure disorder - Bipolar disorder - Hyperemesis gravidarum - Nicotine dependence - Obesity - Short cervical length - Abnormal glucose tolerance test Notes Visit Date: 12/16/24 Last Updated by: Brian Friedman MD Problem List - , 21 weeks 3 days - Chronic hypertension - Urinary tract infection - Seizure disorder - Bipolar disorder - Hyperemesis gravidarum - Nicotine dependence - Obesity - Marijuana use Visit Date: 11/19/24 Last Updated by: Brian Friedman MD Risk and Safety Assessment - Current Risk: - Patient reports smoking cigarettes (2-3 per day from November 08 to November 15) - History of marijuana use - Patient experiencing significant emotional distress (crying or angry all the time ) - Patient reports anxiety and racing heart - Protective Factors: - Patient is engaged in care - Patient is willing to consider medication changes for anxiety and smoking cessation - Safety Factors: - Patient denies concerns about personal safety when asked - Patient states regarding partner: I don't think he cares enough to harm me Visit Date: 10/27/24 Last Updated by: Chika Jacobo CNM 29 yo . ivonne: 04/25/25. O+,abs-, rpr;;nr, rub IM, hiv-,HC-, HBSAG-, gc/ct-, A1: 5.7 Visit Date: 10/14/24 Last Updated by: Chika Jacobo CNM 6/: start procardia 30mg XL. continue Labetolol 200 bid Visit Date: 09/23/24 Last Updated by: Chika Jacobo CNM 29 yo iup 8 week poor dates. HX of: PTSD, Anxiety. BiPolar and hypertention. . LMP 07/03/24. EDC 04/09/25. O+,abs-,rpr;;nr, rub NI, hbsag-,hiv-,HC-, GC/CT-, early 1 hr GTT was 93 A1c: 5.7 Assessment & Plan Diagnosis / Problem List (1) Abnormal glucose complicating : Status: Acute (2) Bipolar disorder, unspecified: Status: Acute (3) Unspecified infection of urinary tract in , second trimester: Status: Acute Plan Problem List - , 21 weeks 3 days - Chronic hypertension - Urinary tract infection - Seizure disorder - Bipolar disorder - Hyperemesis gravidarum - Nicotine dependence - Obesity - Marijuana use Assessment visit at 21 weeks, 3 days gestation. . Chronic hypertension managed with labetalol. History of severe hyperemesis gravidarum. Urinary tract infection detected with presence of blood, proteins, and leukocytes in urine. Seizure disorder managed with lamotrigine. Bipolar disorder with predominant depression. Severe obesity. Recent nicotine use, currently using nicotine patches. Marijuana use reported. Anxiety noted. Recent ultrasound by [facility] on 12/12/2024 showed cervical length of 5.78 cm transabdominally. Multiple social stressors, including partner infidelity. Current medications include Wellbutrin, labetalol, lamotrigine, Reglan, nicotine patches, Procardia, and Protonix. Plan - Administer antibiotics for urinary tract infection, 5-day course - Order echocardiogram to assess cardiac function in relation to hypertension - Refer to cardiology for consultation - Continue current medications: labetalol, lamotrigine, Reglan, nicotine patches, Procardia, Protonix, Wellbutrin - Start aspirin 81mg daily for preeclampsia prevention - Obtain lab work as ordered - Follow up in one month - Schedule third trimester screening and internal testing - Plan for elective delivery at 38 weeks 1. Progress Reviewed gestational age (21 weeks, 3 days), growth, and heart rate (140, 138, normal). Planned frequent visits (every 2 weeks until 36 weeks, then weekly). 2. Instructed patient to monitor movements and report decreases i mmediately. 3. Testing Counseled on routine third-trimester labs per guidelines. Discussed potential need for ultrasound or monitoring based on risk factors. 4. Preeclampsia Precaution Educated on preeclampsia signs: severe headache, vision changes, right upper quadrant pain, sudden swelling. Advised urgent reporting of symptoms and discussed blood pressure monitoring if high risk. 5. Labor Precautions Reviewed labor signs: regular contractions, pelvic pressure, back pain, bleeding, or fluid leakage. Instructed to seek immediate care for these symptoms. 6. Lifestyle and Delivery Preparation Reinforced vitamins, nutrition, and safe activity. Discussed plan, pain management, and . Advised on labor preparation (e.g., hospital bag) and expectations. 7. Psychosocial Support Assessed emotional well-being and offered resources for mental health or parenting support.
== END 2024-12-16 11:53 | disposition home or self-care (01) ==
LOC: HODSOBC 11:33
PROVIDERS: Supervising Provider Obstetrics & Gynecology; Visit Provider Obstetrics & Gynecology
DX: O09.892 Supervision of other high risk pregnancies, second trimester (principal); Z3A.21 21 weeks gestation of pregnancy; O10.912 Unspecified pre-existing hypertension complicating pregnancy, second trimester; O99.352 Diseases of the nervous system complicating pregnancy, second trimester; G40.909 Epilepsy, unspecified, not intractable, without status epilepticus; O99.212 Obesity complicating pregnancy, second trimester; E66.01 Morbid (severe) obesity due to excess calories; O23.42 Unspecified infection of urinary tract in pregnancy, second trimester; O21.0 Mild hyperemesis gravidarum; O99.332 Smoking (tobacco) complicating pregnancy, second trimester; O99.342 Other mental disorders complicating pregnancy, second trimester; F31.9 Bipolar disorder, unspecified; F12.90 Cannabis use, unspecified, uncomplicated; O99.322 Drug use complicating pregnancy, second trimester; F17.210 Nicotine dependence, cigarettes, uncomplicated; Z71.6 Tobacco abuse counseling; Z79.899 Other long term (current) drug therapy
CPT/HCPCS: 99214; G0463

== ENCOUNTER 2025-01-01 08:42 | Outpatient (AMB) | payer MEDICAID, SELFPAY ==
[2025-01-01 08:50] VITALS: BP 109/71; PULSE 85; RESP 17; TEMP 36.5; O2SAT 98; BMI 41.7
--- NOTE | 2025-01-01 08:50 | OBCLNT_ITS ---
Vital Signs 01/01/25 08:50 Height 1.55 m Height Method Measured Weight 100.301 kg Weight Measurement Method Standing Scale BMI 41.7 BP 109/71 Blood Pressure Source Automatic Cuff Blood Pressure Location Right Upper Arm Position Sitting Respiration 17 Pulse 85 Pulse Source Monitor Temp 97.7 F Temp Source Temporal Artery Scan Pulse Oximetry (%) 98 Oxygen Delivery Method Room Air Allergies/Home Meds Allergies & Medications Allergies clavulanic acid (From Augmentin) Allergy (Severe, Verified 01/01/25 08:51) burning sensation amoxicillin (From Augmentin) Adverse Reaction (Severe, Verified 01/01/25 08:51) burning sensation ibuprofen Adverse Reaction (Severe, Verified 01/01/25 08:51) DUE TO KIDNEYS Medication Reconciliation labetalol 200 mg tablet 200 mg PO BID hypertention 30 days #60 tabs 09/02/24 [Rx Confirmed 01/01/25] lamotrigine 100 mg tablet 100 mg PO BID #60 tabs 10/08/24 [Rx Confirmed 01/01/25] metoclopramide HCl 10 mg tablet (Reglan) 10 mg PO ACHS PRN nausea and vomiting #30 tabs 10/08/24 [Rx Confirmed 01/01/25] pantoprazole 40 mg tablet,delayed release (Protonix) 40 mg PO QDAY #30 tabs 10/08/24 [Rx Confirmed 01/01/25] prednisone 5 mg tablet 5 mg PO QDAY #31 tabs 10/08/24 [Rx Confirmed 01/01/25] nifedipine 30 mg tablet,extended release 24 hr (Procardia XL) 30 mg PO QDAY #30 tabs 10/14/24 [Rx Confirmed 01/01/25] bupropion HCl 150 mg 24 hr tablet, extended release (Wellbutrin XL) 150 mg PO QAM 30 days #30 tabs 11/19/24 [Rx Confirmed 01/01/25] nicotine 14 mg/24 hr daily transdermal patch 1 patch transdermal QDAY 28 days #28 ea 11/19/24 [Rx Confirmed 01/01/25] Intake Visit Data Collection New Patient or Established: Established Patient (seen at [facility] within 3 years) Reason for Visit:: OBC\STD CHECK Consent obtained for Telemed Visit: No Seen by Clinical Staff ONLY (RN/MA): No Helpdesk Specialist Required: No Do You Feel Safe at Home: Yes Authorities Contacted: N/A PCP or OBGYN visit in last 3 months: Yes Date of Last PCP or OBGYN visit: 12/16/24 Hx Now: Yes Are you currently on any form of Control: No Pain Present Currently: Yes Pain Location: Abdomen Pain scale:: 8 Smoking Status Smoking Status: Current some day smoker Cessation Counseling Provided: MASSIEL was advised that quitting smoking is the single most important factor to protect the health of themselves and their family. Discussed the benefits of quitting smoking with patient. Encouraged patient to quit smoking and provided Cessation assistance materials and resources. Tobacco Use: Cigarette Years smoked: 5 Are you interested in Quitting?: No Questionnaires Covid-19 Vaccine Questionnaire Has patient been vacinated for Covid-19 Have you been vacinated for Covid-19: No PHQ-9 PHQ-2 Over the last 2 weeks, how often have you been bothered by any of the following problems? 1. Little interest or pleasure in doing things: several days PHQ-9 8. Moving or speaking so slowly that other people could have noticed? - Or the opposite - being so fidgety or restless that you have been moving around a lot more than usual: not at all Source: Developed by Drs. Terry Gomez, Daria Russell, Tylor Mendoza and colleagues, with an educational maryam from [employer]. 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 Patient has poor dates. History of irregular menses. She thinks her last period might have been July 03, 2024. Patient has a history of anxiety and depression. And she plans to schedule an appointment with her behavioral health counselor. She has stopped taking her behavioral health meds. Patient does not remember what she has been taking. She takes Metropol all for high blood pressure. Patient also has chronic neck pain and she has been taking Clinton for that but she states that since she had a positive test she stopped taking her. Currently she smokes an occasional cigarette through the [employer]. And she is smoking marijuana. She denies any SAB complaints. Reports tiredness and breast tenderness. She is taking vitamins. OB panel was ordered. I ordered 1 hour GTT, hemoglobin A1c.hcg. CBC with differential and CHEM panel. Was ordered. 24-hour protein also was ordered. And ordered ultrasound for dates and viability. SAB precautions. Patient to start labetalol 200 twice daily gave her 60 with 5 refills. And patient will also schedule an earlier appointment with Dr. Escobar to follow-up on her chronic health issues. Return in 4 weeks OB check 09/23/24 -?-?-?-?-?-?-?-?-?-?-?-?- 9w 3d 95.481 kg 116/73 absent 8 patient stopped taking norco and metropol for hypertention. advised to P/U and start Labetolol. I reviewed current medication with patient. she will continue PNV daily. start Labetolol 200 bis as directed, OK to continue with Ambien q hs for sleep. and continue Lamotrigine for PTSD and Bipolar. patient is also taking zofran as needed for nausea and pepcid for acid reflux. I discussed comfort measure for increased acid and N/V. we discussed SAB precaution. discussed dates, sono pending due to insurance problem. labs discussed. keep appointment with PCP/Dr Tirado in 2 week. OB check in 4 week for NIPT 10/14/24 -?-?-?-?-?-?-?-?-?-?-?-?- 12w 3d 87.09 kg 156/118 absent unknown 12 156 absent Patient discharge fro hospital. inpatient x 5 days for hyperemesis, DC home on Reglan 10mg daily. zofran and phenergan 25 mg supp tid. unable to keep down small bits of food and fluid. vomits constantly all day. she has not started phenergan. poor compliance with labetolol . consult with OB regarding BP. patient denies PIH complaints, no sab complaints NIPT and carrier screen. schedule MFM referral, start procardia 30mf XL immediately and RTC with OB 10/16/24 for BP check. review comfort measure for N/V, sab precaution NIPT and carrier screen. esther peña MFM referral, start procardia 30mf XL immediately and RTC with OB 10/16/24 for BP check. review comfort measure for N/V, sab precaution, NIPT, carrier screen 10/16/24 -?-?-?-?-?-?-?-?-?-?-?-?- 12w 5d 88.167 kg 124/82 Disregard note in Hx notes box (charted on wrong pt), correct note is here: 32yo @12w5d, severe hyperemesis (rec ent 5-day admission), low K+, chronic HTN on labetalol/Procardia, bipolar disorder on lamotrigine, insomnia. Plan: continue meds (Phenergan, Zofran, Reglan, Protonix, prednisone), refill prescriptions, labs for genetic testing, welfare note, check FHR by sashao when room available. 10/27/24 -?-?-?-?-?-?-?-?-?-?-?-?- 14w 2d 93.213 kg 108/72 absent unknown 14 156 absent doing alittle better. compliant with labetolol 100 bid and nifedipine 30mg XL daily, patient continue on omeprizole and pepcid for indigestion, taking phenergan 25 mg po and zofran for nausea. eating has improved and vomiting less, denies sab complaints, MFM appointment pending continue cur rent plan of management, nifedipine 30 XL daily and labeolol BID, comfort measure for N/V, sab precaution, patient will see OB in november. RTC 4 week 12/04/24 -?-?-?-?-?-?-?-?-?-?-?-?- 19w 5d 97.125 kg 108/70 absent unknown 19 156 absent Reports slight movement. Denies leaking, bleeding, contractions. Patient reports that she has had periods of feeling suicidal. This is not a new complaint for her she says patient sees and has virtual appointments with behavioral health monthly. Patient just spoke with behavioral health counselor a week ago and she is aware of her thoughts towards suicide. Patient reports she has an appointment with M in a week. She is taking prenatals. She has concerns because she has limited family support both from the father of the baby and his family and her family. Right now she is safe she lives with her cousin and that makes her happy. Continue nifedip ine 30 XL and labetalol 100 twice daily as directed. Patient will continue Pepcid for indigestion. Patient is taking Lamictal lamotrigine for PTSD and she is to continue taking that. Continue comfort measures for nausea. Patient has a follow-up appointment with behavioral health in a month. But I advised patient to do a walk-in today at [facility] for behavioral health. aFP today. Keep appointment with maternal- medicine for 12 December. And patient has a follow-up with Dr. Ricks for OB check in a week and to follow-up on blood pressures. Increase fluids. Discussed labor precautions. 01/01/25 -?-?-?-?-?-?-?-?-?-?-?-?- 23w 5d 100.301 kg 109/71 absent unknown 23 135 active Feeling better today. Denies labor symptoms. Patient is here to rule out STDs. She reports that she thinks her boyfriend is cheating. Positive movement. Denies any bleeding denies cramping denies leaking fluids. Urine: protein-,NIT- Continue nifedipine 30 XL and labetalol. Patient to get third trimester labs and PIH labs. Discussed labor precautions. Discussed safe sex. New swab today. Patient will be vigilant about STDs. And keep appointment with OB on January 14. IVONNE Calculator Estimated Delivery Date Method Current WG Current Estimate 04/25/25 Ultrasound #1 23w 5d Other Estimates 04/09/25 LMP (Uncertain) 26w 0d 04/29/25 Ultrasound #2 23w 1d Notes Visit Date: 10/27/24 Last Updated by: Chika Jacobo CNM 29 yo . ivonne: 04/25/25. O+,abs-, rpr;;nr, rub IM, hiv-,HC-, HBSAG-, gc/ct-, A1: 5.7 Visit Date: 10/14/24 Last Updated by: Chika Jacobo CNM 6/3: start procardia 30mg XL. continue Labetolol 200 bid Visit Date: 09/23/24 Last Updated by: Chika Jacobo CNM 29 yo iup 8 week poor dates. HX of: PTSD, Anxiety. BiPolar and hypertention. . LMP 07/03/24. EDC 04/09/25. O+,abs-,rpr;;nr, rub NI, hbsag-,hiv-,HC-, GC/CT-, early 1 hr GTT was 93 A1c: 5.7 Office Procedures OB Clinic LOC & Office Proc's Nursing/Assessment Patient Status: Established Patient OB Clinic Nursing Assessment: Medication Reconciliation, Update PMH in EMR and Vital Signs OB Clinic Coordination of Care: Complex Care and Chronic Disease 1-5, Consen t,records obtained, informed consent and Lab and Imaging orders Special Needs: Heart tones Miscellaneous Interventions: Blood/Urine Collection Established Patient Charge Established Patient Point Assignment: 135 Established Patient Point Charge: EP Level 4 (120-155) Assessment & Plan Diagnosis / Problem List (1) Encounter for supervision of high risk in second trimester, antepartum: Status: Acute Plan keep appt 01/14 with OB, Nuswab plus, discuss safe sex. f/u with therapist. continue meds, hydrate. ptl precaution. Additional Plan Follow Up: 4 Weeks (obc)
== END 2025-01-01 10:01 | disposition home or self-care (01) ==
LOC: HODSOBC 08:42
PROVIDERS: Supervising Provider Advanced Practice Midwife; Visit Provider Advanced Practice Midwife
DX: O09.892 Supervision of other high risk pregnancies, second trimester (principal); O10.912 Unspecified pre-existing hypertension complicating pregnancy, second trimester; Z3A.23 23 weeks gestation of pregnancy; O99.332 Smoking (tobacco) complicating pregnancy, second trimester; F17.210 Nicotine dependence, cigarettes, uncomplicated; Z71.6 Tobacco abuse counseling; Z79.899 Other long term (current) drug therapy; Z88.6 Allergy status to analgesic agent; Z88.0 Allergy status to penicillin
CPT/HCPCS: 99214; G0463

== ENCOUNTER 2025-01-14 11:40 | Outpatient (AMB) | payer MEDICAID, SELFPAY ==
[2025-01-14 11:43] VITALS: BP 117/69; PULSE 102; RESP 16; TEMP 36.2; O2SAT 98; BMI 41.2
--- NOTE | 2025-01-14 11:43 | OBCLNT_ITS ---
Vital Signs 01/14/25 11:43 Height 1.55 m Height Method Stated Weight 98.997 kg Weight Measurement Method Standing Scale BMI 41.2 BP 117/69 Blood Pressure Source Automatic Cuff Blood Pressure Location Left Upper Arm Position Sitting Respiration 16 Pulse 102 H Pulse Source Monitor Temp 97.2 F Temp Source Oral Pulse Oximetry (%) 98 Oxygen Delivery Method Room Air Allergies/Home Meds Allergies & Medications Allergies clavulanic acid (From Augmentin) Allergy (Severe, Verified 01/14/25 11:44) burning sensation amoxicillin (From Augmentin) Adverse Reaction (Severe, Verified 01/14/25 11:44) burning sensation ibuprofen Adverse Reaction (Severe, Verified 01/14/25 11:44) DUE TO KIDNEYS Medication Reconciliation labetalol 200 mg tablet 200 mg PO BID hypertention 30 days #60 tabs 09/02/24 [Rx Confirmed 01/14/25] lamotrigine 100 mg tablet 100 mg PO BID #60 tabs 10/08/24 [Rx Confirmed 01/14/25] metoclopramide HCl 10 mg tablet (Reglan) 10 mg PO ACHS PRN nausea and vomiting #30 tabs 10/08/24 [Rx Confirmed 01/14/25] pantoprazole 40 mg tablet,delayed release (Protonix) 40 mg PO QDAY #30 tabs 10/08/24 [Rx Confirmed 01/14/25] prednisone 5 mg tablet 5 mg PO QDAY #31 tabs 10/08/24 [Rx Confirmed 01/14/25] nifedipine 30 mg tablet,extended release 24 hr (Procardia XL) 30 mg PO QDAY #30 tabs 10/14/24 [Rx Confirmed 01/14/25] bupropion HCl 150 mg 24 hr tablet, extended release (Wellbutrin XL) 150 mg PO QAM 30 days #30 tabs 11/19/24 [Rx Confirmed 01/14/25] nicotine 14 mg/24 hr daily transdermal patch 1 patch transdermal QDAY 28 days #28 ea 11/19/24 [Rx Confirmed 01/14/25] Intake Visit Data Collection New Patient or Established: Established Patient (seen at [facility] within 3 years) Reason for Visit:: OBC Seen by Clinical Staff ONLY (RN/MA): No Ditch Rider Required: No Do You Feel Safe at Home: Yes Authorities Contacted: N/A PCP or OBGYN visit in last 3 months: Yes Date of Last PCP or OBGYN visit: 01/01/25 Hx Now: Yes Are you currently on any form of Control: No Pain Present Currently: No Pain Scale Used: Najera-Saleem/Numerical Pain scale:: 0 Smoking Status Smoking Status: Current some day smoker Cessation Counseling Provided: MASSIEL was advised that quitting smoking is the single most important factor to protect the health of themselves and their family. Discussed the benefits of quitting smoking with patient. Encouraged patient to quit smoking and provided Cessation assistance materials and resources. Tobacco Use: Cigarette Years smoked: 10 Are you interested in Quitting?: No Would you like additional Smoking Cessation Counseling?: Yes Questionnaires Covid-19 Vaccine Questionnaire Has patient been vacinated for Covid-19 Have you been vacinated for Covid-19: No PHQ-9 PHQ-2 Over the last 2 weeks, how often have you been bothered by any of the following problems? 1. Little interest or pleasure in doing things: not at all 2. Feeling down, depressed, or hopeless: not at all Total score: 0 PHQ-9 3. Trouble falling or staying asleep, or sleeping too much: Not at all 4. Feeling tired or having little energy: Not at all 5. Poor appetite or overeating: Not at all 6. Feeling bad about yourself - or that you are a failure or have let yourself or your family down: Not at all 7. Trouble concentrating on things, such as reading the newspaper or watching television: Not at all 8. Moving or speaking so slowly that other people could have noticed? - Or the opposite - being so fidgety or restless that you have been moving around a lot more than usual: not at all 9. Thoughts that you would be better off or of hurting yourself in some way: Not at all Total score: 0 If you checked off any problems, how difficult have these problems made it for you to do your work, take care of things at home, or get along with other people?: not difficult at all Source: Developed by Drs. Terry Gomez, Daria Russell, Tylor Mendoza and colleagues, with an educational maryam from [employer]. Depression screen completed yes 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 Feel Safe at Home: Yes [employer]: Past Medical History Past Medical History: No Hx Neurological Disorders, Yes Hx Cardiac Disorders, Yes Hx Hypertension, No Hx Blood Disorders, No Hx Anemia, Yes Hx Gastroint estinal Disorders, No Hx Renal Disease, No Hx Diabetes Mellitus Type 1 and No Hx Diabetes Mellitus Type 2 Care OB Visit Log OB Flowsheet Initial Weight: Not Recorded Date -?-?-?-?-?-?-?-?-?-?-?-?- EGA Weight BP Alb Glu CTX Pres Fundal ht FHR Mov Dilation Station Effacement Hx Notes Visit Note 09/02/24 -?-?-?-?-?-?-?-?-?-?-?-?- 6w 3d 94.461 kg 127/70 absent 29-year-old 2 para 0 for first OB visit. Patient has poor dates. History of irregular menses. She thinks her last period might have been July 03, 2024. Patient has a history of anxiety and depression. And she plans to schedule an appointment with her behavioral health counselor. She has stopped taking her behavioral health meds. Patient does not remember what she has been taking. She takes Metropol all for high blood pressure. Patient also has chronic neck pain and she has been taking Potwin for that but she states that since she had a positive test she stopped taking her. Currently she smokes an occasional cigarette through the week. And she is smoking marijuana. She denies any SAB complaints. Reports tiredness and breast tenderness. She is taking vitamins. OB panel was ordered. I ordered 1 hour GTT, hemoglobin A1c.hcg. CBC with differential and CHEM panel. Was ordered. 24-hour protein also was ordered. And ordered ultrasound for dates and viability. SAB precautions. Patient to start labetalol 200 twice daily gave her 60 with 5 refills. And patient will also schedule an earlier appointment with Dr. Escobar to follow-up on her chronic health issues. Return in 4 weeks OB check 09/23/24 -?-?-?-?-?-?-?-?-?-?-?-?- 9w 3d 95.481 kg 116/73 absent 8 patient stopped taking norco and metropol for hypertention. advised to P/U and start Labetolol. I reviewed current medication with patient. she will continue PNV daily. start Labetolol 200 bis as directed, OK to continue with Ambien q hs for sleep. and continue Lamotrigine for PTSD and Bipolar. patient is also taking zofran as needed for nausea and pepcid for acid reflux. I discussed comfort measure for increased acid and N/V. we discussed SAB precaution. discussed dates, sono pending due to insurance problem. labs discussed. keep appointment with PCP/Dr Tirado in 2 week. OB check in 4 week for NIPT 10/14/24 -?-?-?-?-?-?-?-?-?-?-?--?- 12w 3d 87.09 kg 156/118 absent unknown 12 156 absent Patient discharge fro hospital. inpatient x 5 days for hyperemesis, DC home on Reglan 10mg daily. zofran and phenergan 25 mg supp tid. unable to keep down small bits of food and fluid. vomits constantly all day. she has not started phenergan. poor compliance with labetolol . consult with OB regarding BP. patient denies PIH complaints, no sab complaints NIPT and carrier screen. schedule MFM referral, start procardia 30mf XL immediately and RTC with OB 10/16/24 for BP check. review comfort measure for N/V, sab precaution NIPT and carrier screen. esther peña MFM referral, start procardia 30mf XL immediately and RTC with OB 10/16/24 for BP check. review comfort measure for N/V, sab precaution, NIPT, carrier screen 10/16/24 -?-?-?-?-?-?-?-?-?-?-?-?- 12w 5d 88.167 kg 124/82 Disregard note in Hx notes box (charted on wrong pt), correct note is here: 32yo @12w5d, severe hyperemesis (rec ent 5-day admission), low K+, chronic HTN on labetalol/Procardia, bipolar disorder on lamotrigine, insomnia. Plan: continue meds (Phenergan, Zofran, Reglan, Protonix, prednisone), refill prescriptions, labs for genetic testing, welfare note, check FHR by sono when room available. 10/27/24 -?-?-?-?-?-?-?-?-?-?-?-?- 14w 2d 93.213 kg 108/72 absent unknown 14 156 absent doing alittle better. compliant with labetolol 100 bid and nifedipine 30mg XL daily, patient continue on omeprizole and pepcid for indigestion, taking phenergan 25 mg po and zofran for nausea. eating has improved and vomiting less, denies sab complaints, MFM appointment pending continue cur rent plan of management, nifedipine 30 XL daily and labeolol BID, comfort measure for N/V, sab precaution, patient will see OB in november. RTC 4 week 12/04/24 -?-?-?-?-?-?-?-?-?-?-?-?- 19w 5d 97.125 kg 108/70 absent unknown 19 156 absent Reports slight movement. Denies leaking, bleeding, contractions. Patient reports that she has had periods of feeling suicidal. This is not a new complaint for her she says patient sees and has virtual appointments with behavioral health monthly. Patient just spoke with behavioral health counselor a week ago and she is aware of her thoughts towards suicide. Patient reports she has an appointment with MFM in a week. She is taking prenatals. She has concerns because she has limited family support both from the father of the baby and his family and her family. Right now she is safe she lives with her cousin and that makes her happy. Continue nifedip ine 30 XL and labetalol 100 twice daily as directed. Patient will continue Pepcid for indigestion. Patient is taking Lamictal lamotrigine for PTSD and she is to continue taking that. Continue comfort measures for nausea. Patient has a follow-up appointment with behavioral health in a month. But I advised patient to do a walk-in today at [facility] for behavioral health. aFP today. Keep appointment with maternal- medicine for 12 December. And patient has a follow-up with Dr. Ricks for OB check in a week and to follow-up on blood pressures. Increase fluids. Discussed labor precautions. 01/01/25 -?-?-?-?-?-?-?-?-?-?-?-?- 23w 5d 100.301 kg 109/71 absent unknown 23 135 active Feeling better today. Denies labor symptoms. Patient is here to rule out STDs. She reports that she thinks her boyfriend is cheating. Positive movement. Denies any bleeding denies cramping denies leaking fluids. Urine: protein-,NIT- Continue nifedipine 30 XL and labetalol. Patient to get third trimester labs and PIH labs. Discussed labor precautions. Discussed safe sex. New swab today. Patient will be vigilant about STDs. And keep appointment with OB on January 14. 01/14/25 -?-?-?-?-?-?-?-?-?-?-?-?- 25w 4d 98.997 kg 117/69 absent unknown 25 145 active 2, para 1 at 25 weeks and 4 days gestation with multiple comorbidities including chronic hypertension, recurrent UTIs, seizure disorder, bipolar disorder, hyperemesis, nicotine dependence, and obesity. Recent M ultrasound revealed short cervical length of 5.7, but labor was ruled out. Patient reports fatigue and dry skin, likely due to inadequate fluid intake. heart rate is 153 bpm, which is within normal range. One-hour glucose test results were elevated, necessitating a 3-hour glucose tolerance test. Awaiting possible cardiac ultrasound for the fetus. - Sche dule 3-hour glucose test due to high one-hour te st results - Continue taking vitamins with folic acid; extra folic acid recommended due to seizure medications - Take vitamin D3 supplement (one pill d aily) - Increase fluid intake to at least 32 o unces of water daily - Follow up in 4 weeks - Attend next appointment at [facility] on February 23 - Call if glucose test results are abnor mal - Await possible cardiac ultrasound for the baby IVONNE Calculator Estimated Delivery Date Method Current WG Current Estimate 04/25/25 Ultrasound #1 25w 4d Other Estimates 04/09/25 LMP (Uncertain) 27w 6d 04/29/25 Ultrasound #2 25w 0d Specific Issue/Plans - , second trimester - Chronic hypertension - Recurrent urinary tract infections - Seizure disorder - Bipolar disorder - Hyperemesis gravidarum - Nicotine dependence - Obesity - Short cervical length - Abnormal glucose tolerance test Notes Visit Date: 10/27/24 Last Updated by: Chika Jacobo CNM 29 yo . ivonne: 04/25/25. O+,abs-, rpr;;nr, rub IM, hiv-,HC-, HBSAG-, gc/ct-, A1: 5.7 Visit Date: 10/14/24 Last Updated by: Chika Jacobo CNM 6/: start procardia 30mg XL. continue Labetolol 200 bid Visit Date: 09/23/24 Last Updated by: Chika Jacobo CNM 29 yo iup 8 week poor dates. HX of: PTSD, Anxiety. BiPolar and hypertention. . LMP 07/03/24. EDC 04/09/25. O+,abs-,rpr;;nr, rub NI, hbsag-,hiv-,HC-, GC/CT-, early 1 hr GTT was 93 A1c: 5.7 Office Procedures OB Clinic LOC & Office Proc's Nursing/Assessment Patient Status: Established Patient OB Clinic Nursing Assessment: Medication Reconciliation, Update PMH in EMR and Vital Signs OB Clinic Coordination of Care: Education Complex Pt/Fam, Consent,records obtained, informed consent, Lab and Imaging orders, Results/Orders obtained and Staff clarify orders Special Needs: Heart tones Established Patient Charge Established Patient Point Assignment: 115 Established Patient Point Charge: EP Level 3 (80-115)
== END 2025-01-14 11:57 | disposition home or self-care (01) ==
LOC: HODSOBC 11:40
PROVIDERS: Supervising Provider Obstetrics & Gynecology; Visit Provider Obstetrics & Gynecology
DX: O09.892 Supervision of other high risk pregnancies, second trimester (principal); O10.912 Unspecified pre-existing hypertension complicating pregnancy, second trimester; O99.342 Other mental disorders complicating pregnancy, second trimester; F31.9 Bipolar disorder, unspecified; O99.212 Obesity complicating pregnancy, second trimester; O99.352 Diseases of the nervous system complicating pregnancy, second trimester; G40.909 Epilepsy, unspecified, not intractable, without status epilepticus; Z3A.25 25 weeks gestation of pregnancy; O21.0 Mild hyperemesis gravidarum; O99.332 Smoking (tobacco) complicating pregnancy, second trimester; F17.210 Nicotine dependence, cigarettes, uncomplicated; Z71.6 Tobacco abuse counseling; Z87.440 Personal history of urinary (tract) infections; Z88.1 Allergy status to other antibiotic agents; Z88.0 Allergy status to penicillin; Z79.899 Other long term (current) drug therapy
CPT/HCPCS: 99213; G0463

== ENCOUNTER 2025-02-09 12:19 | Observation (INO) | payer MEDICAID, SELFPAY ==
[2025-02-09] VITALS (11 sets, daily range): BP systolic 123; BP diastolic 70; PULSE 79–96; RESP 18–99; TEMP 36.6; O2SAT 99–100; BMI 42.5
== END 2025-02-09 13:53 | disposition home or self-care (01) ==
PROVIDERS: Admitting Provider Obstetrics & Gynecology; Visit Provider Obstetrics & Gynecology
DX: O36.8130 Decreased fetal movements, third trimester, not applicable or unspecified (principal); Z3A.29 29 weeks gestation of pregnancy
CPT/HCPCS: 59025; 59899

== ENCOUNTER 2025-02-11 10:43 | Outpatient (AMB) | payer MEDICAID, SELFPAY ==
[2025-02-11 11:13] VITALS: BP 108/73; PULSE 95; RESP 18; TEMP 36.2; O2SAT 97; BMI 41.9
--- NOTE | 2025-02-11 11:13 | OBCLNT_ITS ---
Vital Signs 02/11/25 11:13 Height 1.55 m Height Method Stated Weight 100.754 kg Weight Measurement Method Standing Scale BMI 41.9 BP 108/73 Blood Pressure Source Automatic Cuff Blood Pressure Location Left Upper Arm Position Sitting Respiration 18 Pulse 95 Pulse Source Monitor Temp 97.1 F Temp Source Oral Pulse Oximetry (%) 97 Oxygen Delivery Method Room Air Allergies/Home Meds Allergies & Medications Allergies clavulanic acid (From Augmentin) Allergy (Severe, Verified 02/11/25 11:14) burning sensation amoxicillin (From Augmentin) Adverse Reaction (Severe, Verified 02/11/25 11:14) burning sensation ibuprofen Adverse Reaction (Severe, Verified 02/11/25 11:14) DUE TO KIDNEYS Medication Reconciliation lamotrigine 100 mg tablet 100 mg PO BID #60 tabs 10/08/24 [Rx Confirmed ] metoclopramide HCl 10 mg tablet (Reglan) 10 mg PO ACHS PRN nausea and vomiting #30 tabs 10/08/24 [Rx Confirmed 02/11/25] pantoprazole 40 mg tablet,delayed release (Protonix) 40 mg PO QDAY #30 tabs 10/08/24 [Rx Confirmed 02/11/25] prednisone 5 mg tablet 5 mg PO QDAY #31 tabs 10/08/24 [Rx Confirmed 02/11/25] nifedipine 30 mg tablet,extended release 24 hr (Procardia XL) 30 mg PO QDAY #30 tabs 10/14/24 [Rx Confirmed 02/11/25] bupropion HCl 150 mg 24 hr tablet, extended release (Wellbutrin XL) 150 mg PO QAM 30 days #30 tabs 11/19/24 [Rx Confirmed 02/11/25] nicotine 14 mg/24 hr daily transdermal patch 1 patch transdermal QDAY 28 days #28 ea 11/19/24 [Rx Confirmed 02/11/25] labetalol 200 mg tablet 200 mg PO BID hypertention 30 days #60 tabs 02/11/25 [Rx] nitrofurantoin monohydrate/macrocrystals 100 mg capsule (Macrobid) 100 mg PO Q12H 7 days #14 caps 02/11/25 [Rx] Intake Visit Data Collection New Patient or Established: Established Patient (seen at [facility] within 3 years) Reason for Visit:: CARE Seen by Clinical Staff ONLY (RN/MA): No Test Engineering Technician Required: No Do You Feel Safe at Home: Yes Authorities Contacted: N/A PCP or OBGYN visit in last 3 months: Yes Hx Now: Yes Are you currently on any form of Control: No Pain Present Currently: No Pain Scale Used: Najera-Saleem/Numerical Smoking Status Smoking Status: Current some day smoker Cessation Counseling Provided: MASSIEL was advised that quitting smoking is the single most important factor to protect the health of themselves and their family. Discussed the benefits of quitting smoking with patient. Encouraged patient to quit smoking and provided Cessation assistance materials and resources. Tobacco Use: Cigarette Years smoked: 25 Are you interested in Quitting?: Yes Would you like additional Smoking Cessation Counseling?: Yes Questionnaires Covid-19 Vaccine Questionnaire Has patient been vacinated for Covid-19 Have you been vacinated for Covid-19: No PHQ-9 PHQ-2 Over the last 2 weeks, how often have you been bothered by any of the following problems? 1. Little interest or pleasure in doing things: not at all 2. Feeling down, depressed, or hopeless: not at all Total score: 0 PHQ-9 3. Trouble falling or staying asleep, or sleeping too much: Not at all 4. Feeling tired or having little energy: Not at all 5. Poor appetite or overeating: Not at all 6. Feeling bad about yourself - or that you are a failure or have let yourself or your family down: Not at all 7. Trouble concentrating on things, such as reading the newspaper or watching television: Not at all 8. Moving or speaking so slowly that other people could have noticed? - Or the opposite - being so fidgety or restless that you have been moving around a lot more than usual: not at all 9. Thoughts that you would be better off or of hurting yourself in some way: Not at all Total score: 0 Source: Developed by Drs. Terry Gomez, Daria Russell, Tylor Mendoza and colleagues, with an educational maryam from [email or web address]. 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 Patient has poor dates. History of irregular menses. She thinks her last period might have been July 03, 2024. Patient has a history of anxiety and depression. And she plans to schedule an appointment with her behavioral health counselor. She has stopped taking her behavioral health meds. Patient does not remember what she has been taking. She takes Metropol all for high bl ood pressure. Patient also has chronic neck pain and she has been taking [place] for that but she states that since she had a positive test she stopped taking her. Currently she smokes an occasional cigarette through the week. And she is smoking marijuana. She denies any SAB complaints. Reports tiredness and breast tenderness. She is taking vitamins. OB panel was ordered. I ordered 1 hour GTT, hemoglobin A1c.hcg. CBC with differential and CHEM panel. Was ordered. 24-hour protein also was ordered. And ordered ultrasound for dates and viability. SAB precautions. Patient to start labetalol 200 twice daily gave her 60 with 5 refills. And patient will also schedule an earlier appointment with Dr. Escobar to follow-up on her chronic health issues. Return in 4 weeks OB check 09/23/24 -?-?-?-?-?-?-?-?-?-?-?-?- 9w 3d 95.481 kg 116/73 absent 8 patient stopped taking norco and metropol for hypertention. advised to P/U and start Labetolol. I reviewed current medication with patient. she will continue PNV daily. start Labetolol 200 bis as directed, OK to continue with Ambien q hs for sleep. and continue Lamotrigine for PTSD and Bipolar. patient is also taking zofran as needed for nausea and pepcid for acid reflux. I discussed comfort measure for increased acid and N/V. we discussed SAB precaution. discussed dates, sono pending due to insurance problem. labs discussed. keep appointment with PCP/Dr Tirado in 2 week. OB check in 4 week for NIPT 10/14/24 -?-?-?-?-?-?-?-?-?-?-?-?- 12w 3d 87.09 kg 156/118 absent unknown 12 156 absent Patient discharge fro hospital. inpatient x 5 days for hyperemesis, DC home on Reglan 10mg daily. zofran and phenergan 25 mg supp tid. unable to keep down small bits of food and fluid. vomits constantly all day. she has not started phenergan. poor compliance with labetolol . consult with OB regarding BP. patient denies PIH complaints, no sab complaints NIPT and alison er screen. schedule MFM referral, start procardia 30mf XL immediately and RTC with OB 10/16/24 for BP check. review comfort measure for N/V, sab precaution NIPT and carrier screen. esther peña MFM referral, start procardia 30mf XL immediately and RTC with OB 10/16/24 for BP check. review comfort measure for N/V, sab precaution, NIPT, carrier screen 10/16/24 -?-?-?-?-?-?-?-?-?-?-?-?- 12w 5d 88.167 kg 124/82 Disregard note in Hx notes box (charted on wrong pt), correct note is here: 32yo @12w5d, severe hyperemesis (rec ent 5-day admission), low K+, chronic HTN on labetalol/Procardia, bipolar disorder on lamotrigine, insomnia. Plan: continue meds (Phenergan, Zofran, Reglan, Protonix, prednisone), refill prescriptions, labs for genetic testing, welfare note, check FHR by josé miguel when room available. 10/27/24 -?-?-?-?-?-?-?-?-?-?-?-?- 14w 2d 93.213 kg 108/72 absent unknown 14 156 absent doing alittle better. compliant with labetolol 100 bid and nifedipine 30mg XL daily, patient continue on omeprizole and pepcid for indigestion, taking phenergan 25 mg po and zofran for nausea. eating has improved and vomiting less, denies sab complaints, [facility] appointment pending continue cur rent plan of management, nifedipine 30 XL daily and labeolol BID, comfort measure for N/V, sab precaution, patient will see OB in november. RTC 4 week 11/19/24 -?-?-?-?-?-?-?-?-?-?-?-?- 17w 4d 96.388 kg 127/87 absent unknown 145 absent Patient reports nausea and vomiting. Patient denies cramping and abdominal pain. Patient reports headache. Denies VC, and epigastric pain. - Continue routine care - Follow up in 4 weeks - Complete referral process for level 2 ultrasound at [facility] - Perform blood work today (specific julee ts not mentioned) - Continue Zofran as needed for nausea a nd vomiting - Advised patient to carry Zofran with h er at all times - Reassured patient that symptoms typica lly improve as progresses - Prescribe nicotine patches as a safer alternative to smoking during - Educate patient on risks of smoking du ring and benefits of cessation - Prescribe Wellbutrin for anxiety and t o aid in smoking cessation - Informed patient that Wellbutrin is safe in and can help with anxiety without causing drowsiness 12/04/24 -?-?-?-?-?-?-?-?-?-?-?-?- 19w 5d 97.125 kg 108/70 absent unknown 19 156 absent Reports slight movement. Denies leaking, bleeding, contractions. Patient reports that she has had periods of feeling suicidal. This is not a new complaint for her she says patient sees and has virtual appointments with behavioral health monthly. Patient just spoke with behavioral health counselor a week ago and she is aware of her thoughts towards suicide. Patient reports she has an appointment with [facility] in a week. She is taking prenatals. She has concerns because she has limited family support both from the father of the baby and his family and her family. Right now she is safe she lives with her cousin and that makes her happy. Continue nifedip ine 30 XL and labetalol 100 twice daily as directed. Patient will continue Pepcid for indigestion. Patient is taking Lamictal lamotrigine for PTSD and she is to continue taking that. Continue comfort measures for nausea. Patient has a follow-up appointment with behavioral health in a month. But I advised patient to do a walk-in today at [facility] for behavioral health. aFP today. Keep appointment with maternal- medicine for 12 December. And patient has a follow-up with Dr. Ricks for OB check in a week and to follow-up on blood pressures. Increase fluids. Discussed labor precautions. 01/01/25 -?-?-?-?-?-?-?-?-?-?--?-?- 23w 5d 100.301 kg 109/71 absent unknown 23 135 active Feeling better today. Denies labor symptoms. Patient is here to rule out STDs. She reports that she thinks her boyfriend is cheating. Positive movement. Denies any bleeding denies cramping denies leaking fluids. Urine: protein-,NIT- Continue nifedipine 30 XL and labetalol. Patient to get third trimester labs and PIH labs. Discussed labor precautions. Discussed safe sex. New swab today. Patient will be vigilant about STDs. And keep appointment with OB on January 14. 01/14/25 -?-?-?-?-?-?-?-?-?-?-?-?- 25w 4d 98.997 kg 117/69 absent unknown 25 145 active 2, para 1 at 25 weeks and 4 days gestation with multiple comorbidities including chronic hypertension, recurrent UTIs, seizure disorder, bipolar disorder, hyperemesis, nicotine dependence, and obesity. Recent MFM ultrasound revealed short cervical length of 5.7, but labor was ruled out. Patient reports fatigue and dry skin, likely due to inadequate fluid intake. heart rate is 153 bpm, which is within normal range. One-hour glucose test results were elevated, necessitating a 3-hour glucose tolerance test. Awaiting possible cardiac ultrasound for the fetus. - Jessica reveles 3-hour glucose test due to high one-hour test results - Continue taking vitamins with folic acid; extra folic acid recommended due to seizure medications - Take vitamin D3 supplement (one pill d aily) - Increase fluid intake to at least 32 o unces of water daily - Follow up in 4 weeks - Attend next appointment at [facility] on February 23 - Call if glucose test results are abnor mal - Await possible cardiac ultrasound for the baby 02/11/25 -?-?-?-?-?-?-?-?-?-?-?-?- 29w 4d 100.754 kg 108/73 absent unknown 30 150 active - She has a history of short cervical length measuring 5.7 millimeters at 25 weeks gestation. - labor was ruled out at that time. - Patient has chronic hypertension with superimposed urinary tract infection. - Currently on labetalol and Procardia for blood pressure management. - Completed a 5-day course of antibiot ics for UTI after her last appointment. - She has a past medical history of bipo lar disorder and nicotine dependence. - Currently taking lamotrigine and bup ropion. - [facility]. - Patient had an abnormal 1-hour glucose tolerance test and a 3-hour glucose tolerance test was ordered. - She completed the 3-hour glucose tolerance test and results are pending. Plan - Order CBC at the emergency room - Obtain 3-hour glucose tolerance test r esults (if not completed or insufficient, repeat at next visit if needed) - Follow up in 2 weeks IVONNE Calculator Estimated Delivery Date Method Current WG Current Estimate 04/25/25 Ultrasound #1 30w 1d Other Estimates 04/09/25 LMP (Uncertain) 32w 3d 04/29/25 Ultrasound #2 29w 4d Specific Issue/Plans - , second trimester - Chronic hypertension - Recurrent urinary tract infections - Seizure disorder - Bipolar disorder - Hyperemesis gravidarum - Nicotine dependence - Obesity - Short cervical length - Abnormal glucose tolerance test Notes Visit Date: 11/19/24 Last Updated by: Brian Friedman MD Risk and Safety Assessment - Current Risk: - Patient reports smoking cigarettes (2-3 per day from November 08 to November 15) - History of marijuana use - Patient experiencing significant emotional distress (crying or angry all the time ) - Patient reports anxiety and racing heart - Protective Factors: - Patient is engaged in care - Patient is willing to consider medication changes for anxiety and smoking cessation - Safety Factors: - Patient denies concerns about personal safety when asked - Patient states regarding partner: I don't think he cares enough to harm me Visit Date: 10/27/24 Last Updated by: Chika Jacobo CNM 29 yo . ivonne: 04/25/25. O+,abs-, rpr;;nr, rub IM, hiv-,HC-, HBSAG-, gc/ct-, A1: 5.7 Visit Date: 10/14/24 Last Updated by: Chika Jacobo CNM 10/14: start procardia 30mg XL. continue Labetolol 200 bid Visit Date: 09/23/24 Last Updated by: Chika Jacobo CNM 29 yo iup 8 week poor dates. HX of: PTSD, Anxiety. BiPolar and hypertention. . LMP 07/03/24. EDC 04/09/25. O+,abs-,rpr;;nr, rub NI, hbsag-,hiv-,HC-, GC/CT-, early 1 hr GTT was 93 A1c: 5.7 Office Procedures OBC Clinic LOC & Office Proc's Nursing/Assessment Patient Status: Established Patient OB Clinic Nursing Assessment: Medication Reconciliation, Update PMH in EMR and Vital Signs OB Clinic Coordination of Care: Complex Care and Chronic Disease 1-5, Consent,records obtained, informed consent, Education Simp Pt/Fam, 1 Ins Authorization, Lab and Imaging orders, Results/Orders obtained and Staff clarify orders Special Needs: Heart tones Established Patient Charge Established Patient Point Assignment: 150 Established Patient Point Charge: EP Level 4 (120-155) Assessment & Plan Diagnosis / Problem List (1) Cervical shortening, second trimester: Status: Acute (2) Pre-existing essential hypertension complicating , second trimester: Status: Acute (3) Unspecified infection of urinary tract in , second trimester: Status: Acute (4) Bipolar disorder, unspecified: Status: Acute (5) Nicotine dependence, cigarettes, uncomplicated: Status: Acute (6) Abnormal glucose complicating : Status: Acute (7) with 29 completed weeks gestation: Status: Acute Plan Problem List - Short cervical length - Chronic hypertension - Urinary tract infection - Bipolar disorder - Nicotine dependence - Gestational diabetes mellitus Assessment 29-week 4-day gestation in a patient with short cervical length measuring 5.7 millimeters at 25 weeks with labor previously ruled out. Patient has chronic hypertension with superimposed urinary tract infection, currently managed with labetalol and Procardia, with recent completion of 5-day antibiotic course. History of bipolar disorder managed with lamotrigine and bupropion, and nicotine dependence with prescribed nicotine patches for cessation. Abnormal 1- hour glucose tolerance test with 3-hour glucose tolerance test completed, results pending. Plan - Order CBC at the emergency room - Obtain 3-hour glucose tolerance test results (if not completed or insufficient, repeat at next visit if needed) - Follow up in 2 weeks 1. Progress Reviewed gestational age, growth, and heart rate. Planned frequent visits (every 2 weeks until 36 weeks, then weekly). 2. Instructed patient to monitor movements and report decreases immediately. 3. Testing Counseled on routine third-trimester labs per guidelines. Discussed potential need for ultrasound or monitoring based on risk factors. 4. Preeclampsia Precaution Educated on preeclampsia signs: severe headache, vision changes, right upper quadrant pain, sudden swelling. Advised urgent reporting of symptoms and discussed blood pressure monitoring if high risk. 5. Labor Precautions Reviewed labor signs: regular contractions, pelvic pressure, back pain, bleeding, or fluid leakage. Instructed to seek immediate care for these symptoms. 6. Lifestyle and Delivery Preparation Reinforced vitamins, nutrition, and safe activity. Discussed plan, pain management, and . Advised on labor preparation (e.g., hospital bag) and expectations. 7. Psychosocial Support Assessed emotional well-being and offered resources for mental health or parenting support.
== END 2025-02-11 11:33 | disposition home or self-care (01) ==
PROVIDERS: Supervising Provider Obstetrics & Gynecology; Visit Provider Obstetrics & Gynecology
DX: O09.893 Supervision of other high risk pregnancies, third trimester (principal); O26.873 Cervical shortening, third trimester; O10.013 Pre-existing essential hypertension complicating pregnancy, third trimester; O23.43 Unspecified infection of urinary tract in pregnancy, third trimester; O99.343 Other mental disorders complicating pregnancy, third trimester; F31.9 Bipolar disorder, unspecified; O99.333 Smoking (tobacco) complicating pregnancy, third trimester; O99.810 Abnormal glucose complicating pregnancy; Z3A.29 29 weeks gestation of pregnancy; F17.210 Nicotine dependence, cigarettes, uncomplicated; Z71.6 Tobacco abuse counseling; O99.213 Obesity complicating pregnancy, third trimester; Z88.6 Allergy status to analgesic agent; Z88.1 Allergy status to other antibiotic agents; Z88.0 Allergy status to penicillin; Z79.899 Other long term (current) drug therapy
CPT/HCPCS: 99214; G0463

== ENCOUNTER 2025-02-17 14:40 | Observation (INO) | payer MEDICAID, SELFPAY ==
[2025-02-17 14:40] VITALS: BP 122/80; PULSE 91; RESP 16; RESP 99; TEMP 37; BMI 43.2
[2025-02-17 15:13] VITALS: BP 122/80; PULSE 91
[2025-02-17 16:04] VITALS: BP 120/63; PULSE 74
[2025-02-17] MEDS: ONDANSETRON ODT 4 MG TABRAP PO (16:09)
[2025-02-17 16:24] VITALS: BP 102/54; PULSE 72
[2025-02-17 16:31] LABS: Collection Type, Urine Clean Catch
[2025-02-17 16:39] LABS: Bilirubin,Urine Negative (Negative); Blood,Urine Negative (Negative); Clarity,Urine Clear (Clear/Hazy); Color,Urine Yellow (Lt Yel-Yel); Glucose, Urine 1+ (Negative); Ketones,Urine Negative (Negative); Leukocyte Esterase,Urine Negative (Negative); Nitrite,Urine Negative (Negative); PH,Urine 6.5 (5.0-7.0); Protein,Urine Negative (Neg - Trace); RBC,Urine 3 /hpf (0-3); Specific Gravity,Urine 1.016 (1.001-1.035); Squamous Epithelial Cell,Urine 3 /hpf (0-5); Urobilinogen,Urine Negative mg/dL (0.0-1.0); WBC,Urine 3 /hpf (0-5)
[2025-02-17 16:44] VITALS: BP 104/57; PULSE 76
== END 2025-02-17 17:00 | disposition home or self-care (01) ==
PROVIDERS: Admitting Provider Obstetrics & Gynecology; Visit Provider Obstetrics & Gynecology
DX: O36.8130 Decreased fetal movements, third trimester, not applicable or unspecified (principal); O26.893 Other specified pregnancy related conditions, third trimester; R25.2 Cramp and spasm; R42 Dizziness and giddiness; R06.02 Shortness of breath; Z3A.30 30 weeks gestation of pregnancy
CPT/HCPCS: 59025; 59899; 81001; Q0162

== ENCOUNTER 2025-02-20 15:37 | Observation (INO) | payer MEDICAID, SELFPAY ==
[2025-02-20 15:49] VITALS: BP 128/74; PULSE 81; RESP 18; RESP 98; TEMP 36.8; BMI 42.3
[2025-02-20 15:53] VITALS: BP 128/74; PULSE 81
[2025-02-20] MEDS: ONDANSETRON INJ 2 MG/ML INJ 2 ML 4 MG IVP (16:44)
--- NOTE | 2025-02-20 17:16 | PD.LDPN ---
Documentation for date of: 02/20/25 OB Labor Progress Note Pelvic Exam Amniotic membrane status: Intact Assessment and Plan Comments: Triage visit for nausea/vomiting Saima is a 29yo with SIUP at 30&6wk presenting to L&D for 3 days of not being able to keep down oral intake 2/2 nausea/vomiting. She denies sick contacts. She denies diarrhea. No fevers/chills. She notes no painful/regular ctx, no vaginal bleeding, no loss of fluid. Normal movement. PMhx/PNC significant for: - Short cervical length - Chronic hypertension - Urinary tract infection - Bipolar disorder and hx of anxiety/depression/PTSD - Nicotine dependence - Marijuana use with an admission at 10wk for cyclic vomiting vs hyperemesis with electrolyte correction - Chronic neck pain managed with opiates until +hcg - Gestational diabetes mellitus - Care with Dr. Elder ANDREA negative other than what was described above. Vitals wnl, afebrile General: well developed, well nourished, no acute distress, conversant Cardiac: normal heart rate Lungs: breathing without distress Abdomen: soft, gravid, non-tender, no rebound or guarding Extremities: noedema BLE NST: Reactive, +accels, no decels, mod jomar [place]: no regular ctx pattern Assessment: Saima is a 29yo with SIUP at 30&6wk with n/v, likely related to viral gastritis. After 1L IVF and IV zofran, she is feeling better and was able to tolerate PO challenge. FHRT is Cat I. Vitals wnl, benign exam. Plan: -Discussed diagnosis and recommendations for good hydration -BRAT diet -Follow up at routine OB visit as scheduled -Discussed return precautions. Gissell Siddiqui MD
== END 2025-02-20 18:05 | disposition home or self-care (01) ==
PROVIDERS: Admitting Provider Obstetrics & Gynecology; Visit Provider Obstetrics & Gynecology
DX: O21.2 Late vomiting of pregnancy (principal); O26.893 Other specified pregnancy related conditions, third trimester; R10.9 Unspecified abdominal pain; Z3A.30 30 weeks gestation of pregnancy
CPT/HCPCS: 59025; 59899; 96374; J2405

== ENCOUNTER 2025-02-23 15:43 | Observation (INO) | payer MEDICAID, SELFPAY ==
[2025-02-23 15:50] VITALS: BMI 41.8
[2025-02-23 15:58] VITALS: BP 111/72; PULSE 93
[2025-02-23 15:59] VITALS: BP 111/72; PULSE 93; RESP 18; RESP 99; TEMP 36.8
[2025-02-23] MEDS: ONDANSETRON INJ 2 MG/ML INJ 2 ML 4 MG IVP (16:27)
[2025-02-23] MEDS: RINGERS LACTATED 1000 ML 1,000 ML 999 ML IV (16:28)
[2025-02-23 16:48] LABS: Alanine Aminotransferase 10 U/L (10-49); Albumin, Serum 4.0 gm/dL (3.5-5.0); Albumin/Globulin Ratio 1.7 (1.2-2.2); Alkaline Phosphatase 117 U/L (46-116); Anion Gap 11 (7-16); Aspartate Amino Transferase < 8 U/L (0-34); BUN/Creatinine Ratio 10 Ratio (12-20); Bilirubin,Total 0.5 mg/dL (0.3-1.2); Blood Urea Nitrogen 6 mg/dL (9-23); Calcium 8.9 mg/dL (8.3-10.6); Calcium (Corrected) 8.9 mg/dL (8.5-10.1); Carbon Dioxide 23.0 mMol/L (20.0-31.0); Chloride 106 mMol/L (98-107); Creatinine (Component) 0.6 mg/dL (0.6-1.3); Estimated Creatinine Clearance 150.3 mL/min (>60); Globulin 2.3 gm/dL (2.3-3.5); Glucose 117 mg/dL (74-106); Osmolality,Calculated 278 (275-295); Potassium 3.1 mMol/L (3.4-5.1); Sodium 140 mMol/L (136-145); Total Protein 6.3 gm/dL (5.7-8.2); eGFR > 60 See Note
--- NOTE | 2025-02-23 17:16 | ESPR_ITS ---
Documentation for date of: 02/23/25 OB Labor Progress Note Pelvic Exam Amniotic membrane status: Intact Assessment and Plan Comments: Triage visit for nausea/vomiting Saima is a 29yo with SIUP at 31&2wk presenting to L&D for not being able to keep down oral intake 2/2 nausea/vomiting. She came in on 02/20 for same concern- received IVF and IV zofran and was able to tolerate PO intake after that. She has zofran at home which she tried, but did not address her symptoms. She denies sick contacts. She denies diarrhea. No fevers/chills. She notes no painful/regular ctx, no vaginal bleeding, no loss of fluid. Normal movement. PMhx/PNC significant for: - Short cervical length - Chronic hypertension - Urinary tract infection - Bipolar disorder and hx of anxiety/depression/PTSD - Nicotine dependence - Marijuana use with an admission at 10wk for cyclic vomiting vs hyperemesis with electrolyte correction - Chronic neck pain managed with opiates until +hcg - Gestational diabetes mellitus - Care with Dr. Elder ANDREA negative other than what was described above. Vitals wnl, afebrile General: well developed, well nourished, no acute distress, conversant Cardiac: normal heart rate Lungs: breathing without distress Abdomen: soft, gravid, non-tender, no rebound or guarding Extremities: no edema BLE NST: Reassuring for gestational age, +accels, no decels, mod jomar [place]: no regular ctx pattern Labs: CMP shows K+ 3.1 Assessment: Saima is a 29yo with SIUP at 31&2wk with n/v. After 1L IVF, IV zofran and 40meq KCl PO, she is feeling better and was able to tolerate PO challenge. FHRT is Cat I. Vitals wnl, benign exam. Plan: -Discussed diagnosis and recommendations for good hydration -Rx rectal phenergan 12.5mg Q8hr prn emesis (try oral meds first, and if they do not treat sx, then take the phenergan) -Follow up at routine OB visit as scheduled -Discussed return precautions. Gissell Siddiqui MD
== END 2025-02-23 17:45 | disposition home or self-care (01) ==
PROVIDERS: Admitting Provider Obstetrics & Gynecology; Visit Provider Obstetrics & Gynecology
DX: O21.2 Late vomiting of pregnancy (principal); Z3A.31 31 weeks gestation of pregnancy
CPT/HCPCS: 36415; 59025; 59899; 80053; J2405; J7120; A9270

== ENCOUNTER 2025-02-25 14:26 | Observation (INO) | payer MEDICAID, SELFPAY ==
[2025-02-25] VITALS (24 sets, daily range): BP systolic 113–117; BP diastolic 65–71; PULSE 75–95; RESP 18–99; TEMP 36.8; O2SAT 91–100; BMI 41.6
--- NOTE | 2025-02-25 15:27 | XR_ITS ---
EXAMINATION: Transvaginal pelvic sonography limited TECHNIQUE: Limited transvaginal pelvic sonographic images Date and time: February 25, 2025, 1646 hours INDICATIONS: Pelvic contractions, unknown cervical length FINDINGS: Cervix 5.2 cm closed IMPRESSION: Cervix 5.2 cm
[2025-02-25] MEDS: RINGERS LACTATED 1000 ML 1,000 ML 999 ML IV (15:45)
[2025-02-25] MEDS: ONDANSETRON INJ 2 MG/ML INJ 2 ML 4 MG IVP (15:54)
--- NOTE | 2025-02-25 16:33 | XR_ITS ---
EXAMINATION: Biophysical profile Date and time: February 25, 2025, 1646 hours INDICATIONS: wellbeing, unknown cervical length, pelvic contractions today TECHNIQUE AND FINDINGS: Biophysical profile includes assessment body movement, breathing motion, tone, and qualitative ARUNA Body movement: 2 Breathing motion: 2 tone: 2 Qualitative ARUNA: 2 IMPRESSION: Biophysical profile 8 of 8
--- NOTE | 2025-02-25 17:30 | ESPR_ITS ---
Documentation for date of: 02/25/25 OB Labor Progress Note Pelvic Exam Amniotic membrane status: Intact Contractions Monitor mode: External Contraction frequency: 0 Status status: Category l Assessment and Plan Comments: Saima is a 29yo with SIUP at 31&4wk presenting to L&D for not being able to keep down oral intake 2/2 nausea/vomiting the past two days and contractions.. She came in on 02/20 and 02/23 for same concern- received IVF and IV zofran both times and was able to tolerate PO intake after that. She was prescribed rectal phenergan after last visit, but hasn't picked it up from pharmacy yet. She denies sick contacts. She denies diarrhea. No fevers/chills. She notes no vaginal bleeding, no loss of fluid. Normal movement. PMhx/PNC significant for: - Chronic hypertension - Urinary tract infection - Bipolar disorder and hx of anxiety/depression/PTSD - Nicotine dependence - Marijuana use with an admission at 10wk for cyclic vomiting vs hyperemesis with electrolyte correction - Chronic neck pain managed with opiates until +hcg - Gestational diabetes mellitus - Care with Dr. Elder ANDREA negative other than what was described above. Vitals wnl, afebrile General: well developed, well nourished, no acute distress, conversant Cardiac: normal heart rate Lungs: breathing without distress Abdomen: soft, gravid, non-tender, no rebound or guarding Extremities: no edema BLE NST: Reassuring for gestational age with bl 130's, +accels, no decels, mod jomar [place]: ctx that resolved with IVF Radiology: -Transvaginal ultrasound: cervical length 5.7 centimeters -BPP: 12/19 Assessment: Saima is a 29yo with SIUP at 31&4wk with n/v, ctx. After 1L IVF and IV zofran, she is feeling better and was able to tolerate PO challenge. Ctx fully resolved. FHRT is Cat I. Vitals wnl, benign exam. Notably, she has dx of short cervix on chart, but cervical length done today for pre-term ctx initially when she came in. I reviewed images and cervical length is normal at 5.7cm. She does not have shortened cervix. 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 Gissell Siddiqui MD
== END 2025-02-25 18:17 | disposition home or self-care (01) ==
PROVIDERS: Admitting Provider Obstetrics & Gynecology; PCP Internal Medicine; Visit Provider Obstetrics & Gynecology
DX: O47.03 False labor before 37 completed weeks of gestation, third trimester (principal); O21.2 Late vomiting of pregnancy; Z3A.31 31 weeks gestation of pregnancy
CPT/HCPCS: 59025; 59899; 76817; 76819; 96374; J2405; J7120

== ENCOUNTER 2025-03-04 08:42 | Outpatient (AMB) | payer MEDICAID, SELFPAY ==
[2025-03-04 08:58] VITALS: BP 108/70; PULSE 86; RESP 16; TEMP 36.4; O2SAT 98; BMI 41.8
--- NOTE | 2025-03-04 08:58 | OBCLNT_ITS ---
Vital Signs 03/04/25 08:58 Height 1.55 m Height Method Stated Weight 100.414 kg Weight Measurement Method Standing Scale BMI 41.8 BP 108/70 Blood Pressure Source Automatic Cuff Blood Pressure Location Right Upper Arm Position Sitting Respiration 16 Pulse 86 Pulse Source Monitor Temp 97.5 F Temp Source Temporal Artery Scan Pulse Oximetry (%) 98 Oxygen Delivery Method Room Air Allergies/Home Meds Allergies & Medications Allergies clavulanic acid (From Augmentin) Allergy (Severe, Verified 04/15/25 20:16) burning sensation amoxicillin (From Augmentin) Adverse Reaction (Severe, Verified 04/15/25 20:16) burning sensation ibuprofen Adverse Reaction (Severe, Verified 04/15/25 20:16) DUE TO KIDNEYS Medication Reconciliation bupropion HCl 150 mg 24 hr tablet, extended release (Wellbutrin XL) 150 mg PO QAM 30 days #30 tabs 03/04/25 [Rx Confirmed 04/15/25] hydroxyzine HCl 10 mg tablet 10 mg PO TID PRN anxiety #10 tabs 03/04/25 [Rx Confirmed 04/15/25] pantoprazole 40 mg tablet,delayed release (Protonix) 40 mg PO QDAY 90 days #90 tabs 03/04/25 [Rx Confirmed 04/15/25] Lactobacillus 40-Bifidobact 3-S.thermophilus 100 billion cell capsule (Probiotic) 2 cap PO DAILY 04/15/25 [History Confirmed 04/15/25] cetirizine 10 mg tablet (All Day Allergy (cetirizine)) 10 mg PO QDAY PRN allergy symptoms 04/15/25 [History Confirmed 04/15/25] cholecalciferol (vitamin D3) 50 mcg (2,000 unit) capsule 2,000 unit PO QDAY 04/15/25 [History Confirmed 04/15/25] lamotrigine 100 mg tablet 100 mg PO DAILY UD 04/15/25 [History Confirmed 04/15/25] omega 5-bfm-cpz-fish oil 900 mg-1,400 mg capsule,delayed release (Fish Oil) 2 cap PO DAILY 04/15/25 [History Confirmed 04/15/25] vitamins no.180-ferrous fumarate 27 mg-folic acid 1 mg tablet ( Plus Vitamin-Mineral) 2 tab PO DAILY 04/15/25 [History Confirmed 04/15/25] docusate sodium 100 mg capsule (Colace) 100 mg PO BID #20 caps 04/16/25 [Rx] labetalol 200 mg tablet 200 mg PO BID 30 days #60 tabs 04/17/25 [Rx] Intake Visit Data Collection New Patient or Established: Established Patient (seen at [facility] within 3 years) Reason for Visit:: /LAB RESULTS Seen by Clinical Staff ONLY (RN/MA): No Associate Teacher Required: No Do You Feel Safe at Home: Yes Authorities Contacted: N/A PCP or OBGYN visit in last 3 months: Yes Hx Now: Yes Are you currently on any form of Control: No Pain Present Currently: Yes Pain Location: Unable to identify Pain Scale Used: Najera-Saleem/Numerical Pain scale:: 5 Smoking Status Smoking Status: Current some day smoker Cessation Counseling Provided: MASSIEL was advised that quitting smoking is the single most important factor to protect the health of themselves and their family. Discussed the benefits of quitting smoking with patient. Encouraged patient to quit smoking and provided Cessation assistance materials and resources. Tobacco Use: Cigarette Years smoked: 15 Are you interested in Quitting?: Yes Would you like additional Smoking Cessation Counseling?: Yes Immunizations Flu Vaccine in the Last 12 Months: No Questionnaires Covid-19 Vaccine Questionnaire Has patient been vacinated for Covid-19 Have you been vacinated for Covid-19: Yes PHQ-9 PHQ-2 Over the last 2 weeks, how often have you been bothered by any of the following problems? 1. Little interest or pleasure in doing things: not at all 2. Feeling down, depressed, or hopeless: not at all Total score: 0 PHQ-9 3. Trouble falling or staying asleep, or sleeping too much: Not at all 4. Feeling tired or having little energy: Not at all 5. Poor appetite or overeating: Not at all 6. Feeling bad about yourself - or that you are a failure or have let yourself or your family down: Not at all 7. Trouble concentrating on things, such as reading the newspaper or watching television: Not at all 8. Moving or speaking so slowly that other people could have noticed? - Or the opposite - being so fidgety or restless that you have been moving around a lot more than usual: not at all 9. Thoughts that you would be better off or of hurting yourself in some way: Not at all Total score: 0 If you checked off any problems, how difficult have these problems made it for you to do your work, take care of things at home, or get along with other people?: not difficult at all Source: Developed by Drs. Terry Gomez, Daria Russell, Tylor Mendoza and colleagues, with an educational maryam from [employer]. 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 Patient has poor dates. History of irregular menses. She thinks her last period might have been July 03, 2024. Patient has a history of anxiety and depression. And she plans to schedule an appointment with her behavioral health counselor. She has stopped taking her behavioral health meds. Patient does not remember what she has been taking. She takes Metropol all for high blood pressure. Patient also has chronic neck pain and she has been taking [place] for that but she states that since she had a positive test she stopped taking her. Currently she smokes an occasional cigarette through the week. And she is smoking marijuana. She denies any SAB complaints. Reports tiredness and breast tenderness. She is taking vitamins. OB panel was ordered. I ordered 1 hour GTT, hemoglobin A1c.hcg. CBC with differential and CHEM panel. Was ordered. 24-hour protein also was ordered. And ordered ultrasound for dates and viability. SAB precautions. Patient to start labetalol 200 twice daily gave her 60 with 5 refills. And patient will also schedule an earlier appointment with Dr. Escobar to follow-up on her chronic health issues. Return in 4 weeks OB check 09/23/24 -?-?-?-?-?-?-?-?-?-?-?-?- 9w 3d 95.481 kg 116/73 absent 8 patient stopped taking norco and metropol for hypertention. advised to P/U and start Labetolol. I reviewed current medication with patient. she will continue PNV daily. start Labetolol 200 bis as directed, OK to continue with Ambien q hs for sleep. and continue Lamotrigine for PTSD and Bipolar. patient is also taking zofran as needed for nausea and pepcid for acid reflux. I discussed comfort measure for increased acid and N/V. we discussed SAB precaution. discussed dates, sono pending due to insurance problem. labs discussed. keep appointment with PCP/Dr Tirado in 2 week. OB check in 4 week for NIPT 10/14/24 -?-?-?-?-?-?-?-?-?-?-?-?- 12w 3d 87.09 kg 156/118 absent unknown 12 156 absent Patient discharge fro hospital. inpatient x 5 days for hyperemesis, DC home on Reglan 10mg daily. zofran and phenergan 25 mg supp tid. unable to keep down small bits of food and fluid. vomits constantly all day. she has not started phenergan. poor compliance with labetolol . consult with OB regarding BP. patient denies PIH complaints, no sab complaints NIPT and alison er screen. schedule MFM referral, start procardia 30mf XL immediately and RTC with OB 10/16/24 for BP check. review comfort measure for N/V, sab precaution NIPT and carrier screen. esther peña MFM referral, start procardia 30mf XL immediately and RTC with OB 10/16/24 for BP check. review comfort measure for N/V, sab precaution, NIPT, carrier screen 10/16/24 -?-?-?-?-?-?-?-?-?-?-?-?- 12w 5d 88.167 kg 124/82 Disregard note in Hx notes box (charted on wrong pt), correct note is here: 32yo @12w5d, severe hyperemesis (rec ent 5-day admission), low K+, chronic HTN on labetalol/Procardia, bipolar disorder on lamotrigine, insomnia. Plan: continue meds (Phenergan, Zofran, Reglan, Protonix, prednisone), refill prescriptions, labs for genetic testing, welfare note, check FHR by sono when room available. 10/27/24 -?-?-?-?-?-?-?-?-?-?-?-?- 14w 2d 93.213 kg 108/72 absent unknown 14 156 absent doing alittle better. compliant with labetolol 100 bid and nifedipine 30mg XL daily, patient continue on omeprizole and pepcid for indigestion, taking phenergan 25 mg po and zofran for nausea. eating has improved and vomiting less, denies sab complaints, MFM ap pointment pending continue curre nt plan of management, nifedipine 30 XL daily and labeolol BID, comfort measure for N/V, sab precaution, patient will see OB in november. RTC 4 week 11/19/24 -?-?-?-?-?-?-?-?-?-?-?-?- 17w 4d 96.388 kg 127/87 absent unknown 145 absent Patient reports nausea and vomiting. Patient denies cramping and abdominal pain. Patient reports headache. Denies VC, and epigastric pain. - Continue routine care - Follow up in 4 weeks - Complete referral process for level 2 ultrasound at [facility] - Perform blood work today (specific julee ts not mentioned) - Continue Zofran as needed for nausea a nd vomiting - Advised patient to carry Zofran with h er at all times - Reassured patient that symptoms typica lly improve as progresses - Prescribe nicotine patches as a safer alternative to smoking during - Educate patient on risks of smoking du ring and benefits of cessation - Prescribe Wellbutrin for anxiety and t o aid in smoking cessation - Informed patient that Wellbutrin is safe in and can help with anxiety without causing drowsiness 12/04/24 -?-?-?-?-?-?-?-?-?-?-?-?- 19w 5d 97.125 kg 108/70 absent unknown 19 156 absent Reports slight movement. Denies leaking, bleeding, contractions. Patient reports that she has had periods of feeling suicidal. This is not a new complaint for her she says patient sees and has virtual appointments with behavioral health monthly. Juan waite just spoke with behavioral health counselor a week ago and she is aware of her thoughts towards suicide. Patient reports she has an appointment with [facility] in a week. She is taking prenatals. She has concerns because she has limited family support both from the father of the baby and his family and her family. Right now she is safe she lives with her cousin and that makes her happy. Con tinue nifedipine 30 XL and labetalol 100 twice daily as directed. Patient will continue Pepcid for indigestion. Patient is taking Lamictal lamotrigine for PTSD and she is to continue taking that. Continue comfort measures for nausea. Patient has a follow-up appointment with behavioral health in a month. But I advised patient to do a walk-in today at [facility] for behavioral health. aFP today. Keep appointment with maternal- medicine for 12 December. And patient has a follow-up with Dr. Ricks for OB check in a week and to follow-up on blood pressures. Increase fluids. Discussed labor precautions. 12/16/24 -?-?-?-?-?-?-?-?-?-?-?-?- 21w 3d 97.692 kg 138/82 absent unknown 21 140 absent - Patient reports severe stress due to partner's infidelity. - Medication regimen includes: - Labetalol for chronic hypertension - Lamotrigine for seizure disorder - Wellbutrin (started at last appointm ent) - Reglan - Nicotine patches (resumed smoking, n ow using patches) - Procardia - Protonix - Social history: - Mother is partially paralyzed and re siding in a local facility - Recent healthcare interactions: - Ultrasound performed with Maternal-F etal Medicine on 12/12/2024 - Visited [facility] for heart evaluation Plan - Administer antibiotics for urinary tra ct infection, 5-day course - Order echocardiogram to assess cardiac function in relation to hypertension - Refer to cardiology for consultation - Continue current medications: labetalo l, lamotrigine, Reglan, nicotine patches, Procardia, Protonix, Wellbutrin - Start aspirin 81mg daily for preeclamp patricio prevention - Obtain lab work as ordered - Follow up in one month - Schedule third trimester screening and internal testing - Plan for elective delivery at 38 weeks 01/01/25 -?-?-?-?-?-?-?-?-?-?-?-?- 23w 5d 100.301 kg 109/71 absent unknown 23 135 active Feeling better today. Denies labor symptoms. Patient is here to rule out STDs. She reports that she thinks her boyfriend is cheating. Positive movement. Denies any bleeding denies cramping denies leaking fluids. Urine: protein-,NIT- Continue nifedipine 30 XL and labetalol. Patient to get third trimester labs and PIH labs. Discussed labor precautions. Discussed safe sex. New swab today. Patient will be vigilant about STDs. And keep appointment with OB on January 14. 01/14/25 -?-?-?-?-?-?-?-?-?-?-?-?- 25w 4d 98.997 kg 117/69 absent unknown 25 145 active 2, para 1 at 25 weeks and 4 days gestation with multiple comorbidities including chronic hypertension, recurrent UTIs, seizure disorder, bipolar disorder, hyperemesis, nicotine dependence, and obesity. Recent MFM ultrasound revealed short cervical length of 5.7, but labor was ruled out. Patient reports fatigue and dry skin, likely due to inadequate fluid intake. heart rate is 153 bpm, which is within normal range. One-hour glucose test results were elevated, necessitating a 3-hour glucose tolerance test. Awaiting possible cardiac ultrasound for the fetus. - Sche dule 3-hour glucose test due to high one-hour test results - Continue taking vitamins with folic acid; extra folic acid recommended due to seizure medications - Take vitamin D3 supplement (one pill d aily) - Increase fluid intake to at least 32 o unces of water daily - Follow up in 4 weeks - Attend next appointment at [facility] on February 23 - Call if glucose test results are abnor mal - Await possible cardiac ultrasound for the baby 02/11/25 -?-?-?-?-?-?-?-?-?-?-?-?- 29w 4d 100.754 kg 108/73 absent unknown 30 150 active - She has a history of short cervical length measuring 5.7 millimeters at 25 weeks gestation. - labor was ruled out at that time. - Patient has chronic hypertension with superimposed urinary tract infection. - Currently on labetalol and Procardia for blood pressure management. - Completed a 5-day course of antibiot ics for UTI after her last appointment. - She has a past medical history of bipo lar disorder and nicotine dependence. - Currently taking lamotrigine and bup ropion. - [facility]. - Patient had an abnormal 1-hour glucose tolerance test and a 3-hour glucose tolerance test was ordered. - She completed the 3-hour glucose tolerance test and results are pending. Plan - Order CBC at the emergency room - Obtain 3-hour glucose tolerance test r esults (if not completed or insufficient, repeat at next visit if needed) - Follow up in 2 weeks 03/04/25 -?-?-?-?-?-?-?-?-?-?-?-?- 32w 4d 100.414 kg 108/70 absent cephalic 32 14 5 active - She reports recent hospitalizations for persistent vomiting and throwing up. - Patient experiences daily vomiting, oc curring every single day as soon as she wakes up. - Reports this is the longest period w ithout vomiting in recent time (4-5 days), though frequency has decreased rather than completely resolved. - Current medications for nausea include Zofran, oral promethazine (which she does not take), suppositories (which she has not used), and B6 taken daily. - She has both pill form and sublingua l Zofran but cannot locate the sublingual form. - The constant vomiting and acid reflux has caused yellowing of her teeth, which is causing her distress as her teeth have always been white. - Baby movement is present but currently quiet, described as taking a nap with occasional movement. - Patient mentions needing to see a spec ialist for echocardiogram but is unclear about the referral location. - Continue Zofran and B6 for nausea management - Prescribe sublingual Zofran (ondansetr on) - Recommend using promethazine supposito adri for nausea control - Order A1c, CBC, and CMP laboratory julee ts - Administer Tdap vaccination - Coordinate referral for echocard iogram - Follow up in 2 weeks IVONNE Calculator Estimated Delivery Date Method Current WG Current Estimate 04/25/25 Ultrasound #1 41w 5d Other Estimates 04/09/25 LMP (Uncertain) 44w 0d 04/29/25 Ultrasound #2 41w 1d Specific Issue/Plans - , second trimester - Chronic hypertension - Recurrent urinary tract infections - Seizure disorder - Bipolar disorder - Hyperemesis gravidarum - Nicotine dependence - Obesity - Short cervical length - Abnormal glucose tolerance test Notes Visit Date: 12/16/24 Last Updated by: Brian Friedman MD Problem List - , 21 weeks 3 days - Chronic hypertension - Urinary tract infection - Seizure disorder - Bipolar disorder - Hyperemesis gravidarum - Nicotine dependence - Obesity - Marijuana use Visit Date: 11/19/24 Last Updated by: Brian Friedman MD Risk and Safety Assessment - Current Risk: - Patient reports smoking cigarettes (2-3 per day from November 08 to November 15) - History of marijuana use - Patient experiencing significant emotional distress (crying or angry all the time ) - Patient reports anxiety and racing heart - Protective Factors: - Patient is engaged in care - Patient is willing to consider medication changes for anxiety and smoking cessation - Safety Factors: - Patient denies concerns about personal safety when asked - Patient states regarding partner: I don't think he cares enough to harm me Visit Date: 10/27/24 Last Updated by: Chika Jacobo CNM 29 yo . ivonne: 04/25/25. O+,abs-, rpr;;nr, rub IM, hiv-,HC-, HBSAG-, gc/ct-, A1: 5.7 Visit Date: 10/14/24 Last Updated by: Chika Jacobo CNM 10/14: start procardia 30mg XL. continue Labetolol 200 bid Visit Date: 09/23/24 Last Updated by: Chika Jacobo CNM 29 yo iup 8 week poor dates. HX of: PTSD, Anxiety. BiPolar and hypertention. . LMP 07/03/24. EDC 04/09/25. O+,abs-,rpr;;nr, rub NI, hbsag-,hiv-,HC-, GC/CT-, early 1 hr GTT was 93 A1c: 5.7 Office Procedures [facility] LOC & Office Proc's Nursing/Assessment Patient Status: Established Patient OB Clinic Nursing Assessment: Medication Reconciliation, Update PMH in EMR and Vital Signs OB Clinic Coordination of Care: Complex Care and Chronic Disease 1-5, Education Complex Pt/Fam, Consent,records obtained, informed consent, Lab and Imaging orders, Results/Orders obtained and Staff clarify orders Special Needs: Heart tones Established Patient Charge Established Patient Point Assignment: 140 Established Patient Point Charge: EP Level 4 (120-155) Assessment & Plan Diagnosis / Problem List (1) Nicotine dependence, cigarettes, uncomplicated: Status: Acute (2) Bipolar disorder, unspecified: Status: Acute (3) Supervision of high risk , unspecified, third trimester: Status: Acute Plan Problem List - Hyperemesis gravidarum - at 32 weeks 4 days gestation Assessment 32-week 4-day patient () presenting with persistent hyperemesis gravidarum requiring recent hospitalizations. Patient reports daily vomiting upon awakening with some improvement over the past 4-5 days, representing the longest period without vomiting. Current medications include Zofran, oral promethazine (not regularly taken), suppositories (unused), and daily B6. Patient experiencing dental discoloration secondary to chronic acid exposure from vomiting. heart rate documented at 132 bpm, which is normal. Patient reports decreased movement at time of visit, attributed to sleep cycle. Plan - Continue Zofran and B6 for nausea management - Prescribe sublingual Zofran (ondansetron) - Recommend using promethazine suppositories for nausea control - Order A1c, CBC, and CMP laboratory tests - Administer Tdap vaccination - Coordinate referral for echocardiogram - Follow up in 2 weeks 1. Progress Reviewed gestational age (32 weeks 4 days), growth, and heart rate (132 bpm, normal). Planned frequent visits (every 2 weeks until 36 weeks, then weekly). 2. Instructed patient to monitor movements and report decreases immediately. 3. Testing Counseled on routine third-trimester labs per guidelines (A1c, CBC, CMP ordere d). Discussed potential need for ultrasound or monitoring based on risk factors ( echo referral being arranged). 4. Preeclampsia Precaution Educated on preeclampsia signs: severe headache, vision changes, right upper quadrant pain, sudden swelling. Advised urgent reporting of symptoms and discussed blood pressure monitoring if high risk. 5. Labor Precautions Reviewed labor signs: regular contractions, pelvic pressure, back pain, bleeding, or fluid leakage. Instructed to seek immediate care for these symptoms. 6. Lifestyle and Delivery Preparation Reinforced vitamins, nutrition, and safe activity. Discussed plan, pain management, and . Advised on labor preparation (e.g., hospital bag) and expectations. 7. Psychosocial Support Assessed her emotional well-being and offered resources for mental health or parenting support.
== END 2025-03-04 09:33 | disposition home or self-care (01) ==
LOC: HODSOBC 08:42
PROVIDERS: Supervising Provider Obstetrics & Gynecology; Visit Provider Obstetrics & Gynecology
DX: O09.893 Supervision of other high risk pregnancies, third trimester (principal); O21.0 Mild hyperemesis gravidarum; O99.343 Other mental disorders complicating pregnancy, third trimester; F31.9 Bipolar disorder, unspecified; O99.333 Smoking (tobacco) complicating pregnancy, third trimester; F17.210 Nicotine dependence, cigarettes, uncomplicated; O10.913 Unspecified pre-existing hypertension complicating pregnancy, third trimester; O99.613 Diseases of the digestive system complicating pregnancy, third trimester; K21.9 Gastro-esophageal reflux disease without esophagitis; Z3A.32 32 weeks gestation of pregnancy; Z88.6 Allergy status to analgesic agent; Z88.1 Allergy status to other antibiotic agents; Z88.0 Allergy status to penicillin
CPT/HCPCS: 99214; G0463

== ENCOUNTER 2025-03-19 13:14 | Outpatient (AMB) | payer MEDICAID, SELFPAY ==
[2025-03-19 13:28] VITALS: BP 124/79; PULSE 98; RESP 18; TEMP 36.2; O2SAT 98; BMI 42.5
--- NOTE | 2025-03-19 13:28 | OBCLNT_ITS ---
Vital Signs 03/19/25 13:28 Height 1.55 m Height Method Stated Weight 102.058 kg Weight Measurement Method Standing Scale BMI 42.5 BP 124/79 Blood Pressure Source Automatic Cuff Blood Pressure Location Left Upper Arm Position Sitting Respiration 18 Pulse 98 Pulse Source Monitor Temp 97.2 F Temp Source Oral Pulse Oximetry (%) 98 Oxygen Delivery Method Room Air Allergies/Home Meds Allergies & Medications Allergies clavulanic acid (From Augmentin) Allergy (Severe, Verified 04/15/25 20:16) burning sensation amoxicillin (From Augmentin) Adverse Reaction (Severe, Verified 04/15/25 20:16) burning sensation ibuprofen Adverse Reaction (Severe, Verified 04/15/25 20:16) DUE TO KIDNEYS Medication Reconciliation bupropion HCl 150 mg 24 hr tablet, extended release (Wellbutrin XL) 150 mg PO QAM 30 days #30 tabs 03/04/25 [Rx Confirmed 04/15/25] hydroxyzine HCl 10 mg tablet 10 mg PO TID PRN anxiety #10 tabs 03/04/25 [Rx Confirmed 04/15/25] pantoprazole 40 mg tablet,delayed release (Protonix) 40 mg PO QDAY 90 days #90 tabs 03/04/25 [Rx Confirmed 04/15/25] Lactobacillus 40-Bifidobact 3-S.thermophilus 100 billion cell capsule (Probiotic) 2 cap PO DAILY 04/15/25 [History Confirmed 04/15/25] cetirizine 10 mg tablet (All Day Allergy (cetirizine)) 10 mg PO QDAY PRN allergy symptoms 04/15/25 [History Confirmed 04/15/25] cholecalciferol (vitamin D3) 50 mcg (2,000 unit) capsule 2,000 unit PO QDAY 04/15/25 [History Confirmed 04/15/25] lamotrigine 100 mg tablet 100 mg PO DAILY UD 04/15/25 [History Confirmed 04/15/25] omega 7-cwk-sbj-fish oil 900 mg-1,400 mg capsule,delayed release (Fish Oil) 2 cap PO DAILY 04/15/25 [History Confirmed 04/15/25] vitamins no.180-ferrous fumarate 27 mg-folic acid 1 mg tablet ( Plus Vitamin-Mineral) 2 tab PO DAILY 04/15/25 [History Confirmed 04/15/25] docusate sodium 100 mg capsule (Colace) 100 mg PO BID #20 caps 04/16/25 [Rx] labetalol 200 mg tablet 200 mg PO BID 30 days #60 tabs 04/17/25 [Rx] Intake Visit Data Collection New Patient or Established: Established Patient (seen at [facility] within 3 years) Reason for Visit:: OBC Seen by Clinical Staff ONLY (RN/MA): No Residential Property Consultant Required: No Do You Feel Safe at Home: Yes Authorities Contacted: N/A PCP or OBGYN visit in last 3 months: Yes Date of Last PCP or OBGYN visit: 03/04/25 Hx Now: Yes Are you currently on any form of Control: No Pain Present Currently: No Pain Scale Used: Najera-Saleem/Numerical Pain scale:: 0 Smoking Status Smoking Status: Current some day smoker Cessation Counseling Provided: MASSIEL was advised that quitting smoking is the single most important factor to protect the health of themselves and their family. Discussed the benefits of quitting smoking with patient. Encouraged patient to quit smoking and provided Cessation assistance materials and resources. Tobacco Use: Cigarette Years smoked: 15 Are you interested in Quitting?: Yes Would you like additional Smoking Cessation Counseling?: Yes Immunizations Flu Vaccine in the Last 12 Months: No Flu Vaccine Exclusion Criteria: No Exclusion Criteria Questionnaires Covid-19 Vaccine Questionnaire Has patient been vacinated for Covid-19 Have you been vacinated for Covid-19: No PHQ-9 PHQ-2 Over the last 2 weeks, how often have you been bothered by any of the following problems? 1. Little interest or pleasure in doing things: not at all 2. Feeling down, depressed, or hopeless: not at all Total score: 0 PHQ-9 3. Trouble falling or staying asleep, or sleeping too much: Not at all 4. Feeling tired or having little energy: Not at all 5. Poor appetite or overeating: Not at all 6. Feeling bad about yourself - or that you are a failure or have let yourself or your family down: Not at all 7. Trouble concentrating on things, such as reading the newspaper or watching television: Not at all 8. Moving or speaking so slowly that other people could have noticed? - Or the opposite - being so fidgety or restless that you have been moving around a lot more than usual: not at all 9. Thoughts that you would be better off or of hurting yourself in some way: Not at all Total score: 0 If you checked off any problems, how difficult have these problems made it for you to do your work, take care of things at home, or get along with other people?: not difficult at all Source: Developed by Drs. Terry Gomez, Daria Russell, Tylor Mendoza and colleagues, with an educational maryam from [email or web address]. 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 Patient has poor dates. History of irregular menses. She thinks her last period might have been July 03, 2024. Patient has a history of anxiety and depression. And she plans to schedule an appointment with her behavioral health counselor. She has stopped taking her behavioral health meds. Patient does not remember what she has been taking. She takes Metropol all for high blood pressure. Patient also has chronic neck pain and she has been taking Rewey for that but she states that since she had a positive test she stopped taking her. Currently she smokes an occasional cigarette through the week. And she is smoking marijuana. She denies any SAB complaints. Reports tiredness and breast tenderness. She is taking vitamins. OB panel was ordered. I ordered 1 hour GTT, hemoglobin A1c.hcg. CBC with differential and CHEM panel. Was ordered. 24-hour protein also was ordered. And ordered ultrasound for dates and viability. SAB precautions. Patient to start labetalol 200 twice daily gave her 60 with 5 refills. And patient will also schedule an earlier appointment with Dr. Escobar to follow-up on her chronic health issues. Return in 4 weeks OB check 09/23/24 -?-?-?-?-?-?-?-?-?-?-?-?- 9w 3d 95.481 kg 116/73 absent 8 patient stopped taking norco and metropol for hypertention. advised to P/U and start Labetolol. I reviewed current medication with patient. she will continue PNV daily. start Labetolol 200 bis as directed, OK to continue with Ambien q hs for sleep. and continue Lamotrigine for PTSD and Bipolar. patient is also taking zofran as needed for nausea and pepcid for acid reflux. I discussed comfort measure for increased acid and N/V. we discussed SAB precaution. discussed dates, sono pending due to insurance problem. labs discussed. keep appointment with PCP/Dr Tirado in 2 week. OB check in 4 week for NIPT 10/14/24 -?-?-?-?-?-?-?-?-?-?-?-?- 12w 3d 87.09 kg 156/118 absent unknown 12 156 absent Patient discharge fro hospital. inpatient x 5 days for hyperemesis, DC home on Reglan 10mg daily. zofran and phenergan 25 mg supp tid. unable to keep down small bits of food and fluid. vomits constantly all day. she has not started phenergan. poor compliance with labetolol . consult with OB regarding BP. patient denies PIH complaints, no sab complaints NIPT and alison er screen. schedule MFM referral, start procardia 30mf XL immediately and RTC with OB 10/16/24 for BP check. review comfort measure for N/V, sab precaution NIPT and carrier screen. esther peña MFM referral, start procardia 30mf XL immediately and RTC with OB 10/16/24 for BP check. review comfort measure for N/V, sab precaution, NIPT, carrier screen 10/16/24 -?-?-?-?-?-?-?-?-?-?-?-?- 12w 5d 88.167 kg 124/82 Disregard note in Hx notes box (charted on wrong pt), correct note is here: 32yo @12w5d, severe hyperemesis (rec ent 5-day admission), low K+, chronic HTN on labetalol/Procardia, bipolar disorder on lamotrigine, insomnia. Plan: continue meds (Phenergan, Zofran, Reglan, Protonix, prednisone), refill prescriptions, labs for genetic testing, welfare note, check FHR by sono when room available. 10/27/24 -?-?-?-?-?-?-?-?-?-?-?-?- 14w 2d 93.213 kg 108/72 absent unknown 14 156 absent doing alittle better. compliant with labetolol 100 bid and nifedipine 30mg XL daily, patient continue on omeprizole and pepcid for indigestion, taking phenergan 25 mg po and zofran for nausea. eating has improved and vomiting less, denies sab complaints, MFM appointment pending continue cur rent plan of management, nifedipine 30 XL daily and labeolol BID, comfort measure for N/V, sab precaution, patient will see OB in november. RTC 4 week 11/19/24 -?-?-?-?-?-?-?-?-?-?-?-?- 17w 4d 96.388 kg 127/87 absent unknown 145 absent Patient reports nausea and vomiting. Patient denies cramping and abdominal pain. Patient reports headache. Denies VC, and epigastric pain. - Continue routine care - Follow up in 4 weeks - Complete referral process for level 2 ultrasound at [facility] - Perform blood work today (specific julee ts not mentioned) - Continue Zofran as needed for nausea a nd vomiting - Advised patient to carry Zofran with h er at all times - Reassured patient that symptoms typica lly improve as progresses - Prescribe nicotine patches as a safer alternative to smoking during - Educate patient on risks of smoking du ring and benefits of cessation - Prescribe Wellbutrin for anxiety and t o aid in smoking cessation - Informed patient that Wellbutrin is safe in and can help with anxiety without causing drowsiness 12/04/24 -?-?-?-?-?-?-?-?-?-?-?-?- 19w 5d 97.125 kg 108/70 absent unknown 19 156 absent Reports slight movement. Denies leaking, bleeding, contractions. Patient reports that she has had periods of feeling suicidal. This is not a new complaint for her she says patient sees and has virtual appointments with behavioral health monthly. Patient just spoke with behavioral health counselor a week ago and she is aware of her thoughts towards suicide. Patient reports she has an appointment with [facility] in a week. She is taking prenatals. She has concerns because she has limited family support both from the father of the baby and his family and her family. Right now she is safe she lives with her cousin and that makes her happy. Continue nifedip ine 30 XL and labetalol 100 twice daily as directed. Patient will continue Pepcid for indigestion. Patient is taking Lamictal lamotrigine for PTSD and she is to continue taking that. Continue comfort measures for nausea. Patient has a follow-up appointment with behavioral health in a month. But I advised patient to do a walk-in today at [facility] for behavioral health. aFP today. Keep appointment with maternal- medicine for 12 December. And patient has a follow-up with Dr. Ricks for OB check in a week and to follow-up on blood pressures. Increase fluids. Discussed labor precautions. 12/16/24 -?-?-?-?-?-?-?-?-?-?-?-?- 21w 3d 97.692 kg 138/82 absent unknown 21 140 absent - Patient reports severe stress due to partner's infidelity. - Medication regimen includes: - Labetalol for chronic hypertension - Lamotrigine for seizure disorder - Wellbutrin (started at last appointm ent) - Reglan - Nicotine patches (resumed smoking, n ow using patches) - Procardia - Protonix - Social history: - Mother is partially paralyzed and re siding in a local facility - Recent healthcare interactions: - Ultrasound performed with Maternal-F etal Medicine on 12/12/2024 - Visited [facility] for heart evaluation Plan - Administer antibiotics for urinary tra ct infection, 5-day course - Order echocardiogram to assess cardiac function in relation to hypertension - Refer to cardiology for consultation - Continue current medications: labetalo l, lamotrigine, Reglan, nicotine patches, Procardia, Protonix, Wellbutrin - Start aspirin 81mg daily for preeclamp patricio prevention - Obtain lab work as ordered - Follow up in one month - Schedule third trimester screening and internal testing - Plan for elective delivery at 38 weeks 01/01/25 -?-?-?-?-?-?-?-?--?-?-?-?- 23w 5d 100.301 kg 109/71 absent unknown 23 135 active Feeling better today. Denies labor symptoms. Patient is here to rule out STDs. She reports that she thinks her boyfriend is cheating. Positive movement. Denies any bleeding denies cramping denies leaking fluids. Urine: protein-,NIT- Continue nifedipine 30 XL and labetalol. Patient to get third trimester labs and PIH labs. Discussed labor precautions. Discussed safe sex. New swab today. Patient will be vigilant about STDs. And keep appointment with OB on January 14. 01/14/25 -?-?-?-?-?-?-?-?-?-?-?-?- 25w 4d 98.997 kg 117/69 absent unknown 25 145 active 2, para 1 at 25 weeks and 4 days gestation with multiple comorbidities including chronic hypertension, recurrent UTIs, seizure disorder, bipolar disorder, hyperemesis, nicotine dependence, and obesity. Recent MFM ultrasound revealed short cervical length of 5.7, but labor was ruled out. Patient reports fatigue and dry skin, likely due to inadequate fluid intake. heart rate is 153 bpm, which is within normal range. One-hour glucose test results were elevated, necessitating a 3-hour glucose tolerance test. Awaiting possible cardiac ultrasound for the fetus. - Sche dule 3-hour glucose test due to high one-hour test results - Continue taking vitamins with folic acid; extra folic acid recommended due to seizure medications - Take vitamin D3 supplement (one pill d aily) - Increase fluid intake to at least 32 o unces of water daily - Follow up in 4 weeks - Attend next appointment at [facility] on February 23 - Call if glucose test results are abnor mal - Await possible cardiac ultrasound for the baby 02/11/25 -?-?-?-?-?-?-?-?-?-?-?-?- 29w 4d 100.754 kg 108/73 absent unknown 30 150 active - She has a history of short cervical length measuring 5.7 millimeters at 25 weeks gestation. - labor was ruled out at that time. - Patient has chronic hypertension with superimposed urinary tract infection. - Currently on labetalol and Procardia for blood pressure management. - Completed a 5-day course of antibiot ics for UTI after her last appointment. - She has a past medical history of bipo lar disorder and nicotine dependence. - Currently taking lamotrigine and bup ropion. - [facility]. - Patient had an abnormal 1-hour glucose tolerance test and a 3-hour glucose tolerance test was ordered. - She completed the 3-hour glucose tolerance test and results are pending. Plan - Order CBC at the emergency room - Obtain 3-hour glucose tolerance test r esults (if not completed or insufficient, repeat at next visit if needed) - Follow up in 2 weeks 03/04/25 -?-?-?-?-?-?-?-?-?-?-?-?- 32w 4d 100.414 kg 108/70 absent cephalic 32 14 5 active - She reports recent hospitalizations for persistent vomiting and throwing up. - Patient experiences daily vomiting, oc curring every single day as soon as she wakes up. - Reports this is the longest period w ithout vomiting in recent time (4-5 days), though frequency has decreased rather than completely resolved. - Current medications for nausea include Zofran, oral promethazine (which she does not take), suppositories (which she has not used), and B6 taken daily. - She has both pill form and sublingua l Zofran but cannot locate the jensen blingual form. - The constant vomiting and acid reflux has caused yellowing of her teeth, which is causing her distress as her teeth have always been white. - Baby movement is present but currently quiet, described as taking a nap with occasional movement. - Patient mentions needing to see a spec ialist for echocardiogram but is unclear about the referral location. - Continue Zofran and B6 for nausea management - Prescribe sublingual Zofran (ondansetr on) - Recommend using promethazine supposito adri for nausea control - Order A1c, CBC, and CMP laboratory julee ts - Administer Tdap vaccination - Coordinate referral for echocard iogram - Follow up in 2 weeks 03/19/25 -?-?-?-?-?-?-?-?-?-?-?-?- 34w 5d 102.058 kg 124/79 absent cephalic 36 15 5 active - She reports persistent nausea and vomiting for the past 3 days. - Attributes symptoms to overheating a nd lack of sleep - Has been unable to sleep for 3 conse cutive days - Was prescribed medication for sleep but reluctant to take it frequently - Vomiting has affected her ability to keep food down, though baby appears to be gaining weight appropriately - She experiences severe itching through out her body. - Describes itching as really bad an d so extreme - Has caused visible damage to her leg s from scratching - Takes showers multiple times daily f or relief - Uses Benadryl occasionally when itch ing becomes severe - She reports temperature regulation iss ues with alternating hot and cold sensations. - Patient has been monitoring her blood sugar levels. - Reports highest reading was 135 mg/d L after eating candy - Attempting to maintain good glycemic control - She denies elevated blood pressure ayo dings at home. - Current medications include Becix, fol ic acid, linolenol, and probiotics, which she tolerates well. - She has an upcoming ultrasound appoint ment scheduled for March 24. - Patient expresses feeling nauseous dur ing the current visit and notes the room feels stuffy. - Continue curre nt vitamins (Becix, folic acid, linolenol, and probiotics) - Add fish oil minerals supplement for f etal brain development - Ultrasound scheduled for March 24 - Goal delivery at 38 weeks via inductio n (not ) - Follow up in 2 weeks - Patient to call regarding ultrasound a ppointment confirmation - Consider sleep medication as needed (s afe [facility]) - Benadryl as needed for itching IVONNE Calculator Estimated Delivery Date Method Current WG Current Estimate 04/25/25 Ultrasound #1 41w 5d Other Estimates 04/09/25 LMP (Uncertain) 44w 0d 04/29/25 Ultrasound #2 41w 1d Specific Issue/Plans - , second trimester - Chronic hypertension - Recurrent urinary tract infections - Seizure disorder - Bipolar disorder - Hyperemesis gravidarum - Nicotine dependence - Obesity - Short cervical length - Abnormal glucose tolerance test Notes Visit Date: 12/16/24 Last Updated by: Brian Friedman MD Problem List - , 21 weeks 3 days - Chronic hypertension - Urinary tract infection - Seizure disorder - Bipolar disorder - Hyperemesis gravidarum - Nicotine dependence - Obesity - Marijuana use Visit Date: 11/19/24 Last Updated by: Brian Friedman MD Risk and Safety Assessment - Current Risk: - Patient reports smoking cigarettes (2-3 per day from November 08 to November 15) - History of marijuana use - Patient experiencing significant emotional distress (crying or angry all the time ) - Patient reports anxiety and racing heart - Protective Factors: - Patient is engaged in care - Patient is willing to consider medication changes for anxiety and smoking cessation - Safety Factors: - Patient denies concerns about personal safety when asked - Patient states regarding partner: I don't think he cares enough to harm me Visit Date: 10/27/24 Last Updated by: Chika Jacobo CNM 29 yo . ivonne: 04/25/25. O+,abs-, rpr;;nr, rub IM, hiv-,HC-, HBSAG-, gc/ct-, A1: 5.7 Visit Date: 10/14/24 Last Updated by: Chika Jacobo CNM 6/3: start procardia 30mg XL. continue Labetolol 200 bid Visit Date: 09/23/24 Last Updated by: Chika Jacobo CNM 29 yo iup 8 week poor dates. HX of: PTSD, Anxiety. BiPolar and hypertention. . LMP 07/03/24. EDC 04/09/25. O+,abs-,rpr;;nr, rub NI, hbsag-,hiv-,HC-, GC/CT-, early 1 hr GTT was 93 A1c: 5.7 Office Procedures OBC Clinic LOC & Office Proc's Nursing/Assessment Patient Status: Established Patient OB Clinic Nursing Assessment: Medication Reconciliation, Update PMH in EMR and Vital Signs OB Clinic Coordination of Care: Consent,records obtained, informed consent, Education Simp Pt/Fam, Lab and Imaging orders, Results/Orders obtained and Staff clarify orders Special Needs: Heart tones Established Patient Charge Established Patient Point Assignment: 110 Established Patient Point Charge: EP Level 3 (80-115) Assessment & Plan Diagnosis / Problem List (1) Supervision of high risk , unspecified, third trimester: Status: Acute Plan Problem List - Hyperemesis gravidarum - Insomnia - Pruritus in Assessment Patient presents with severe nausea and vomiting for 3 days associated with sleep deprivation, likely related to hormones. She reports significant pruritus affecting her legs, possibly due to -induced hepatic stasis. Patient has been experiencing temperature fluctuations (hot and cold episodes) consistent with hormonal changes. Blood pressure remains normal, and recent glucose level of 135 mg/dL after candy consumption is acceptable. Laboratory results are within normal limits. heart rate is normal at 143 bpm, and baby appears to be growing appropriately despite maternal weight loss from vomiting. Plan - Continue current vitamins (Becix, folic acid, linolenol, and probiotics) - Add fish oil minerals supplement for brain development - Ultrasound scheduled for March 24 - Goal delivery at 38 weeks via induction (not ) - Follow up in 2 weeks - Patient to call regarding ultrasound appointment confirmation - Consider sleep medication as needed (safe in , [facility]) - Benadryl as needed for itching 1. Progress Reviewed gestational age, growth, and heart rate (143 bpm, normal). Patient reports baby is gaining weight appropriately. Planned frequent visits (every 2 weeks until 36 weeks, then weekly). Next visit scheduled in 2 weeks with ultrasound on the . 2. Instructed patient to monitor movements and report decreases immediately. 3. Testing Patient's labs look good. Ultrasound scheduled for the . Blood pressure monitoring shows normal readings. Blood sugar monitoring shows 135 after eating candy, which is acceptable. 4. Preeclampsia Precaution Patient reports blood pressure has not been high and current readings are good. Educated on preeclampsia signs: severe headache, vision changes, right upper quadrant pain, sudden swelling. Advised urgent reporting of symptoms and discussed blood pressure monitoring if high risk. 5. Labor Precautions Reviewed labor signs: regular contractions, pelvic pressure, back pain, bleeding, or fluid leakage. Instructed to seek immediate care for these symptoms. Goal is 38 weeks gestation with planned induction, not . 6. Lifestyle and Delivery Preparation Patient taking vitamins (Becix, folic acid, linolenol, probiotics) and fish oil for brain development. Reinforced vitamins, nutrition, and safe activity. Discussed delivery plan - induction at 38 weeks rather than C- section. Patient preparing for baby shower and taking photos. 7. Psychosocial Support Patient experiencing significant symptoms including severe nausea/vomiting for 3 days, sleep difficulties, severe itching, and hormonal fluctuations (hot/cold episodes). Discussed medication options for nausea that are safe in . Assessed emotional well-being and offered support for managing discomforts.
== END 2025-03-19 13:57 | disposition home or self-care (01) ==
LOC: HODSOBC 13:14
PROVIDERS: Supervising Provider Obstetrics & Gynecology; Visit Provider Obstetrics & Gynecology
DX: O09.893 Supervision of other high risk pregnancies, third trimester (principal); O21.0 Mild hyperemesis gravidarum; O26.893 Other specified pregnancy related conditions, third trimester; L29.9 Pruritus, unspecified; O99.333 Smoking (tobacco) complicating pregnancy, third trimester; O99.353 Diseases of the nervous system complicating pregnancy, third trimester; G47.00 Insomnia, unspecified; O10.913 Unspecified pre-existing hypertension complicating pregnancy, third trimester; O99.343 Other mental disorders complicating pregnancy, third trimester; F31.9 Bipolar disorder, unspecified; O99.213 Obesity complicating pregnancy, third trimester; F17.210 Nicotine dependence, cigarettes, uncomplicated; Z3A.34 34 weeks gestation of pregnancy; Z71.6 Tobacco abuse counseling; Z88.6 Allergy status to analgesic agent; Z88.1 Allergy status to other antibiotic agents; Z88.0 Allergy status to penicillin
CPT/HCPCS: 99213; G0463

== ENCOUNTER 2025-04-02 14:22 | Outpatient (AMB) | payer MEDICAID, SELFPAY ==
[2025-04-02 14:42] VITALS: BP 124/84; PULSE 95; RESP 18; TEMP 36.3; O2SAT 98; BMI 43.3
--- NOTE | 2025-04-02 14:42 | OBCLNT_ITS ---
Vital Signs 04/02/25 14:42 Height 1.55 m Height Method Stated Weight 104.043 kg Weight Measurement Method Standing Scale BMI 43.3 BP 124/84 Blood Pressure Source Automatic Cuff Blood Pressure Location Left Upper Arm Position Sitting Respiration 18 Pulse 95 Pulse Source Monitor Temp 97.3 F Temp Source Oral Pulse Oximetry (%) 98 Oxygen Delivery Method Room Air Allergies/Home Meds Allergies & Medications Allergies clavulanic acid (From Augmentin) Allergy (Severe, Verified 04/15/25 20:16) burning sensation amoxicillin (From Augmentin) Adverse Reaction (Severe, Verified 04/15/25 20:16) burning sensation ibuprofen Adverse Reaction (Severe, Verified 04/15/25 20:16) DUE TO KIDNEYS Medication Reconciliation bupropion HCl 150 mg 24 hr tablet, extended release (Wellbutrin XL) 150 mg PO QAM 30 days #30 tabs 03/04/25 [Rx Confirmed 04/15/25] hydroxyzine HCl 10 mg tablet 10 mg PO TID PRN anxiety #10 tabs 03/04/25 [Rx Confirmed 04/15/25] pantoprazole 40 mg tablet,delayed release (Protonix) 40 mg PO QDAY 90 days #90 tabs 03/04/25 [Rx Confirmed 04/15/25] Lactobacillus 40-Bifidobact 3-S.thermophilus 100 billion cell capsule (Probiotic) 2 cap PO DAILY 04/15/25 [History Confirmed 04/15/25] cetirizine 10 mg tablet (All Day Allergy (cetirizine)) 10 mg PO QDAY PRN allergy symptoms 04/15/25 [History Confirmed 04/15/25] cholecalciferol (vitamin D3) 50 mcg (2,000 unit) capsule 2,000 unit PO QDAY 04/15/25 [History Confirmed 04/15/25] lamotrigine 100 mg tablet 100 mg PO DAILY UD 04/15/25 [History Confirmed 04/15/25] omega 2-wwy-izs-fish oil 900 mg-1,400 mg capsule,delayed release (Fish Oil) 2 cap PO DAILY 04/15/25 [History Confirmed 04/15/25] vitamins no.180-ferrous fumarate 27 mg-folic acid 1 mg tablet ( Plus Vitamin-Mineral) 2 tab PO DAILY 04/15/25 [History Confirmed 04/15/25] docusate sodium 100 mg capsule (Colace) 100 mg PO BID #20 caps 04/16/25 [Rx] labetalol 200 mg tablet 200 mg PO BID 30 days #60 tabs 04/17/25 [Rx] Immunizations Immunizations Flu Vaccine in the Last 12 Months: No Flu Vaccine Exclusion Criteria: Refused by Patient Care OB Visit Log OB Flowsheet Initial Weight: Not Recorded Date -?-?-?-?-?-?-?-?-?-?-?-?- EGA Weight BP Alb Glu CTX Pres Fundal ht FHR Mov Dilation Station Effacement Hx Notes Visit Note 09/02/24 -?-?-?-?-?-?-?-?-?-?-?-?- 6w 3d 94.461 kg 127/70 absent 29-year-old 2 para 0 for first OB visit. Patient has poor dates. History of irregular menses. She thinks her last period might have been July 03, 2024. Patient has a history of anxiety and depression. And she plans to schedule an appointment with her behavioral health counselor. She has stopped taking her behavioral health meds. Patient does not remember what she has been taking. She takes [place] all for high blood pressure. Patient also has chronic neck pain and she has been taking [place] for that but she states that since she had a positive test she stopped taking her. Currently she smokes an occasional cigarette through the week. And she is smoking marijuana. She denies any SAB complaints. Reports tiredness and breast tenderness. She is taking vitamins. OB panel was ordered. I ordered 1 hour GTT, hemoglobin A1c.hcg. CBC with differential and CHEM panel. Was ordered. 24-hour protein also was ordered. And ordered ultrasound for dates and viability. SAB precautions. Patient to start labetalol 200 twice daily gave her 60 with 5 refills. And patient will also schedule an earlier appointment with Dr. Escobar to follow-up on her chronic health issues. Return in 4 weeks OB check 09/23/24 -?-?-?-?-?-?-?-?-?-?-?-?- 9w 3d 95.481 kg 116/73 absent 8 patient stopped taking norco and metropol for hypertention. advised to P/U and start Labetolol. I reviewed current medication with patient. she will continue PNV daily. start Labetolol 200 bis as directed, OK to continue with Ambien q hs for sleep. and continue Lamotrigine for PTSD and Bipolar. patient is also taking zofran as needed for nausea and pepcid for acid reflux. I discussed comfort measure for increased acid and N/V. we discussed SAB precaution. discussed dates, sono pending due to insurance problem. labs discussed. keep appointment with PCP/Dr Tirado in 2 week. OB check in 4 week for NIPT 10/14/24 -?-?-?-?-?-?-?-?-?-?-?-?- 12w 3d 87.09 kg 156/118 absent unknown 12 156 absent Patient discharge fro hospital. inpatient x 5 days for hyperemesis, DC home on Reglan 10mg daily. zofran and phenergan 25 mg supp tid. unable to keep down small bits of food and fluid. vomits constantly all day. she has not started phenergan. poor compliance with labetolol . consult with OB regarding BP. patient denies PIH complaints, no sab complaints NIPT and alison er screen. schedule MFM referral, start procardia 30mf XL immediately and RTC with OB 10/16/24 for BP check. review comfort measure for N/V, sab precaution NIPT and carrier screen. esther mariajosele MFM referral, start procardia 30mf XL immediately and RTC with OB 10/16/24 for BP check. review comfort measure for N/V, sab precaution, NIPT, carrier screen 10/16/24 -?-?-?-?-?-?-?-?-?-?-?-?- 12w 5d 88.167 kg 124/82 Disregard note in Hx notes box (charted on wrong pt), correct note is here: 32yo @12w5d, severe hyperemesis (rec ent 5-day admission), low K+, chronic HTN on labetalol/Procardia, bipolar disorder on lamotrigine, insomnia. Plan: continue meds (Phenergan, Zofran, Reglan, Protonix, prednisone), refill prescriptions, labs for genetic testing, welfare note, check FHR by josé miguel when room available. 10/27/24 -?-?-?-?-?-?-?-?-?-?-?-?- 14w 2d 93.213 kg 108/72 absent unknown 14 156 absent doing alittle better. compliant with labetolol 100 bid and nifedipine 30mg XL daily, patient continue on omeprizole and pepcid for indigestion, taking phenergan 25 mg po and zofran for nausea. eating has improved and vomiting less, denies sab complaints, [facility] appointment pending continue cur rent plan of management, nifedipine 30 XL daily and labeolol BID, comfort measure for N/V, sab precaution, patient will see OB in november. RTC 4 week 11/19/24 -?-?-?-?-?-?-?-?-?-?-?-?- 17w 4d 96.388 kg 127/87 absent unknown 145 absent Patient reports nausea and vomiting. Patient denies cramping and abdominal pain. Patient reports headache. Denies VC, and epigastric pain. - Continue routine care - Follow up in 4 weeks - Complete referral process for level 2 ultrasound at [facility] - Perform blood work today (specific julee ts not mentioned) - Continue Zofran as needed for nausea a nd vomiting - Advised patient to carry Zofran with h er at all times - Reassured patient that symptoms typica lly improve as progresses - Prescribe nicotine patches as a safer alternative to smoking during - Educate patient on risks of smoking du ring and benefits of cessation - Prescribe Wellbutrin for anxiety and t o aid in smoking cessation - Informed patient that Wellbutrin is safe in and can help with anxiety without causing drowsiness 12/04/24 -?-?-?-?-?-?-?-?-?-?-?-?- 19w 5d 97.125 kg 108/70 absent unknown 19 156 absent Reports slight movement. Denies leaking, bleeding, contractions. Patient reports that she has had periods of feeling suicidal. This is not a new complaint for her she says patient sees and has virtual appointments with behavioral health monthly. Patient just spoke with behavioral health counselor a week ago and she is aware of her thoughts towards suicide. Patient reports she has an appointment with [facility] in a week. She is taking prenatals. She has concerns because she has limited family support both from the father of the baby and his family and her family. Right now she is safe she lives with her cousin and that makes her happy. Continue nifedip ine 30 XL and labetalol 100 twice daily as directed. Patient will continue Pepcid for indigestion. Patient is taking Lamictal lamotrigine for PTSD and she is to continue taking that. Continue comfort measures for nausea. Patient has a follow-up appointment with behavioral health in a month. But I advised patient to do a walk-in today at [facility] for behavioral health. aFP today. Keep appointment with maternal- medicine for 12 December. And patient has a follow-up with Dr. Ricks for OB check in a week and to follow-up on blood pressures. Increase fluids. Discussed labor precautions. 12/16/24 -?-?-?-?-?-?-?-?-?-?-?-?- 21w 3d 97.692 kg 138/82 absent unknown 21 140 absent - Patient reports severe stress due to partner's infidelity. - Medication regimen includes: - Labetalol for chronic hypertension - Lamotrigine for seizure disorder - Wellbutrin (started at last appointm ent) - Reglan - Nicotine patches (resumed smoking, n ow using patches) - Procardia - Protonix - Social history: - Mother is partially paralyzed and re siding in a local facility - Recent healthcare interactions: - Ultrasound performed with [facility]aternal-F etal Medicine on 12/12/2024 - Visited [facility] for heart evaluation Plan - Administer antibiotics for urinary tra ct infection, 5-day course - Order echocardiogram to assess cardiac function in relation to hypertension - Refer to cardiology for consultation - Continue current medications: labetalo l, lamotrigine, Reglan, nicotine patches, Procardia, Protonix, Wellbutrin - Start aspirin 81mg daily for preeclamp patricio prevention - Obtain lab work as ordered - Follow up in one month - Schedule third trimester screening and internal testing - Plan for elective delivery at 38 weeks 01/01/25 -?-?-?-?-?-?-?-?-?-?-?-?- 23w 5d 100.301 kg 109/71 absent unknown 23 135 active Feeling better today. Denies labor symptoms. Patient is here to rule out STDs. She reports that she thinks her boyfriend is cheating. Positive movement. Denies any bleeding denies cramping denies leaking fluids. Urine: protein-,NIT- Continue nifedipine 30 XL and labetalol. Patient to get third trimester labs and PIH labs. Discussed labor precautions. Discussed safe sex. New swab today. Patient will be vigilant about STDs. And keep appointment with OB on January 14. 01/14/25 -?-?-?-?-?-?-?-?-?-?-?-?- 25w 4d 98.997 kg 117/69 absent unknown 25 145 active 2, para 1 at 25 weeks and 4 days gestation with multiple comorbidities including chronic hypertension, recurrent UTIs, seizure disorder, bipolar disorder, hyperemesis, nicotine dependence, and obesity. Recent MFM ultrasound revealed short cervical length of 5.7, but labor was ruled out. Patient reports fatigue and dry skin, likely due to inadequate fluid intake. heart rate is 153 bpm, which is within normal range. One-hour glucose test results were elevated, necessitating a 3-hour glucose tolerance test. Awaiting possible cardiac ultrasound for the fetus. - Sche dule 3-hour glucose test due to high one-hour test results - Continue taking vitamins with folic acid; extra folic acid recommended due to seizure medications - Take vitamin D3 supplement (one pill d aily) - Increase fluid intake to at least 32 o unces of water daily - Follow up in 4 weeks - Attend next appointment at [facility] on February 23 - Call if glucose test results are abnor mal - Await possible cardiac ultrasound for the baby 02/11/25 -?-?-?-?-?-?-?-?-?-?-?-?- 29w 4d 100.754 kg 108/73 absent unknown 30 150 active - She has a history of short cervical length measuring 5.7 millimeters at 25 weeks gestation. - labor was ruled out at that time. - Patient has chronic hypertension with superimposed urinary tract infection. - Currently on labetalol and Procardia for blood pressure management. - Completed a 5-day course of antibiot ics for UTI after her last appointment. - She has a past medical history of bipo lar disorder and nicotine dependence. - Currently taking lamotrigine and bup ropion. - [facility]. - Patient had an abnormal 1-hour glucose tolerance test and a 3-hour glucose tolerance test was ordered. - She completed the 3-hour glucose tolerance test and results are pending. Plan - Order CBC at the emergency room - Obtain 3-hour glucose tolerance test r esults (if not completed or insufficient, repeat at next visit if needed) - Follow up in 2 weeks 03/04/25 -?-?-?-?-?-?-?-?-?-?-?-?- 32w 4d 100.414 kg 108/70 absent cephalic 32 14 5 active - She reports recent hospitalizations for persistent vomiting and throwing up. - Patient experiences daily vomiting, oc curring every single day as soon as she wakes up. - Reports this is the longest period w ithout vomiting in recent time (4-5 days), though frequency has decreased rather than completely resolved. - Current medications for nausea include Zofran, oral promethazine (which she does not take), suppositories (which she has not used), and B6 taken daily. - She has both pill form and sublingua l Zofran but cannot locate the sublingual form. - The constant vomiting and acid reflux has caused yellowing of her teeth, which is causing her distress as her teeth have always been white. - Baby movement is present but currently quiet, described as taking a nap with occasional movement. - Patient mentions needing to see a spec ialist for echocardiogram but is unclear about the referral location. - Continue Zofran and B6 for nausea management - Prescribe sublingual Zofran (ondansetr on) - Recommend using promethazine supposito adri for nausea control - Order A1c, CBC, and CMP laboratory julee ts - Administer Tdap vaccination - Coordinate referral for echocard iogram - Follow up in 2 weeks 03/19/25 -?-?-?-?-?-?-?-?-?-?-?-?- 34w 5d 102.058 kg 124/79 absent cephalic 36 15 5 active - She reports persistent nausea and vomiting for the past 3 days. - Attributes symptoms to overheating a nd lack of sleep - Has been unable to sleep for 3 conse cutive days - Was prescribed medication for sleep but reluctant to take it frequently - Vomiting has affected her ability to keep food down, though baby appears to be gaining weight appropriately - She experiences severe itching through out her body. - Describes itching as really bad an d so extreme - Has caused visible damage to her leg s from scratching - Takes showers multiple times daily f or relief - Uses Benadryl occasionally when itch ing becomes severe - She reports temperature regulation iss ues with alternating hot and cold sensations. - Patient has been monitoring her blood sugar levels. - Reports highest reading was 135 mg/d L after eating candy - Attempting to maintain good glycemic control - She denies elevated blood pressure ayo dings at home. - Current medications include Becix, fol ic acid, linolenol, and probiotics, which she tolerates well. - She has an upcoming ultrasound appoint ment scheduled for March 24. - Patient expresses feeling nauseous dur ing the current visit and notes the room feels stuffy. - Continue curre nt vitamins (Becix, folic acid, linolenol, and probiotics) - Add fish oil minerals supplement for f etal brain development - Ultrasound scheduled for March 24 - Goal delivery at 38 weeks via inductio n (not ) - Follow up in 2 weeks - Patient to call regarding ultrasound a ppointment confirmation - Consider sleep medication as needed ([facility] afe [facility] , [facility]) - Benadryl as needed for itching 04/02/25 -?-?-?-?-?-?-?-?-?-?-?-?- 36w 5d 104.043 kg 124/84 absent cephalic 38 13 5 active - The baby is measuring small, particularly the head circumference. - Patient reports no specific symptoms o r complaints during this visit. - She is currently attending twice-weekl y monitoring at the hospital. - Patient has an upcoming echocardiogram scheduled for the in [place]. - She denies cervical dilation at this time. - Induction of labor scheduled for April 14 (Sunday after ) at 38 weeks gestation - Patient to call hospital at 8 AM on of induction for room assignment and timing - Group B Strep culture swab to be perfo rmed - monitoring at hospital twice jammie smalls, next appointment April 07 - Echocardiogram scheduled in [place] on April 07 - Transfer Iron Operator consultation for evaluati on of head measurements - Two support persons allowed during del anya; one support person if section required IVONNE Calculator Estimated Delivery Date Method Current WG Current Estimate 04/25/25 Ultrasound #1 41w 5d Other Estimates 04/09/25 LMP (Uncertain) 44w 0d 04/29/25 Ultrasound #2 41w 1d Specific Issue/Plans - , second trimester - Chronic hypertension - Recurrent urinary tract infections - Seizure disorder - Bipolar disorder - Hyperemesis gravidarum - Nicotine dependence - Obesity - Short cervical length - Abnormal glucose tolerance test Notes Visit Date: 12/16/24 Last Updated by: Brian Friedman MD Problem List - , 21 weeks 3 days - Chronic hypertension - Urinary tract infection - Seizure disorder - Bipolar disorder - Hyperemesis gravidarum - Nicotine dependence - Obesity - Marijuana use Visit Date: 11/19/24 Last Updated by: Brian Friedman MD Risk and Safety Assessment - Current Risk: - Patient reports smoking cigarettes (2-3 per day from November 08 to November 15) - History of marijuana use - Patient experiencing significant emotional distress (crying or angry all the time ) - Patient reports anxiety and racing heart - Protective Factors: - Patient is engaged in care - Patient is willing to consider medication changes for anxiety and smoking cessation - Safety Factors: - Patient denies concerns about personal safety when asked - Patient states regarding partner: I don't think he cares enough to harm me Visit Date: 10/27/24 Last Updated by: Chika Jacobo CNM 29 yo . ivonne: 04/25/25. O+,abs-, rpr;;nr, rub IM, hiv-,HC-, HBSAG-, gc/ct-, A1: 5.7 Visit Date: 10/14/24 Last Updated by: Chika Jacobo CNM /: start procardia 30mg XL. continue Labetolol 200 bid Visit Date: 09/23/24 Last Updated by: Chika Jacobo CNM 29 yo iup 8 week poor dates. HX of: PTSD, Anxiety. BiPolar and hypertention. . LMP 07/03/24. EDC 04/09/25. O+,abs-,rpr;;nr, rub NI, hbsag-,hiv- ,HC-, GC/CT-, early 1 hr GTT was 93 A1c: 5.7 Office Procedures [facility] LOC & Office Proc's Nursing/Assessment Patient Status: Established Patient OB Clinic Nursing Assessment: Medication Reconciliation, Update PMH in EMR and Vital Signs OB Clinic Coordination of Care: Complex Care and Chronic Disease 1-5, Consent,records obtained, informed consent, Education Simp Pt/Fam, 1 Ins Authorization, Lab and Imaging orders, Results/Orders obtained and Staff clarify orders Special Needs: Heart tones Miscellaneous Interventions: Culture Specimen Collection Established Patient Charge Established Patient Point Assignment: 165 Established Patient Point Charge: EP Level 5 (160-above) Assessment & Plan Diagnosis / Problem List (1) Supervision of high risk , unspecified, third trimester: Status: Acute Plan Problem List - growth restriction - microcephaly Assessment Patient presents at 38 weeks gestation with growth restriction, specifically microcephaly, with the baby's head measuring small while the estimated weight is approximately 6 pounds 12 ounces. heart rate is normal at 135 beats per minute. Cervical examination reveals no dilation at this time. Group B Streptococcus culture swab is being performed as part of routine care. Plan - Induction of labor scheduled for April 14 (Sunday) at 38 weeks gestation - Patient to call hospital at 8 AM on day of induction for room assignment and timing - Group B Strep culture swab to be performed - monitoring at hospital twice weekly, next appointment April 07 - Echocardiogram scheduled in [place] on April 07 - Transfer Iron Operator consultation for evaluation of head measurements - Two support persons allowed during delivery; one support person if section required 1. Progress Reviewed gestational age at 38 weeks, growth with baby measuring small (mainly the head), estimated weight 6-12 pounds, and heart rate of 135 bpm which is normal. Planned induction at 38-39 weeks on April 14 (Sunday). Patient scheduled for twice weekly monitoring at hospital. 2. Instructed patient to monitor movements and report decreases immediately. 3. Testing Group B Strep culture swab performed. [facility] Ultrasound recommended delivery at 38-39 weeks. Echo scheduled for April 07 in [place]. Transfer Iron Operator will check head measurement postnatally. 4. Preeclampsia Precaution Educated on preeclampsia signs: severe headache, vision changes, right upper quadrant pain, sudden swelling. Advised urgent reporting of symptoms and discussed blood pressure monitoring if high risk. 5. Labor Precautions Reviewed labor signs: regular contractions, pelvic pressure, back pain, bleeding, or fluid leakage. Instructed to seek immediate care for these symptoms. 6. Lifestyle and Delivery Preparation Discussed induction plan for April 14 with instructions to call at 8 AM on induction day. Provided induction information paper with phone number. Discussed delivery room policies: two support persons allowed during vaginal delivery, one support person if section needed. section not anticipated. 7. Psychosocial Support Assessed emotional well-being and offered resources for mental health or parenting support.
== END 2025-04-02 15:33 | disposition home or self-care (01) ==
LOC: HODSOBC 14:22
PROVIDERS: Supervising Provider Obstetrics & Gynecology; Visit Provider Obstetrics & Gynecology
DX: O09.893 Supervision of other high risk pregnancies, third trimester (principal); O35.0 Maternal care for (suspected) central nervous system malformation in fetus; O36.5930 Maternal care for other known or suspected poor fetal growth, third trimester, not applicable or unspecified; Z3A.38 38 weeks gestation of pregnancy; Z36.85 Encounter for antenatal screening for Streptococcus B
CPT/HCPCS: 99215; G0463

== ENCOUNTER 2025-04-06 14:49 | Outpatient (RCR) | payer MEDICAID, SELFPAY ==
--- NOTE | 2025-03-30 15:52 | XR_ITS ---
Examination: Biophysical profile, ultrasound Date and time of exam: March 30, 2025, 1559 hours INDICATIONS: Diagnosis pre-existing hypertension Technique: Multiple transabdominal sonographic images of the pelvis abdomen obtained. Attention is directed to the breathing movement, gross body movement, amniotic fluid volume and tone. Findings: Amniotic fluid index 13.7 cm Total biophysical profile is 8 of 8. breathing movement is 2. Gross body movement is 2. tone is 2. Qualitative amniotic fluid volume is 2 Impression: Biophysical profile is 8 of 8.
[2025-03-30 16:55] VITALS: BP 114/59; PULSE 99; RESP 16; TEMP 36.7
--- NOTE | 2025-04-02 12:55 | XR_ITS ---
Examination: Biophysical profile, ultrasound Date and time of exam: April 02, 2025, 10:31 p.m. INDICATIONS: Pre-existing hypertension Technique: Multiple transabdominal sonographic images of the pelvis abdomen obtained. Attention is directed to the breathing movement, gross body movement, amniotic fluid volume and tone. Findings: Amniotic fluid index 10.4 cm Total biophysical profile is 8 of 8. breathing movement is 2. Gross body movement is 2. tone is 2. Qualitative amniotic fluid volume is 2 Impression: Biophysical profile is 8 of 8.
[2025-04-02 13:17] VITALS: BP 121/71; PULSE 95; RESP 16; TEMP 37.1
--- NOTE | 2025-04-06 14:57 | XR_ITS ---
Examination: Biophysical profile, ultrasound Date and time of exam: April 06, 2025, 1436 hours INDICATIONS: Diagnosis hypertension Technique: Multiple transabdominal sonographic images of the pelvis abdomen obtained. Attention is directed to the breathing movement, gross body movement, amniotic fluid volume and tone. Findings: Amniotic fluid index 10.6 cm Total biophysical profile is 8 of 8. breathing movement is 2. Gross body movement is 2. tone is 2. Qualitative amniotic fluid volume is 2 Impression: Biophysical profile is 8 of 8.
[2025-04-06 15:50] VITALS: BP 123/71; PULSE 100; RESP 16; TEMP 37.1
== END 2025-04-06 23:59 | disposition home or self-care (01) ==
LOC: S4S1 14:49
PROVIDERS: PCP Family Medicine; Referring Provider Obstetrics & Gynecology; Visit Provider Obstetrics & Gynecology
DX: O10.013 Pre-existing essential hypertension complicating pregnancy, third trimester (principal); O09.93 Supervision of high risk pregnancy, unspecified, third trimester; Z3A.37 37 weeks gestation of pregnancy
CPT/HCPCS: 59025; 76819

== ENCOUNTER 2025-04-15 19:10 | Inpatient (IN) | payer MEDICAID, SELFPAY ==
--- NOTE | 2025-04-14 17:54 | PC.NURSE ---
Patient was scheduled for NST/BPP yesterday due to GDM and CHTN, patient called the unit to cancel appointment due being out of town shopping in [place]. Patient was scheduled for IOL today, due to bed unavailability Dr. Siddiqui requested for her to come in for NST/BPP and BP checks. Patient was called in to unit and refused, states she is out of town and plans to call in tomorrow morning for bed availability. Labor precautions and kick counts discussed, instructed to come into triage with signs of active labor, leaking, bleeding, decreased FM or elevated BPs. Patient verbalized understanding.
--- NOTE | 2025-04-15 08:52 | PC.NURSE ---
PT CALLED ASKING FOR BED AVAILABILITY FOR IOL, INFORMED OF NO BEDS AVAILABLE AT THIS TIME, EDUCATED ON KICK COUNT AND LABOR PRECAUTIONS, WILL CALL PT ONCE A BED BECOMES AVAILABLE, PT VERBALIZED UNDERSTANDING
--- NOTE | 2025-04-15 12:54 | PC.NURSE ---
CALLED PT, ASKED PT TO COME IN FOR IOL, PT STATES IS SHOPPING IN [place] RIGHT NOW DUE TO SHOPPING FOR BABY SUPPLIES, ASKED PT TO CALL ONCE DONE SHOPPING
--- NOTE | 2025-04-15 16:51 | PC.NURSE ---
LATE ENTRY: PT CALLED ASKED FOR BED AVAILABILITY FOR IOL, INFORMED PT OF NO BEDS AT THIS TIME AND WILL CALL PT WHEN BED BECOMES AVAILABLE, PT VERBALIZED UNDERSTANDING THEN PT CALLED AGAIN ASKING FOR HER RECORDS TO BE FAXED TO [facility] DUE TO PT CALLED [facility] AND WOULD BE INDUCED THERE ONLY NEEDING FOR RECORDS TO BE FAXED, EDUCATED PT ON HAVING [facility] SEND A FAX WITH RELEASE OF RECORDS WITH PT SIGNATURE, PT STATES ALREADY SPOKE WITH [facility] AND WAS TOLD TO CALL US TO HAVE RECORDS FAXED, EDUCATED PT ON REASON FOR FORM TO BE FAXED CAN CALL OB CLINIC AND ASK THEM TO HAVE HER RECORDS FAXED HOSPITAL IS NOT ALLOWED TO WITHOUT RELEASE OF INFORMATION FORM, PT STATES ALREADY SPENT HER LAST AMOUNT OF MONEY OF GAS AND DOES NOT HAVE MORE MONEY OR TIME TO COME BACK TO [place] FOR HER INDUCTION, STATES DROVE TO [place] SINCE THAT IS WHERE SHE HAS FAMILY WHO WILL HELP HER HEAL AFTER SHE DELIVERS, RE-EDUCATED PT ON CALLING CLINIC TO ASK FOR RECORDS TO BE FAXED OR CAN WAIT FOR BED TO BECOME AVAILABLE FOR IOL, TRANSFERRED CALL TO OB CLINIC
--- NOTE | 2025-04-15 17:43 | PC.NURSE ---
PT ON PHONE, STATES DROVE BACK TO [place] DUE TO WAS NOT ABLE TO SPEND THE NIGHT IN [place] WITH FAMILY, ASKED PT TO COME IN BEFORE 1900 FOR IOL
[2025-04-15 19:25] VITALS: BMI 43.2
[2025-04-15 20:16] LABS: Collection Type, Urine Clean Catch
[2025-04-15 20:22] LABS: Basophils # (Auto) 0.0 Thou/mm3 (0.0-0.2); Basophils % (Auto) 0 % (0-2.5); Eosinophils # (Auto) 0.1 Thou/mm3 (0.0-0.5); Eosinophils % (Auto) 0 % (0-10); Hematocrit 31.0 % (36.0-46.0); Hemoglobin 10.0 g/dL (12.0-16.0); Immature Granulocytes Auto 0.10 Thou/mm3 (0.00-0.00); Lymphocytes # (Auto) 2.7 Thou/mm3 (1.0-4.8); Lymphocytes % (Auto) 18 % (10-50); Mean Corpuscular HGB Conc 32.3 g/dl (31.0-37.0); Mean Corpuscular Hemoglobin 22.6 pg (25.0-35.0); Mean Corpuscular Volume 70 fL (80-100); Monocytes # (Auto) 1.1 Thou/mm3 (0.0-0.8); Monocytes % (Auto) 7 % (0-12); Neutrophils # (Auto) 10.8 Thou/mm3 (1.8-7.7); Neutrophils % (Auto) 73 % (37-80); Nucleated Red Blood Cell # 0.00 Thou/mm3 (0.00-0.00); Nucleated Red Blood Cell % 0 /100 WBC (0); Platelet Count 314 Thou/mm3 (140-440); RDW Standard Deviation 35.8 fL (36.4-46.3); Red Blood Count 4.43 Miln/mm3 (4.00-5.20); White Blood Count 14.8 Thou/mm3 (3.6-11.0)
[2025-04-15] MEDS: RINGERS LACTATED 1000 ML 1,000 ML 125 ML IV (20:30)
[2025-04-15 20:32] LABS: Bacteria,Urine Rare; Bilirubin,Urine Negative (Negative); Blood,Urine Negative (Negative); Clarity,Urine Turbid (Clear/Hazy); Color,Urine Yellow (Lt Yel-Yel); Glucose, Urine 2+ (Negative); Ketones,Urine Negative (Negative); Leukocyte Esterase,Urine Positive (Negative); Nitrite,Urine Negative (Negative); PH,Urine 6.5 (5.0-7.0); Protein,Urine 1+ (Neg - Trace); RBC,Urine 3 /hpf (0-3); Specific Gravity,Urine 1.029 (1.001-1.035); Squamous Epithelial Cell,Urine 15 /hpf (0-5); Transitional Epi Cells,Urine < 1 /hpf (0-5); Urobilinogen,Urine 2.0 mg/dL (0.0-1.0); WBC,Urine 3 /hpf (0-5)
[2025-04-15 20:35] LABS: Amphetamine/Metham Scrn,Ur OB Negative (Negative); Benzoylecgonine Screen, Ur OB Negative (Negative); Creatinine,Random Urine 197 mg/dL (30-125); Opiate Screen,Urine OB Negative (Negative); Protein Total, Random Urine 36 mg/dL (1-14); THC Screen,Urine OB Positive (Negative)
[2025-04-15 20:36] LABS: THC U Confirm* See Sep Rpt
[2025-04-15 20:37] LABS: INR 0.9 (0.9-1.3); Partial Thromboplastin Time 23.6 Seconds (22.0-36.0); Prothrombin Time 10.0 Seconds (9.0-12.2)
[2025-04-15 20:38] LABS: Alanine Aminotransferase 18 U/L (10-49); Albumin, Serum 4.1 gm/dL (3.5-5.0); Albumin/Globulin Ratio 1.5 (1.2-2.2); Alkaline Phosphatase 208 U/L (46-116); Anion Gap 12 (7-16); Aspartate Amino Transferase 28 U/L (0-34); BUN/Creatinine Ratio 13 Ratio (12-20); Bilirubin,Total 0.5 mg/dL (0.3-1.2); Blood Urea Nitrogen 8 mg/dL (9-23); Calcium 9.2 mg/dL (8.3-10.6); Calcium (Corrected) 9.2 mg/dL (8.5-10.1); Carbon Dioxide 22.8 mMol/L (20.0-31.0); Chloride 105 mMol/L (98-107); Creatinine (Component) 0.6 mg/dL (0.6-1.3); Estimated Creatinine Clearance 153.3 mL/min (>60); Globulin 2.8 gm/dL (2.3-3.5); Glucose 109 mg/dL (74-106); Osmolality,Calculated 278 (275-295); Potassium 3.5 mMol/L (3.4-5.1); Sodium 140 mMol/L (136-145); Total Protein 6.9 gm/dL (5.7-8.2); Uric Acid 3.4 mg/dL (3.1-7.8); eGFR > 60 See Note
[2025-04-15 20:42] LABS: Fibrinogen 637 mg/dL (175-375)
[2025-04-15 20:53] VITALS: BP 154/86; PULSE 96
[2025-04-15 20:56] LABS: Syphilis Nonreactive (Nonreactive)
[2025-04-15] MEDS: PANTOPRAZOLE 40 MG TABLET PO (21:07)
[2025-04-15 21:08] VITALS: BP 146/83; PULSE 96
[2025-04-15] MEDS: LABETALOL 100 MG TABLET 200 MG PO (21:08)
[2025-04-15] MEDS: PRENATAL VITAMIN/FE FUM/FA TABLET 1 TAB PO (21:08)
[2025-04-15 21:09] VITALS: BP 146/83; PULSE 96
[2025-04-15] MEDS: FOLIC ACID 1 MG TABLET PO (21:10)
[2025-04-15] MEDS: PYRIDOXINE 50 MG TABLET 100 MG PO (21:10)
[2025-04-15 22:17] VITALS: BP 110/62; PULSE 99
[2025-04-15 22:36] VITALS: BP 114/55; PULSE 94
[2025-04-15] MEDS: ONDANSETRON INJ 2 MG/ML INJ 2 ML 4 MG IVP (22:46)
[2025-04-15 22:51] VITALS: BP 120/62; PULSE 92
[2025-04-16] VITALS (72 sets, daily range): BP systolic 106–172; BP diastolic 52–91; PULSE 63–105; RESP 16–18; TEMP 36.6–37.3; O2SAT 89–100
[2025-04-16] MEDS: ACETAMINOPHEN 325 MG TABLET 1000 MG PO (00:46)
[2025-04-16] MEDS: ONDANSETRON INJ 2 MG/ML INJ 2 ML 4 MG IVP (04:20)
--- NOTE | 2025-04-16 06:36 | PD.LDHP ---
Documentation for date of: 04/16/25 OB Labor/Induct. HPI History of Present Illness Chief complaint: scheduled IOL : 2 Para: 1 Term pregnancies: 1 pregnancies: 1 Living children: 1 History of Abortions: Spontaneous and Elective: 0 History of Vaginal deliveries: 1 History of sections: No History of : No Date of last menstrual period: 07/18/24 IVONNE: 04/25/25 Gestational Age (weeks): 38 Gestational Age (days): 5 Gestational age based on last menstrual period: 38 Indication for induction: medical complication History of present illness: Patient presents for scheduled induction of labor. Indication: CHTN, current BMI 43.2. No regular/painful ctx. No LOF. No vaginal bleeding. Normal movement. History of Present Dating criteria: LMP confirmed by 1st trimester US Adequate Care: Yes Ultrasounds: normal mid trimester US (shortened cervix?) Narrative: - CHTN, taking labetalol 200mg PO BID - Current BMI 43.2 - Urinary tract infection during - Bipolar disorder and hx of anxiety/depression/PTSD, taking lamotrigine 100mg PO QD - Nicotine dependence - Marijuana use with an admission at 10wk for cyclic vomiting vs hyperemesis with electrolyte correction - GERD taking protonix - Chronic neck pain managed with opiates until +hcg - Gestational diabetes mellitus - Care with Dr. Friedman Last delivery 7 years ago, proven to 7lb, had pre-eclampsia and GDM Labs Maternal Blood Type: O Pos Labs: Negative: RPR, Hepatitis B, Rubella Titre, HIV, Chlamydia and Gonorrhea and Unknown: Herpes Type 1, Herpes Type 2, Group Beta Strep and Covid-19 Narrative: O+,abs-, rpr nr, rub IM, hiv-,HC-, HBSAG-, gc/ct-, A1: 5.7 elevated 1hr glucola, vomited 3hr GTT and fingersticks not done Review of Systems Review of Systems Narrative Review of Systems: Review of Systems Systems Reviewed: All systems reviewed, normal except as documented Constitutional Constitutional: Denies body ache(s), Denies chills, Denies fever(s) and Denies headache(s) ENT Ears, Nose, Mouth, and Throat: Denies headache(s) and Denies vertigo Cardiovascular Cardiovascular: Denies chest pain, Denies palpitations, Denies dyspnea and Denies syncope Respiratory Respiratory: Denies cough, Denies dyspnea Gastrointestinal Gastrointestinal: Denies nausea and Denies vomiting Neurologic Neurologic: Denies convulsions, Denies headache(s), Denies other visual disturbances, Denies syncope and Denies vertigo Past Medical History Family History OTHER FAMILY HX: non-contributory Surgical History SURGICAL: Negative Section Social History SOCIAL: No ETOH during . Smokes cigarettes occasionally. Hx of marijuana use with associated cyclic vomiting. Patient had concerns during regarding her boyfriend's fidelity and requested STI screening Past Medical History Comments PMH COMMENT: - CHTN - Current BMI 43.2 - Bipolar disorder and hx of anxiety/depression/PTSD - Nicotine dependence - Marijuana use - Chronic neck pain managed with opiates until +hcg Meds Home Medications and Allergies Home Medications ?Medication ?Instructions ?Recorded ?Confirmed ?Type Lactobacillus 40-Bifidobact 2 cap PO DAILY 04/15/25 04/15/25 History 3-S.thermophilus 100 billion cell capsule (Probiotic) cetirizine 10 mg tablet (All Day 10 mg PO QDAY PRN allergy symptoms 04/15/25 04/15/25 History Allergy (cetirizine)) cholecalciferol (vitamin D3) 50 2,000 unit PO QDAY 04/15/25 04/15/25 History mcg (2,000 unit) capsule folic acid 800 mcg tablet 800 mcg PO QDAY 04/15/25 04/15/25 History lamotrigine 100 mg tablet 100 mg PO DAILY UD 04/15/25 04/15/25 History omega 1-vws-pqw-fish oil 900 2 cap PO DAILY 04/15/25 04/15/25 History mg-1,400 mg capsule,delayed release (Fish Oil) vitamins no.180-ferrous 2 tab PO DAILY 04/15/25 04/15/25 History fumarate 27 mg-folic acid 1 mg tablet ( Plus Vitamin-Mineral) pyridoxine (vitamin B6) 100 mg 100 mg PO QDAY 04/15/25 04/15/25 History tablet Allergies Allergy/AdvReac Type Severity Reaction Status Date / Time clavulanic acid (From Allergy Severe burning Verified 04/15/25 20:16 Augmentin) sensation amoxicillin (From Augmentin) AdvReac Severe burning Verified 04/15/25 20:16 sensation ibuprofen AdvReac Severe DUE TO Verified 04/15/25 20:16 KIDNEYS OB Exam Physical Exam Vital signs: Temp Pulse Resp BP 98.2 F 84 18 115/60 04/16/25 06:30 04/16/25 06:30 04/16/25 06:30 04/16/25 06:30 Narrative: General: well developed, well nourished, no acute distress, conversant Cardiac: normal heart rate Lungs: breathing without distress Abdomen: soft, gravid, non-tender, no rebound or guarding Extremities: no pain with palpation of calves Detailed Labor and Delivery Exam Dilation (cm): 1 Effacement (%): 0 Cervix position: posterior station: -3 Presentation: Vertex Membranes: intact monitor accelerations: 15x15 monitor decelerations: None assisted variability: Moderate (11-25) OB Results Labs 04/15/25 19:30 04/15/25 19:30 Labs: Short CBC 04/15/25 Range/Units 19:30 WBC 14.8 H (3.6-11.0) Thou/mm3 Hgb 10.0 L (12.0-16.0) g/dL Hct 31.0 L (36.0-46.0) % Plt Count 314 (140-440) Thou/mm3 BMP 04/15/25 19:30 Sodium 140 Potassium 3.5 Chloride 105 Carbon Dioxide 22.8 BUN 8 L Creatinine 0.6 Glucose 109 H Calcium 9.2 Liver Function 04/15/25 Range/Units 19:30 Total Bilirubin 0.5 (0.3-1.2) mg/dL AST 28 (0-34) U/L ALT 18 (10-49) U/L Alkaline Phosphatase 208 H (46-116) U/L Albumin 4.1 (3.5-5.0) gm/dL Urine 04/15/25 Range/Units 19:20 Urine Color Yellow (Lt Yel-Yel) Urine Clarity Turbid A (Clear/Hazy) Urine pH 6.5 (5.0-7.0) Ur Specific [place] 1.029 (1.001-1.035) Urine Protein 1+ A (Neg - Trace) Urine Glucose (UA) 2+ A (Negative) OB Assessment & Plan Assessment and Plan (1) Encounter for induction of labor: Status: Acute Assessment and plan: Saima is a 29yo with SIUP at 38&5wk presenting for IOL for: CHTN, current BMI 43.2. SCE: 1/thick/high. Vitals wnl, benign exam. Reassuring assessment overall. PMhx/PNC significant for: - CHTN, taking labetalol 200mg PO BID - Current BMI 43.2 - Urinary tract infection during - Bipolar disorder and hx of anxiety/depression/PTSD, taking lamotrigine 100mg PO QD - Nicotine dependence - Marijuana use with an admission at 10wk for cyclic vomiting vs hyperemesis with electrolyte correction - Chronic neck pain managed with opiates until +hcg - Possible GDM. 1hr glucola elevated, 3hr GTT vomited, no fingersticks done - Hx of GDM and pre-eclampsia with prior - Anemia, Hgb 10 on admission - Care with Dr. Friedman Plan: -Admit to L&D -Establish IV, routine labs -CEFM -Regular diet [id number], then clear liquid diet in labor -Industrial Green Systems Designer/consent re: iol and -GBS status: negative -Will initiate IOL with: cytotec 25mcg PV Q4hr. She declines cervical olson balloon. -Continue labetalol, lamotrigine, protonix -fingerstick glucose for baseline -Social work consult -Anticipate -Safe to proceed Gissell Siddiqui MD (2) Pre-existing hypertension in third trimester, antepartum: Status: Acute (3) Obesity affecting in third trimester: Status: Acute (4) Nicotine dependence, cigarettes, uncomplicated: Status: Acute (3) Obesity affecting in third trimester Qualifiers: Obesity type affecting : unspecified obesity Qualified Code(s): O99.213 - Obesity complicating , third trimester
[2025-04-16] MEDS: FAMOTIDINE INJ 10 MG/ML VIAL 2 ML 40 MG IVP (06:37)
[2025-04-16] MEDS: LABETALOL 100 MG TABLET 200 MG PO (08:19)
[2025-04-16] MEDS: PRENATAL VITAMIN/FE FUM/FA TABLET 1 TAB PO (08:20)
[2025-04-16] MEDS: FOLIC ACID 1 MG TABLET PO ×2 (08:20)
[2025-04-16] MEDS: fentaNYL CIT INJ 50 mCg/ML AMP 2ML 100 MCG IVP (08:21)
[2025-04-16] MEDS: RINGERS LACTATED 1000 ML 1,000 ML 125 ML IV (09:39)
[2025-04-16] MEDS: OXYTOCIN in NS 20 units 20 UNIT/1,000 ML BAG 125 UNIT IV (10:15)
[2025-04-16] MEDS: BENZO/LANO/ALOE (Dermoplast) 60 GM CAN 1 SPRAY TOP (10:17)
--- NOTE | 2025-04-16 12:11 | OBDSUM_ITS ---
Data (Lewis) Data Hx Section: No : 2 Term: 1 : 1 Livin Abortions: Spontaneous & Theraputic: 0 Delivery Data (Lewis) Labor Data Initiation of labor: Spontaneous Induction/Augmentation Agent: Cytotec-PO and Cytotec-Vaginal ROM date: 04/16/25 ROM time: 09:34 Amniotic membrane rupture type: Spontaneous Amniotic fluid description: Clear Delivery Data Onset of labor date: 04/15/25 Onset of labor time: 20:06 Complete dilation date: 04/16/25 Complete dilation time: 10:00 [place] delivery date: 04/16/25 delivery time: 10:12 Placenta delivery date: 04/16/25 Placenta delivery time: 10:23 Stage 1 total time: Labor - Stage 1 Duration 13 hours and 54 minutes Delivered by: dr ruiz Delivery nurse: kennedy Aquino nurse: savita wells Environmental Compliance Inspector at delivery: No Delivery Method Delivery method: Normal Vaginal Delivery Presentation: Vertex Anesthesia Type Anesthesia Type: Spinal Placenta Placenta delivery description: Spontaneous Cord blood sent to lab: Yes cord blood collection: Cord Blood Type Episiotomy Episiotomy description: None EBL Estimated blood loss (ml): 150 Umbilical Cord cord description: 3 Vessels Additional Procedures Saima is a 29yo [id number] s/p uncomplicated at 38&5wk after undergoing IOL for CHTN with currrent BMI 43.2, delivering at 1012 on 04/16/2025. On presentation, SCE was 1/thick/high. She progressed with just 2 doses of vaginal cytotec to C/C/+2 at which point she began pushing. She received an epidural just prior to delivery. With good maternal pushing efforts, infant's head delivered OA and restituted PAPO. Right anterior shoulder delivered easily followed by posterior shoulder and corpus. Left compound hand noted. Infant had spontaneous cry and was vigorous. Apgars 8/9. Infant placed on maternal abdomen where nose/mouth were suctioned and dried/stimulated. After approximately 2 minutes, cord was clamped x2 and cut by Saima. Cord blood collected for typing. With fundal massage and cord traction, placenta delivered spontaneously and intact with 3 vessel centrally inserted cord. Bimanual massage performed and IV pitocin given per protocol with fundus then firm at u-2cm and hemostasis noted. Inspection of perineum and vagina revealed a tiny aimee-urethral jimi and a very small 1st degree midline perineal laceration which were repaired with a couple figure of 8's using 3-0 vicryl- total reapproximation and hemostasis achieved. Sweep just within cervix/CARMEN performed which retrieved a small amount of clot. Bimanual massage performed with firm fundus and CARMEN. Cytotec 800mcg SC placed. All counts correct x2. Mom and infant were doing well when I left the room. Gissell Ruiz MD Complications Complications: none Data (Lewis) [place] Data order: 1 's gender: Male Identification band number: [id number] 1 minute: 8 5 minutes: 9
--- NOTE | 2025-04-16 18:31 | PC.NURSE ---
1630 Assisted pt to the toilet to void twice, small amount of bleeding.
[2025-04-16 19:03] LABS: Basophils # (Auto) 0.0 Thou/mm3 (0.0-0.2); Basophils % (Auto) 0 % (0-2.5); Eosinophils # (Auto) 0.0 Thou/mm3 (0.0-0.5); Eosinophils % (Auto) 0 % (0-10); Hematocrit 29.0 % (36.0-46.0); Hemoglobin 9.3 g/dL (12.0-16.0); Immature Granulocytes Auto 0.14 Thou/mm3 (0.00-0.00); Lymphocytes # (Auto) 2.8 Thou/mm3 (1.0-4.8); Lymphocytes % (Auto) 18 % (10-50); Mean Corpuscular HGB Conc 32.1 g/dl (31.0-37.0); Mean Corpuscular Hemoglobin 22.7 pg (25.0-35.0); Mean Corpuscular Volume 71 fL (80-100); Monocytes # (Auto) 1.4 Thou/mm3 (0.0-0.8); Monocytes % (Auto) 10 % (0-12); Neutrophils # (Auto) 10.7 Thou/mm3 (1.8-7.7); Neutrophils % (Auto) 71 % (37-80); Nucleated Red Blood Cell # 0.00 Thou/mm3 (0.00-0.00); Nucleated Red Blood Cell % 0 /100 WBC (0); Platelet Count 246 Thou/mm3 (140-440); RDW Standard Deviation 36.5 fL (36.4-46.3); Red Blood Count 4.10 Miln/mm3 (4.00-5.20); White Blood Count 15.1 Thou/mm3 (3.6-11.0)
[2025-04-16] MEDS: DOCUSATE SOD 100 MG CAPSULE PO (20:11)
[2025-04-16] MEDS: ACETAMINOPHEN 325 MG TABLET 650 MG PO (20:12)
[2025-04-17 00:10] VITALS: BP 142/90; PULSE 83; RESP 16; TEMP 36.9; O2SAT 98
[2025-04-17 08:40] VITALS: BP 139/88; PULSE 88; RESP 19; TEMP 36.5; O2SAT 98
[2025-04-17] MEDS: PRENATAL VITAMIN/FE FUM/FA TABLET 1 TAB PO (08:55)
[2025-04-17] MEDS: ACETAMINOPHEN 325 MG TABLET 650 MG PO (08:56)
[2025-04-17] MEDS: DOCUSATE SOD 100 MG CAPSULE PO (08:56)
[2025-04-17] MEDS: CHOLECALCIFEROL (Vitamin D3) 1,000 IU TABLET 2000 IU PO (08:57)
[2025-04-17] MEDS: LACTOBACILLUS RHAMNOSUS 1 CAP PO (08:57)
[2025-04-17] MEDS: PANTOPRAZOLE 40 MG TABLET PO (08:57)
[2025-04-17] MEDS: PYRIDOXINE 50 MG TABLET 100 MG PO (08:57)
--- NOTE | 2025-04-17 09:10 | PC.NURSE ---
Public Safety Dispatcher came to see patient. Pt tested postive for THC on admission. Baby negative. High risk referral sent.
[2025-04-17 09:11] VITALS: BP 139/88; PULSE 88
[2025-04-17] MEDS: LABETALOL 100 MG TABLET 200 MG PO (09:11)
--- NOTE | 2025-04-17 11:18 | PC.SS ---
CWS verbal report submitted to CWS staff, Ilya Hong. Written report submitted electronically to CWS screening unit. Report placed in patient's chart. CWS staff informed MANIPULATIVE THERAPY SPECIALIST no barrier to patient discharging. If circumstance change CWS will notify MANIPULATIVE THERAPY SPECIALIST. MANIPULATIVE THERAPY SPECIALIST updated bedside nurse.
--- NOTE | 2025-04-17 11:38 | PC.NURSE ---
Post depression screen is 12. Contacted SS and Resources given.
[2025-04-17] MEDS: DIPHTH,PERTUSS(ACELL),TET VAC 0.5 ML SYR- ADULT IMi (12:09)
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
== END 2025-04-17 13:34 | disposition home or self-care (01) | DRG 560 ==
LOC: S4SX 04-16 17:38 → S4NX 04-16 18:37
PROVIDERS: Admitting Provider Obstetrics & Gynecology; PCP Family Medicine; Visit Provider Obstetrics & Gynecology
DX: O16.4 Unspecified maternal hypertension, complicating childbirth (principal); Z37.0 Single live birth; Z3A.38 38 weeks gestation of pregnancy; O99.214 Obesity complicating childbirth; O99.334 Smoking (tobacco) complicating childbirth; F17.210 Nicotine dependence, cigarettes, uncomplicated; O99.02 Anemia complicating childbirth; O99.344 Other mental disorders complicating childbirth; F31.9 Bipolar disorder, unspecified; F43.10 Post-traumatic stress disorder, unspecified; G89.29 Other chronic pain; O26.873 Cervical shortening, third trimester; Z88.6 Allergy status to analgesic agent; Z88.1 Allergy status to other antibiotic agents
CPT/HCPCS: 36415; 59409; 80053; 80307; 81001; 82570; 84156; 84550; 85025; 85384; 85610; 85730; 86780; 86850; 86900; 86901; 90707; 90715; 94762; J2405; J2590; J2795; J3010; J3490; J7120; S0191; A9270